=== PATIENT | male | born 1965 | race Caucasian/White ===

== ENCOUNTER 2017-08-03 10:55 | Day surgery (SDC) | payer MEDICARE, OTHER ==
[2017-07-14 15:15] VITALS: BMI 35.6
[~2017-08-03 10:55] MED LIST: LACTATED RINGERS 1,000 ML IV SCH
[2017-08-03 11:55] VITALS: RESP 18; TEMP 98
[2017-08-03] MEDS ORDERED: LIDOCAINE 1% 20 ML VIAL (10MG/ML) FOR IV START INTRADERMA ONE (12:03)
[2017-08-03] MEDS ORDERED: LIDOCAINE 1% INJ 10MG/ML (20 ML MDV) ONE (12:36)
[2017-08-03] MEDS ORDERED: PROPOFOL 10 MG/ML 20 ML VIAL IV ONE (12:36)
--- NOTE | 2017-08-03 13:27 | P.PCN ---
Date of Procedure: 08/03/17 Procedure(s) Performed: Procedures: Esophagogastroduodenoscopy and biopsy. Colonoscopy through ostomy. Preoperative diagnosis: Chronic reflux symptoms and blood in the stool. Postoperative diagnosis: 1. Very small sliding hiatal hernia with no obvious esophagitis or complicated reflux disease. 2. Mild antral gastritis with no ulcers or gastric outlet obstruction. 3. S/P Batista's sigmoid resection with placement of colostomy. 4. Sigmoid diverticulosis with no evidence of acute diverticulitis or strictures. 5. No polyps or tumors. Preparation: HalfLytely prep. Sedation: Was provided by anesthesia Brief clinical history: The patient is a 52-year-old male who is scheduled for this evaluation because of chronic reflux symptoms and because of history of tubular adenoma and prior sigmoid resection for complicated diverticular disease with placement of colostomy. The patient wants to have the colostomy reversed reversed if possible. Procedure: With the patient on his left lateral decubitus position and after informed consent and adequate sedation, I passed the Olympus-GIF 160 video upper endoscope through the cricopharyngeus down the esophagus. GE junction was around 42-43 cm from the incisors and there was a very small sliding hiatal hernia. The esophagus did not show any erosions, ulcers, strictures or Rascon' s esophagus. The endoscope was then passed into the stomach which was insufflated with air and inspected in detail including the retroflex view in the cardia. There was some mottling and erythema in the antrum but no ulcers or erosions. Pyloric channel, duodenal bulb, post bulbar area and descending duodenum appeared within normal limits. Because of his symptoms, I obtained biopsies from the duodenum in addition to biopsies from the antrum and esophagus then the endoscope was withdrawn and I proceeded with colonoscopy through the ostomy site. The ostomy area appeared healthy and there was evidence of herniation in its immediate proximity. The Olympus CFQ 160L video colonoscope was then inserted through the ostomy site and advanced to the cecum. There was diverticulosis in the sigmoid as previously described with no evidence of acute diverticulitis or strictures. No polyps or tumors were seen. The patient tolerated the procedure well. Plan: The patient was reassured. Will await biopsy results. The patient will schedule follow-up visit with surgery for evaluation for candidacy for revision of his colostomy. With her history of polyps, I am recommending repeat exam in 5 years.
[2017-08-03 13:31] VITALS: BP 103/62; PULSE 87
== END 2017-08-03 14:11 | disposition home or self-care (01) ==
LOC: ORWHC2ENDO 10:55
DX: K29.50 Unspecified chronic gastritis without bleeding (principal); K44.9 Diaphragmatic hernia without obstruction or gangrene; K57.30 Diverticulosis of large intestine without perforation or abscess without bleeding; Z90.49 Acquired absence of other specified parts of digestive tract; Z93.3 Colostomy status; K21.9 Gastro-esophageal reflux disease without esophagitis; K92.1 Melena; Z86.010 Personal history of colon polyps; J44.9 Chronic obstructive pulmonary disease, unspecified; I10 Essential (primary) hypertension; G47.33 Obstructive sleep apnea (adult) (pediatric); E07.9 Disorder of thyroid, unspecified; F41.9 Anxiety disorder, unspecified; Z91.030 Bee allergy status; Z91.09 Other allergy status, other than to drugs and biological substances; Z79.891 Long term (current) use of opiate analgesic; Z79.51 Long term (current) use of inhaled steroids; Z79.899 Other long term (current) drug therapy
CPT/HCPCS: 88305; 88342; 44388; 43239; J2001; J2704

== ENCOUNTER → 2017-11-13 | Outpatient (CLI) | payer MEDICARE, OTHER ==
[2017-11-13 10:57] LABS: HCT 44.6 % (39.0-53.0); HGB 14.8 gm/dL (13.0-17.5); MCH 31.4 pg (25.0-35.0); MCHC 33.2 g/dL (31.0-37.0); MCV 94.5 fL (80.0-100.0); Mean Platelet Volume 7.8; Platelet Count 214 k/uL (150-450); RBC 4.72 m/uL (4.30-5.90); WBC 8.3 k/uL (3.8-10.6)
[2017-11-13 11:24] LABS: Potassium 4.7 mmol/L (3.5-5.1)
== END | disposition home or self-care (01) ==
LOC: LABPAT 10:16
PROVIDERS: ATTEND Surgery
DX: Z01.812 Encounter for preprocedural laboratory examination (principal); K57.32 Diverticulitis of large intestine without perforation or abscess without bleeding; Z01.818 Encounter for other preprocedural examination
CPT/HCPCS: 36415; 80051; 85027; 86850; 86900; 86901

== ENCOUNTER 2017-11-17 09:12 | Day surgery (SDC) | payer MEDICARE, OTHER ==
[2017-11-16 10:28] VITALS: BMI 35.9
[2017-11-17 09:54] VITALS: TEMP 98
[2017-11-17] MEDS ORDERED: LIDOCAINE 1% INJ 10MG/ML (20 ML MDV) ONE (10:31)
[2017-11-17] MEDS ORDERED: PROPOFOL 10 MG/ML 20 ML VIAL IV ONE (10:31)
--- NOTE | 2017-11-17 10:35 | P.GSHP ---
History of Present Illness H&P Date: 11/17/17 Chief Complaint: GERD, history of perforated diverticulitis This is a 52-year-old male who is with of GERD. Patient also has a history of previous perforated diverticulitis with colostomy. Patient presents today for EGD colonoscopy. He will be undergoing reversal of colostomy in the near future. Past Medical History Past Medical History: Asthma, COPD, GERD/Reflux, Hypertension, Pneumonia, Skin Disorder, Sleep Apnea/CPAP/BIPAP, Thyroid Disorder Additional Past Medical History / Comment(s): HX OF DIVERTICULITIS, PERFORATED COLON DURING COLONOSCOPY (2010) - HAS COLOSTOMY., SKIN BREAKDOWN AROUND STOMA., INCISIONAL AND STOMA HERNIA., HX OF HEART MURMUR & ASTHMA A CHILD. , SOB WITH STAIRS., BACK PAIN , UNABLE TO STAND FOR LONG PERIODS., USES SLEEP APNEA MACHINE. History of Any Multi-Drug Resistant Organisms: MRSA Date of last positivie culture/infection: 2010 MDRO Source:: abdominal incision Past Surgical History: Bowel Resection Additional Past Surgical History / Comment(s): colostomy for ruptured diverticulitis in 2010, colonsocopy, WRIST SURGERY. Past Anesthesia/Blood Transfusion Reactions: No Reported Reaction Additional Past Anesthesia/Blood Transfusion Reaction / Comment(s): . Past Psychological History: Anxiety, Depression Smoking Status: Current every day smoker Past Alcohol Use History: None Reported Additional Past Alcohol Use History / Comment(s): SMOKES 1 PPD OR LESS. STARTED SMOKING AGE 8. Past Drug Use History: Marijuana Additional Drug Use History / Comment(s): CURRENT MARIJUANA USE. , INSTRUCTED NO MARIJUANA FOR 24 HOURS PRIOR TO SURGERY. - Past Family History Mother Family Medical History: Cancer Sister(s) Family Medical History: Cancer Mother Sister(s) Family Medical History: Cancer Medications and Allergies Home Medications Medication Instructions Recorded Confirmed Type Albuterol Inhaler [Ventolin 1 - 2 puff INHALATION QID PRN 10/04/14 11/17/17 History Inhaler] Albuterol Nebulized [Ventolin 2.5 mg INHALATION QID PRN 10/04/14 11/17/17 History Nebulized] Budesonide-Formot 160-4.5 Mcg 2 puff INHALATION BID 10/04/14 11/17/17 History [Symbicort 160-4.5 Mcg Inhaler] Lisinopril [Lisinopril] 40 mg PO QAM 10/04/14 11/17/17 History Ranitidine HCl 150 mg PO BID 10/04/14 11/17/17 History buPROPion XL [Wellbutrin XL] 150 mg PO QAM 10/04/14 11/17/17 History ALPRAZolam [Xanax] 1 mg PO BID PRN 07/14/17 11/17/17 History HYDROcodone/APAP 7.5-325MG [[place] 1 tab PO BID PRN 07/14/17 11/17/17 History 7.5-325] Levothyroxine Sodium [Synthroid] 50 mcg PO QAM 07/14/17 11/17/17 History Loratadine [Claritin] 10 mg PO DAILY PRN 07/14/17 11/17/17 History Omeprazole [PriLOSEC] 20 mg PO DAILY 07/14/17 11/17/17 History Fluticasone Nasal [place] [Flonase 1 spray EA NOSTRIL DAILY 11/16/17 11/17/17 History Nasal [place]] Ibuprofen 400 mg PO ONCE PRN 11/16/17 11/17/17 History Allergies Allergy/AdvReac Type Severity Reaction Status Date / Time bee pollen Allergy Severe Swelling Verified 11/17/17 09:43 tiotropium Allergy Unknown States Verified 11/17/17 09:43 [From Spiriva with Breathing HandiHaler] worse. COLOPLAST BRAND COLOSCOPY BAG AdvReac Rash/Hives Uncoded 11/17/17 09:43 Surgical - Exam Vital Signs Temp Pulse BP Pulse Ox 98 F 90 108/68 96 11/17/17 09:51 11/17/17 09:51 11/17/17 09:51 11/17/17 09:51 - General well developed, no distress - Eyes PERRL - ENT normal pinna - Neck no masses - Respiratory normal expansion - Cardiovascular Rhythm: regular - Abdomen Large parastomal hernia and incisional hernia Abdomen: soft, non tender Assessment and Plan Assessment: GERD with history of colostomy due to perforated diverticula is. We'll perform EGD and colonoscopy.
--- NOTE | 2017-11-17 10:52 | P.OP ---
Date of Procedure: 11/17/17 Preoperative Diagnosis: GERD History of diverticulitis Postoperative Diagnosis: Antral gastritis Mild diverticulosis Procedure(s) Performed: EGD Colonoscopy Anesthesia: MAC Surgeon: Parish Perez Pathology: other (Antrum) Condition: stable Disposition: PACU Description of Procedure: The patient's placed on the endoscopy table in the lateral position. He received IV sedation. The gastroscope placed oropharynx passed in the esophagus and stomach. Scope was then placed through the pylorus. The first and second portion of the duodenum appeared normal. The scope was then brought back and the antrum this appeared mildly inflamed. A biopsies performed. The scope was then retroflexed and remainder stomach appeared normal. There is no significant hiatal hernia. The GE junction was at40 cm the distal esophagus appeared normal. The proximal esophagus. Normal. Scope was withdrawn for patient. Next digital rectal exam was performed which revealed no abnormalities. The flexible colonoscope was then placed patient anus and passed throughout the rectal stump. The rectal stump measured approximately 20 cm length. There were no polyps or tumors seen rectal stump. The scope was withdrawn for patient. Next the colonic scope was placed the patient's colostomy and passed throughout the entire colon. The ileocecal valve was visualized. The cecum, ascending colon appeared normal. In the transverse colon was a few scattered diverticuli. The scope was then brought back the descending colon and this appeared normal. Scope was withdrawn for patient.
[2017-11-17 11:53] VITALS: BP 110/60; PULSE 92; RESP 16
== END 2017-11-17 11:54 | disposition home or self-care (01) ==
LOC: ORWHC2ENDO 09:12
PROVIDERS: ATTEND Surgery
DX: K29.50 Unspecified chronic gastritis without bleeding (principal); K57.90 Diverticulosis of intestine, part unspecified, without perforation or abscess without bleeding; Z93.3 Colostomy status; K21.9 Gastro-esophageal reflux disease without esophagitis; J44.9 Chronic obstructive pulmonary disease, unspecified; I10 Essential (primary) hypertension; F17.210 Nicotine dependence, cigarettes, uncomplicated; Z87.01 Personal history of pneumonia (recurrent); E07.9 Disorder of thyroid, unspecified; F41.9 Anxiety disorder, unspecified; F32.9 Major depressive disorder, single episode, unspecified; G47.33 Obstructive sleep apnea (adult) (pediatric); Z99.89 Dependence on other enabling machines and devices; Z79.51 Long term (current) use of inhaled steroids; Z79.899 Other long term (current) drug therapy; Z91.030 Bee allergy status; Z88.8 Allergy status to other drugs, medicaments and biological substances; Z91.09 Other allergy status, other than to drugs and biological substances
CPT/HCPCS: 88305; 44388; 43239; J2001; J2704

== ENCOUNTER 2017-11-18 08:57 | Inpatient (IN) | payer MEDICARE, OTHER ==
[2017-11-16 10:44] VITALS: BMI 35.9
[~2017-11-18 08:57] MED LIST changes: +DEXAMETHASONE SOD PHOSPHATE 10 MG/ML 1 ML VIAL IV ONE; +HEPARIN SODIUM,PORCINE 5,000 UNIT/ML 1 ML VIAL SQ ONE; +HYDROmorphone 0.5 MG/0.5 ML SYRINGE IVP PRN; +MIDAZOLAM 2 MG/2 ML VIAL IV PRN; +ONDANSETRON 4 MG/2 ML VIAL IVP ONE; +ceFAZolin IN SWFI 2 GM/20 ML SYRINGE IVP ONE; +metroNIDAZOLE-NS PMX 500 MG in SALINE 1 100ML.BAG IVPB ONE
[2017-11-18] MEDS ORDERED: fentaNYL (PF) 50 MCG/ML 2 ML AMP IV ONE (10:05)
[2017-11-18] MEDS ORDERED: NALOXONE 0.4 MG/ML 1 ML VIAL IV PRN (10:50)
--- NOTE | 2017-11-18 11:24 | P.GSHP ---
History of Present Illness H&P Date: 11/18/17 Chief Complaint: History of perforated diverticulitis This a 52-year-old male who presents today for reversal of colostomy and repair of parastomal hernia. Patient underwent Adam procedure approximately 7 years ago. Patient presents today for reversal of colostomy area patient was reversed surgery including wound infection, recurrent colostomy bleeding. Past Medical History Past Medical History: Asthma, COPD, GERD/Reflux, Hypertension, Pneumonia, Skin Disorder, Sleep Apnea/CPAP/BIPAP, Thyroid Disorder Additional Past Medical History / Comment(s): HX OF DIVERTICULITIS, PERFORATED COLON DURING COLONOSCOPY (2010) - HAS COLOSTOMY., SKIN BREAKDOWN AROUND STOMA., INCISIONAL AND STOMA HERNIA., HX OF HEART MURMUR & ASTHMA A CHILD. , SOB WITH STAIRS., BACK PAIN , UNABLE TO STAND FOR LONG PERIODS., USES SLEEP APNEA MACHINE. History of Any Multi-Drug Resistant Organisms: MRSA Date of last positivie culture/infection: 2010 MDRO Source:: abdominal incision Past Surgical History: Bowel Resection Additional Past Surgical History / Comment(s): colostomy for ruptured diverticulitis in 2010, colonsocopy, WRIST SURGERY. Past Anesthesia/Blood Transfusion Reactions: No Reported Reaction Additional Past Anesthesia/Blood Transfusion Reaction / Comment(s): . Past Psychological History: Anxiety, Depression Smoking Status: Current every day smoker Past Alcohol Use History: None Reported Additional Past Alcohol Use History / Comment(s): SMOKES 1 PPD OR LESS. STARTED SMOKING AGE 8. Past Drug Use History: Marijuana Additional Drug Use History / Comment(s): CURRENT MARIJUANA USE. , INSTRUCTED NO MARIJUANA FOR 24 HOURS PRIOR TO SURGERY. - Past Family History Mother Family Medical History: Cancer Sister(s) Family Medical History: Cancer Mother Sister(s) Family Medical History: Cancer Medications and Allergies Home Medications Medication Instructions Recorded Confirmed Type Albuterol Inhaler [Ventolin 1 - 2 puff INHALATION QID PRN 10/04/14 11/17/17 History Inhaler] Albuterol Nebulized [Ventolin 2.5 mg INHALATION QID PRN 10/04/14 11/17/17 History Nebulized] Budesonide-Formot 160-4.5 Mcg 2 puff INHALATION BID 10/04/14 11/17/17 History [Symbicort 160-4.5 Mcg Inhaler] Lisinopril [Lisinopril] 40 mg PO QAM 10/04/14 11/17/17 History Ranitidine HCl 150 mg PO BID 10/04/14 11/17/17 History buPROPion XL [Wellbutrin XL] 150 mg PO QAM 10/04/14 11/17/17 History ALPRAZolam [Xanax] 1 mg PO BID PRN 07/14/17 11/17/17 History HYDROcodone/APAP 7.5-325MG [[place] 1 tab PO BID PRN 07/14/17 11/17/17 History 7.5-325] Levothyroxine Sodium [Synthroid] 50 mcg PO QAM 07/14/17 11/17/17 History Loratadine [Claritin] 10 mg PO DAILY PRN 07/14/17 11/17/17 History Omeprazole [PriLOSEC] 20 mg PO DAILY 07/14/17 11/17/17 History Fluticasone Nasal [place] [Flonase 1 spray EA NOSTRIL DAILY 11/16/17 11/17/17 History Nasal [place]] Ibuprofen 400 mg PO ONCE PRN 11/16/17 11/17/17 History Allergies Allergy/AdvReac Type Severity Reaction Status Date / Time bee pollen Allergy Severe Swelling Verified 11/18/17 09:49 tiotropium Allergy Unknown States Verified 11/18/17 09:49 [From Spiriva with Breathing HandiHaler] worse. COLOPLAST BRAND COLOSCOPY BAG AdvReac Rash/Hives Uncoded 11/18/17 09:49 Surgical - Exam Vital Signs Temp Pulse Resp BP Pulse Ox 97.8 F 88 16 150/61 95 11/18/17 09:25 11/18/17 09:25 11/18/17 09:25 11/18/17 09:25 11/18/17 09:25 - General well developed, no distress - Eyes PERRL - ENT normal pinna - Neck no masses - Respiratory normal expansion - Cardiovascular Rhythm: regular - Abdomen Left lower quadrant colostomy. There is evidence of ventral hernia and parastomal hernia Abdomen: soft, non tender Assessment and Plan Assessment: History of perforated diverticulitis. Patient will undergo reversal of colostomy and repair of parastomal/ventral hernia
[2017-11-18] MEDS ORDERED: PHENYLEPHRINE-0.9% NACL SYG 1 MG/10 ML SYRINGE ONE (12:06)
[2017-11-18] MEDS ORDERED: VECURONIUM 10 MG VIAL IV ONE (12:06)
[2017-11-18] MEDS ORDERED: PROPOFOL 10 MG/ML 20 ML VIAL IV ONE (12:06)
[2017-11-18] MEDS ORDERED: KETAMINE 10 MG/ML 20 ML VIAL ONE (12:06)
[2017-11-18] MEDS ORDERED: LIDOCAINE 1% INJ 10MG/ML (20 ML MDV) ONE (12:06)
[2017-11-18] MEDS ORDERED: MIDAZOLAM 2 MG/2 ML VIAL ONE (12:06)
[2017-11-18] MEDS ORDERED: SUCCINYLCHOLINE CHLORIDE VIAL 200 MG/10 ML VIAL IV ONE (12:06)
[2017-11-18] MEDS ORDERED: fentaNYL (PF) 50 MCG/ML 2 ML AMP ONE (12:06)
[2017-11-18] MEDS ORDERED: ALBUTEROL INHALER 60 PUFF/8 GM INHALER INHALATION ONE (12:06)
[2017-11-18] MEDS ORDERED: LACTATED RINGERS 1,000 ML IV ONE ×2 (13:08→15:13)
[2017-11-18] MEDS ORDERED: MORPHINE SULFATE 4 MG/ML SYRINGE IVP PRN (15:27)
[2017-11-18] MEDS ORDERED: BENZOCAINE/MENTHOL LOZENG 1 EACH LOZENGE MUCOUS MEM PRN (15:27)
[2017-11-18] MEDS: BUPIVACAINE (PF) 0.5% 31.3 ML, HYDROMORPHONE (PF) 5 MG in SODIUM CHLORIDE 0.9% 218 ML EPIDURAL PRN (15:44)
[2017-11-18] MEDS ORDERED: BUPIVACAINE (PF) 0.25% 30 ML VIAL EPIDURAL ONE (16:00)
--- NOTE | 2017-11-18 16:29 | P.OP ---
Date of Procedure: 11/18/17 Preoperative Diagnosis: History of perforated diverticulitis Incarcerated incisional and parastomal hernia Postoperative Diagnosis: Adhesions Incarcerated incisional hernia Incarcerated parastomal hernia Severe scarring of rectal stump Procedure(s) Performed: Lysis of adhesions Repair of incarcerated incisional hernia Repair of incarcerated parastomal hernia Partial colectomy Omentectomy Takedown of splenic flexure Anesthesia: HARMAN Surgeon: Parish Perez Estimated Blood Loss (ml): 20 Pathology: other (Omentum, colon) Condition: stable Disposition: PACU Description of Procedure: The patient's placed the operative table in the supine position. He received general anesthesia. He was then placed in dorsal lithotomy position. His abdomen was prepped and draped in usual sterile fashion. The skin was entered through the midline. There was a large incisional hernia located underneath the skin. The incarcerated hernia containing omentum. Was entered. And then the omentum was dissected off of the abdominal wall. Several pieces of omentum was sent to pathology. These were transected with the LigaSure device. The stoma was then transected at the fascial level using a GI stapler. And then approximately 20 minutes of operative time used to lyse adhesions and small bowel. The white line of T[place] was divided in the left colon was mobilized. The splenic flexure was taken down. An adequate length of colon was found and then the pursestring device is placed on the proximal colon and the colon was opened and the 25 mm EEA stapler anvil was placed in the colon and the pursestring was secured. At this point the rectal stump was visualized. There is a Prolene tags on the rectal stump. There was dense inflammatory changes in the patient's pelvis. At this point the 25 mm dilator was placed patient anus and into the rectum. The rectal stump was below the peritoneal reflection. The peritoneal reflection was opened using left cautery and then the rectal stump was visualized. The rectal stump was quite scarred. During mobilization of the dilator there was a tear of the rectal stump. The dilator was visualized. At this point it was decided not to reverse the colostomy. A suitable spot for the colostomy was chosen left upper quadrant. The fascia in the midline was repaired using looped PDS suture. Skin was closed rajendra. The colostomy was then excised by dividing mucus containing is junction and then using electrocautery the colostomy was dissected free. There was a large piece of incarcerated omentum within the colostomy site. This was transected using the LigaSure device. The fascia of the colostomy site was then closed using 0 Ethibond suture. A LUPE drains placed through separate stab incision and secured to skin. The skin was then closed rajendra. Next the colostomy then matured with 3-0 Vicryl suture. Patient was sent to recovery room stable condition.
[2017-11-18] MEDS: ONDANSETRON 4 MG/2 ML VIAL IVP PRN (18:46)
[2017-11-18 19:10] LABS: HCT 47.7 % (39.0-53.0); HGB 16.5 gm/dL (13.0-17.5); MCH 32.5 pg (25.0-35.0); MCHC 34.6 g/dL (31.0-37.0); Mean Platelet Volume 7.6; Platelet Count 260 k/uL (150-450); RBC 5.08 m/uL (4.30-5.90); RDW 12.9 % (11.5-15.5); WBC 19.7 k/uL (3.8-10.6)
[2017-11-18 19:20] LABS: Anion Gap 12 mmol/L; Blood Urea Nitrogen 22 mg/dL (9-20); Calcium 8.9 mg/dL (8.4-10.2); Carbon Dioxide 22 mmol/L (22-30); Chloride 104 mmol/L (98-107); Glucose 173 mg/dL (74-99); Potassium 4.8 mmol/L (3.5-5.1); Sodium 138 mmol/L (137-145)
[2017-11-18 19:44] LABS: Band Neutrophils % 4 %; Neutrophils % (M) 87 %; Nucleated Red Blood Cells 0 /100 WBC (0-0); Polychromasia Present; Total Cells Counted 100
[2017-11-18 19:49] LABS: Lymphocytes # (M) 0.59 k/uL (1.0-4.8); Monocytes # (M) 1.18 k/uL (0-1.0)
[2017-11-18] MEDS: D5-0.45% NACL WITH KCL 20MEQ/L 1,000 ML IV SCH (20:25)
[2017-11-18] MEDS: ALVIMOPAN 12 MG CAPSULE PO SCH (20:27)
[2017-11-18] MEDS: FAMOTIDINE 20 MG/2 ML VIAL IV SCH (20:27)
[2017-11-18] MEDS ORDERED: FAMOTIDINE 20 MG TAB PO SCH (21:00)
[2017-11-18] MEDS: SYMBICORT 160-4.5 MCG INHALER INHALATION SCH (21:39)
[2017-11-19] MEDS: D5-0.45% NACL WITH KCL 20MEQ/L 1,000 ML IV SCH ×5 (04:29→22:09)
[2017-11-19] MEDS: LEVOTHYROXINE 50 MCG TAB PO SCH (04:30)
[2017-11-19] MEDS: FAMOTIDINE 20 MG/2 ML VIAL IV SCH ×2 (08:35→21:08)
[2017-11-19] MEDS: ALVIMOPAN 12 MG CAPSULE PO SCH ×2 (08:36→21:08)
[2017-11-19] MEDS: PANTOPRAZOLE 40 MG TABLET PO SCH (08:36)
[2017-11-19] MEDS: LISINOPRIL 20 MG TAB PO SCH (08:36)
[2017-11-19] MEDS: buPROPion XL 150 MG TAB.ER.24H PO SCH (08:36)
[2017-11-19] MEDS: PIPERACILLIN-TAZOBACTAM 3.375 GM in DEXTROSE/WATER 1 50ML.BAG IVPB SCH ×3 (08:57→22:11)
[2017-11-19] MEDS: ONDANSETRON 4 MG/2 ML VIAL IVP PRN (09:05)
[2017-11-19] MEDS: SYMBICORT 160-4.5 MCG INHALER INHALATION SCH ×2 (09:40→22:50)
--- NOTE | 2017-11-19 12:07 | P.PN ---
Subjective Progress Note Date: 11/19/17 52-year-old seen and examined at bedside this morning. Patient states feeling sleepy this morning did not sleep well last night. Patient is postop November 18 repair of incarcerated incisional and parastomal hernia partial colectomy. Patient has an epidural per anesthesia for pain control. An ostomy left lower quadrant stoma pink no stool in the ostomy bag. Reports no nausea vomiting. States his belching no stool Objective - Vital Signs Vital signs: Vital Signs Temp 98.0 F 11/19/17 07:00 Pulse 111 H 11/19/17 07:00 Resp 18 11/19/17 07:00 BP 167/93 11/19/17 07:00 Pulse Ox 92 L 11/19/17 07:00 Intake & Output 11/18/17 11/19/17 11/19/17 18:59 06:59 18:59 Intake Total 2607.4 600 Output Total 500 550 50 Balance 2107.4 -550 550 Weight 101.151 kg Intake: IV 2607.4 Oral 600 Output: Drainage 50 Abdomen 50 Urine 450 550 Estimated Blood Loss 50 Other: Voiding Method Indwelling Catheter Indwelling Catheter Indwelling Catheter - Exam Physical exam 52-year-old male sitting up in bed awake and alert oriented 3 states is tired no sleep Lungs adequate air movement bilaterally on 3 L nasal cannula will use IS with coaching can achieve 1000 Heart S1-S2 audible and regular Abdomen soft surgical tenderness appropriate not distended bowel tones present belching no stool LUPE drain right lower quadrant serous drainage in the bulb few hypoactive bowel tones urinating no difficulty tolerating a diet with no nausea no vomiting Extremities no edema noted to the bilateral lower - Labs CBC & Chem 7: 11/18/17 18:27 11/18/17 18:27 Labs: Abnormal Lab Results - Last 24 Hours (Table) 11/18/17 11/18/17 Range/Units 18:27 18:27 WBC 19.7 H (3.8-10.6) k/uL Neutrophils # (Manual) 17.90 H (1.3-7.7) k/uL Lymphocytes # (Manual) 0.59 L (1.0-4.8) k/uL Monocytes # (Manual) 1.18 H (0-1.0) k/uL BUN 22 H (9-20) mg/dL Glucose 173 H (74-99) mg/dL Assessment and Plan Assessment: Impression Depressive disorder nonspecified Present on admission right upper quadrant pain with an ultrasound of the gallbladder showing gallstones with thickening of the gallbladder suspect due to acute cholecystitis Elevated WBC with normal liver function test History multiple sclerosis Debility use of a walker's motorized scooter due to MS Computed tomography scan abdomen pelvis findings are compatible with cholecystitis cholelithiasis Postop November 17 laparoscopic cholecystectomy with conversion to an open procedure due to acute cholecystitis with patchy necrosis of the gallbladder Postop expected acute blood loss anemia Expected postop elevated AST and ALT Plan Await further recommendations by GI service for the elevated liver enzymes Advance diet to full liquid Continue postop surgical course Hep-Lock IV PT OT eval May benefit from subacute rehab Pain control IV fluid for hydration DVT and GI prophylaxis incentive spirometer every 1 hour while awake Further surgical recommendations pending will follow The above impression and plan of care have been discussed and directed by signing physician. Debbie Naik nurse practitioner acting as scribe for signing physician.
--- NOTE | 2017-11-19 12:30 | P.CNPUL ---
<Frances Melissa - Last Filed: 11/19/17 12:03> History of Present Illness Consult date: 11/19/17 Requesting physician: Parish Perez Reason for consult: dyspnea Chief complaint: Abdominal discomfort History of present illness: This is a very pleasant 52-year-old gentleman who follows with Dr. Vyas as his primary care physician. He has history of hypertension, gastroesophageal reflux disease, hypothyroidism. He has chronic obstructive pulmonary disease and chronic and ongoing tobacco dependence. He utilizes Symbicort and albuterol. He has a baseline FEV1 of 55% of predicted. He also has obstructive sleep apnea and follows with Dr. Fritz in our office for the same. His last sleep titration was in October 2014. He has severe symptomatic obstructive sleep apnea with an AHI of 130. His BiPAP pressures are 18/14 cm of water. He utilizes Al FX small size mask with a chinstrap. He also has severe nocturnal oxygen desaturation and chronic hypersomnia with Burton score of 22. He also has a history of perforated colon with subsequent colectomy and colostomy in 2010. He has multiple abdominal incisional hernias as well as parastomal hernia. He did obtain preoperative clearance from Dr. Fritz. He presented here yesterday for an elective surgical repair with Dr. Perez. He performed lysis of adhesions, repair of incarcerated incisional hernia, repair of incarcerated parastomal hernia, partial colectomy, omentectomy and takedown of splenic flexure. The patient is seen today in consultation on the surgical floor. He is currently awake and alert in no acute distress. He does have an epidural for pain control with Bupivacaine/ Dilaudid. He did bring his BiPAP machine from home and was wearing it last night and into this morning. He denies any shortness of breath, cough or congestion. He does feel there is some thick phlegm in his throat. We will add Mucinex. He is maintaining good O2 saturations in the 90s on 3 L/m per nasal cannula. He's been afebrile. His stoma is pink and viable. There is minimal output. Surgical dressing is dry and intact. Review of Systems Eyes: denies blurred vision, denies decreased vision Ears: deny: decreased hearing Ears, nose, mouth and throat: Denies headache, Denies sore throat Cardiovascular: Denies chest pain, Denies shortness of breath Respiratory: Denies cough Gastrointestinal: Reports abdominal pain Genitourinary: Reports as per HPI Musculoskeletal: Denies myalgias Integumentary: Denies pruritus, Denies rash Neurological: Denies numbness, Denies weakness Psychiatric: Denies anxiety, Denies depression Endocrine: Denies fatigue, Denies weight change Past Medical History Past Medical History: Asthma, COPD, GERD/Reflux, Hypertension, Pneumonia, Skin Disorder, Sleep Apnea/CPAP/BIPAP, Thyroid Disorder Additional Past Medical History / Comment(s): HX OF DIVERTICULITIS, PERFORATED COLON DURING COLONOSCOPY (2010) - HAS COLOSTOMY., SKIN BREAKDOWN AROUND STOMA., INCISIONAL AND STOMA HERNIA., HX OF HEART MURMUR & ASTHMA A CHILD. , SOB WITH STAIRS., BACK PAIN , UNABLE TO STAND FOR LONG PERIODS., USES SLEEP APNEA MACHINE. History of Any Multi-Drug Resistant Organisms: MRSA Date of last positivie culture/infection: 2010 MDRO Source:: abdominal incision Past Surgical History: Bowel Resection Additional Past Surgical History / Comment(s): colostomy for ruptured diverticulitis in 2010, colonsocopy, WRIST SURGERY. Past Anesthesia/Blood Transfusion Reactions: No Reported Reaction Additional Past Anesthesia/Blood Transfusion Reaction / Comment(s): . Past Psychological History: Anxiety, Depression Smoking Status: Current every day smoker Past Alcohol Use History: None Reported Additional Past Alcohol Use History / Comment(s): SMOKES 1 PPD OR LESS. STARTED SMOKING AGE 8. Past Drug Use History: Marijuana Additional Drug Use History / Comment(s): occassional marijuana use - Past Family History Mother Family Medical History: Cancer Sister(s) Family Medical History: Cancer Mother Sister(s) Family Medical History: Cancer Medications and Allergies Home Medications Medication Instructions Recorded Confirmed Type Albuterol Inhaler [Ventolin 1 - 2 puff INHALATION RT-QID PRN 10/04/14 11/18/17 History Inhaler] Albuterol Nebulized [Ventolin 2.5 mg INHALATION RT-QID PRN 10/04/14 11/18/17 History Nebulized] Budesonide-Formot 160-4.5 Mcg 2 puff INHALATION RT-BID 10/04/14 11/18/17 History [Symbicort 160-4.5 Mcg Inhaler] Lisinopril [Lisinopril] 40 mg PO QAM 10/04/14 11/18/17 History Ranitidine HCl 150 mg PO BID 10/04/14 11/18/17 History buPROPion XL [Wellbutrin XL] 150 mg PO QAM 10/04/14 11/18/17 History ALPRAZolam [Xanax] 1 mg PO BID PRN 07/14/17 11/18/17 History HYDROcodone/APAP 7.5-325MG [Dixon 1 tab PO BID PRN 07/14/17 11/18/17 History 7.5-325] Levothyroxine Sodium [Synthroid] 50 mcg PO QAM 07/14/17 11/18/17 History Loratadine [Claritin] 10 mg PO DAILY PRN 07/14/17 11/18/17 History Omeprazole [PriLOSEC] 20 mg PO DAILY 07/14/17 11/18/17 History Fluticasone Nasal [place] [Flonase 1 spray EA NOSTRIL DAILY 11/16/17 11/18/17 History Nasal [place]] Ibuprofen 400 mg PO ONCE PRN 11/16/17 11/18/17 History Allergies Allergy/AdvReac Type Severity Reaction Status Date / Time bee pollen Allergy Severe Swelling Verified 11/18/17 09:49 tiotropium Allergy Unknown States Verified 11/18/17 09:49 [From Spiriva with Breathing HandiHaler] worse. COLOPLAST BRAND COLOSCOPY BAG AdvReac Rash/Hives Uncoded 11/18/17 09:49 Physical Exam Vitals: Vital Signs Temp Pulse Resp BP Pulse Ox 11/19/17 07:00 98.0 F 111 H 18 167/93 92 L 11/19/17 00:45 98.3 F 113 H 19 149/93 92 L 11/19/17 00:00 113 H 19 11/18/17 19:15 109 H 144/73 11/18/17 19:00 107 H 152/88 11/18/17 18:45 105 H 137/81 11/18/17 18:30 108 H 138/82 11/18/17 18:15 108 H 149/91 11/18/17 18:00 20 11/18/17 17:53 110 H 138/88 93 L 11/18/17 17:39 107 H 20 130/75 91 L 11/18/17 17:28 109 H 20 120/71 89 L 11/18/17 17:15 103 H 138/84 11/18/17 16:30 102 H 18 118/66 95 11/18/17 16:15 109 H 20 135/76 96 11/18/17 16:00 109 H 20 163/92 95 11/18/17 15:45 98 20 166/93 93 L 11/18/17 15:30 98 20 166/93 93 L 11/18/17 15:21 100 F H 98 20 182/98 93 L Intake and Output 11/18/17 11/19/17 11/19/17 22:59 06:59 14:59 Intake Total 507.4 600 Output Total 200 550 50 Balance 307.4 -550 550 Intake: IV 507.4 Oral 600 Output: Drainage 50 Abdomen 50 Urine 200 550 Other: Voiding Method Indwelling Catheter Indwelling Catheter Indwelling Catheter Weight 101.151 kg GENERAL EXAM: Alert, fairly comfortable in no apparent distress. HEAD: Normocephalic. EYES: Normal reaction of pupils, equal size. NOSE: Clear with pink turbinates. THROAT: There is crowding of the posterior pharynx. No erythema or exudates. NECK: Short. No masses, no JVD. CHEST: No chest wall deformity. LUNGS: Equal air entry with no crackles, wheeze, rhonchi or dullness. CVS: S1 and S2 normal with no audible murmur, regular rhythm. ABDOMEN: Stoma is pink and viable, dressings dry and intact. SPINE: No scoliosis or deformity SKIN: No rashes CENTRAL NERVOUS SYSTEM: No focal deficits, tone is normal in all 4 extremities. EXTREMITIES: There is no peripheral edema. No clubbing, no cyanosis. Peripheral pulses are intact. Results - Laboratory Findings CBC and BMP: 11/18/17 18:27 11/18/17 18:27 Abnormal lab findings: Abnormal Labs 11/18/17 11/18/17 18:27 18:27 WBC 19.7 H Neutrophils # (Manual) 17.90 H Lymphocytes # (Manual) 0.59 L Monocytes # (Manual) 1.18 H BUN 22 H Glucose 173 H Assessment and Plan Assessment: Impression: #1 Incarcerated incisional and parastomal hernias with previous history of perforated diverticulitis and colostomy placement in 2010. Status post lysis of adhesions, repair of incarcerated incisional hernia, repair of incarcerated parastomal hernia, partial colectomy, omentectomy, takedown of splenic flexure. Postoperative day #1. #2 Severe traumatic obstructive sleep apnea with an AHI of 130 along with nocturnal oxygen desaturations utilizing BiPAP in the outpatient setting 18/14 cm of water. #3 Morbid obesity. #4 Chronic hypersomnia with Burton score of 22. #5 Chronic and ongoing tobacco dependence. #6 Chronic obstructive pulmonary disease with an FEV1 value 55% of predicted. #7 Seasonal ALLERGIC rhinitis. Plan: The patient was seen and evaluated by Dr. Fritz. He is currently stable from the pulmonary standpoint. He'll continue to utilize his BiPAP during the evenings and throughout the day while napping. Cautious use of narcotics. He is encouraged regarding increased use the incentive spirometer and cough and deep breathing exercises. Continue Symbicort and albuterol. Mucinex. He is on antibiotics in the form of Zosyn. Continue Protonix for GI prophylaxis. He is also again encouraged regarding the importance of complete smoking cessation. NicoDerm patch has been ordered. We will increase his activity as tolerated. We'll continue to follow and make further recommendations based on his clinical status. I, the cosigning physician, performed a history & physical examination of the patient. Lungs sounds are clear. Maintaining good O2 saturations in the 90s on 3 L/m per nasal cannula. I discussed the assessment and plan of care with my nurse practitioner, Frances Melissa. I attest to the above note as dictated by her. Time with Patient: Greater than 30 <Luis A Fritz - Last Filed: 11/19/17 15:51> Physical Exam Vitals: Vital Signs Temp Pulse Resp BP Pulse Ox 11/19/17 14:14 97.5 F L 96 17 142/86 94 L 11/19/17 07:00 98.0 F 111 H 18 167/93 92 L 11/19/17 00:45 98.3 F 113 H 19 149/93 92 L 11/19/17 00:00 113 H 19 11/18/17 19:15 109 H 144/73 11/18/17 19:00 107 H 152/88 11/18/17 18:45 105 H 137/81 11/18/17 18:30 108 H 138/82 11/18/17 18:15 108 H 149/91 11/18/17 18:00 20 11/18/17 17:53 110 H 138/88 93 L 11/18/17 17:39 107 H 20 130/75 91 L 11/18/17 17:28 109 H 20 120/71 89 L 11/18/17 17:15 103 H 138/84 11/18/17 16:30 102 H 18 118/66 95 11/18/17 16:15 109 H 20 135/76 96 11/18/17 16:00 109 H 20 163/92 95 Intake and Output 11/19/17 11/19/17 11/19/17 06:59 14:59 22:59 Intake Total 1830 Output Total 550 65 Balance -550 1765 Intake: Intake, IV Titration 1050 Amount D5-0.45% NaCl with KCl 1000 20Meq/l 1,000 ml @ 125 mls/hr IV .Q8H JAKE Rx#: [id number] Piperacillin-Tazobactam 3 50 .375 gm In Dextrose/Water 1 50ml.bag @ 12.5 mls/hr IVPB Q8HR JAKE Rx#: [id number] Oral 780 Output: Drainage 65 Abdomen 65 Urine 550 Other: Voiding Method Indwelling Catheter Indwelling Catheter Results - Laboratory Findings CBC and BMP: 11/18/17 18:27 11/18/17 18:27 Abnormal lab findings: Abnormal Labs 11/18/17 11/18/17 18:27 18:27 WBC 19.7 H Neutrophils # (Manual) 17.90 H Lymphocytes # (Manual) 0.59 L Monocytes # (Manual) 1.18 H BUN 22 H Glucose 173 H Assessment and Plan Assessment: This is a joint evaluate was done along with a nurse practitioner. The patient is postop day #1. The patient has no major respiratory difficulties. Pain is well controlled with an epidural Dilaudid with bupivacaine. The patient utilizing his BiPAP. He has not had any bowel activity yet. Abdomen is nondistended. Incision is clean. We'll continue to follow. His COPD in general is stable for now.
--- NOTE | 2017-11-19 13:02 | PN ---
PROGRESS NOTE CHIEF COMPLAINT: Colostomy and ventral HERNIA. HISTORY OF PRESENT ILLNESS: This gentleman is doing well and has had no problems. He has had no shortness of breath, chest pain, fever and chills, etc. PHYSICAL EXAM: Chest is clear. Cardiac exam is normal and the abdomen is soft and dressing is dry. IMPRESSION: Status post ventral hernia repair and colostomy. PLAN: Probably home today. MMODL / IJN: [id number] /
[2017-11-19] MEDS: guaiFENesin 600 MG TABLET.ER PO SCH ×2 (13:08→21:08)
[2017-11-19] MEDS: NICOTINE 14MG/24HR PATCH TRANSDERM SCH (13:08)
--- NOTE | 2017-11-19 13:08 | CONS ---
CONSULTATION CHIEF COMPLAINT: Ventral hernia and colostomy. HISTORY OF PRESENT ILLNESS: This is another admission for this 52-year-old white male who has come in for elective colostomy reversal and repair of large ventral hernia. He has a history of COPD, hypothyroidism, hypertension. He has been stable and having no problems. REVIEW OF SYSTEMS: He denies any headaches, neurologic problems, change in the vision or the hearing, syncope, cough, hemoptysis, angina, infarctions, orthopnea, PND, abdominal pain, nausea, vomiting, hematemesis, melena, jaundice, renal disease, dysuria, diabetes, etc. Past medical history, family history, and personal and social histories are found in his initial workup. ALLERGIES: He is allergic to stings. MEDICATION: Medications include nicotine patch, Symbicort 160/4.5, vitamin D, fluticasone nasal spray, levothyroxine 0.05 mg, Epi Pens, Claritin, Xanax 1 mg p.r.n., Prilosec 20 mg once a day, Vicodin 7.5 twice a day p.r.n., Wellbutrin XR 150 once a day, Spiriva, Ventolin HFA, lisinopril 40 once a day, and Zantac 150 mg b.i.d. Remainder of his history is unremarkable except that he continues to smoke. He is nondrinker. PHYSICAL EXAM: Blood pressure is 146/88 with a pulse of 88, respirations 24, and temperature 98.7. GENERAL: He appeared to be well developed, well nourished, in no acute distress. He was overweight. Skin color is normal. Skin is warm, dry. Lymph nodes are not enlarged. Head, ears, eyes, nose, mouth, and throat are normal. Neck veins are not distended. Thyroid is not enlarged. Chest is clear. Cardiac exam is normal. The abdomen is protuberant and soft. EXTREMITIES: Normal. NEUROLOGIC: He is intact. IMPRESSION: 1. Large ventral hernia. 2. Colostomy. PLAN: Patient is doing well and was cleared for surgery. MMODL / IJN: [id number] /
--- NOTE | 2017-11-19 13:24 | P.PN ---
Progress Note - Text Progress Note Date: 11/19/17 Postoperative day #1 status post partial colectomy with incisional hernia repair , epidural catheter placed for postoperative analgesia, patient doing well epidural site okay, patient currently on combination of epidural infusion solution of bupivacaine 0.0625% and Dilaudid 20 g per mL the infusion rate at 10 ml per hour , patient had no motor deficit epidural site okay , vital signs stable ,VAS 2/10 at rest , he is getting morphine 2 mg every 2 hours for breakthrough pain Assessment and plan=. post operative day # 1 patient doing well ,pain controlled , there is no anesthesia related complications
[2017-11-19] MEDS: MORPHINE SULFATE 4 MG/ML SYRINGE IVP PRN (14:18)
[2017-11-19] MEDS: BUPIVACAINE (PF) 0.5% 31.3 ML, HYDROMORPHONE (PF) 5 MG in SODIUM CHLORIDE 0.9% 218 ML EPIDURAL PRN (15:29)
[2017-11-19] MEDS: ALBUTEROL NEBULIZED 2.5 MG/3 ML INHALATION PRN (18:58)
[2017-11-19 19:21] LABS: Amorphous Sediment,Urine Rare /hpf; Appearance,Urine Turbid (Clear); Bilirubin,Urine Negative (Negative); Blood,Urine Small (Negative); Color,Urine Yellow; Glucose,Urine (UA) Negative (Negative); Ketones,Urine Negative (Negative); Leukocyte Esterase,Urine Small (Negative); Nitrite,Urine Negative (Negative); Protein,Urine Negative (Negative); RBC,Urine 15 /hpf (0-5); Specific Gravity,Urine 1.022 (1.001-1.035); Uric Acid Crystals,Urine Few /hpf; Urobilinogen,Urine <2.0 mg/dL (<2.0); WBC,Urine 17 /hpf (0-5)
[2017-11-19 22:47] LABS: Glucose,Whole Blood 165 mg/dL (75-99)
[2017-11-19] MEDS ORDERED: ACETAMINOPHEN TAB 325 MG TAB PO PRN (23:05)
--- NOTE | 2017-11-19 23:44 | XR ---
EXAMINATION TYPE: XR chest 1V portable DATE OF EXAM: 11/19/2017 COMPARISON: 10/19/2017 HISTORY: Short of breath TECHNIQUE: Single frontal view of the chest is obtained. FINDINGS: There is coarsening of interstitial markings. There is no pulmonary consolidation. There i s no gross heart failure. I see no pleural effusion. IMPRESSION: Inspiration is decreased compared to old exam. There is probably some pulmonary intersti tial fibrosis. No gross heart failure.
--- NOTE | 2017-11-20 04:14 | CONS ---
CONSULTATION DATE OF SERVICE: 11/19/2017. REASON FOR CONSULTATION: Leukocytosis. HISTORY OF PRESENT ILLNESS: The patient is a 52-year-old male who was electively admitted to the hospital yesterday on the 18 November 2017 for a reversal of colostomy which the patient has for a ruptured diverticulitis. The patient was taken to the OR. He was noticed to have an incarcerated incisional hernia, incarcerated parastomal hernia. The patient is status post repair of both of these hernias, partial colectomy, omentectomy, takedown splenic flexure. The patient noticed to have a low-grade fever of 100 with a white count elevated of 19.7. The patient was started on Zosyn, admitted to the hospital and Infectious Disease was consulted this morning for further recommendations regarding antibiotic therapy. The patient has been complaining of some incisional pain after his surgery, which is more of a sharp in nature 5 to 6/10, and no radiation, though the pain is improving with the pain medication he has been receiving. Denies having any nausea, no vomiting and did not have any output in his colostomy bag. The patient denies having any chest pain or shortness of breath or any cough. REVIEW OF SYSTEMS: Constitutional: Positive for weakness with low-grade fever as mentioned above. No fever prior to presentation to hospital. Eyes no complaint. ENT no complaint. Respiratory: Mild shortness of breath as mentioned above. Cardiovascular: No complaint. Genitourinary: No complaint. Gastrointestinal: as per HPI. Musculoskeletal no complaint. Integumentary: No complaint. Psychological no complaint. Endocrine no complaint. Neurologic no complaint. PAST MEDICAL HISTORY: Significant for hypertension, GERD, COPD, pneumonia, sleep apnea, hypothyroidism, diverticulitis, perforated colon, colonoscopy. PAST SURGICAL HISTORY: Colostomy for ruptured diverticulitis in 2010 and wrist surgery. SOCIAL HISTORY: The patient is currently an every day smoker, smoking since age of 8. Did admit to marijuana use. FAMILY HISTORY: Mother and sibling with history of cancer, though type not documented. ALLERGIES TO: DITROPAN AND BEE POLLEN. MEDICATIONS: Include the patient currently on: 1. Ventolin. 2. Xanax. 3. Cepacol lozenges. 4. Symbicort. 5. Wellbutrin XR. 6. Pepcid. 7. Mucinex. 8. Synthroid. 9. Restoril. 10.Morphine sulfate. 11.Narcan. 12.Nicotine patch. 13.Protonix. 14.Zosyn at 3.375 g q.8 hours. EXAMINATION: Blood pressure is 142/86 with a pulse of 96, temperature 97.5. He is 94% on 4 L nasal cannula. General description is a middle aged male, up in the chair in no distress. HEENT: Shows no pallor or scleral icterus. Oral mucous membranes dry. Neck: Trachea central. No thyromegaly. Lungs unlabored breathing, clear to auscultation with crackles. Heart: S1-S2 regular rate and rhythm. ABDOMEN: Soft, mildly tender. The incision is intact. Colostomy with no stones. Genitourinary: Banda catheter with slightly pink colored urine. EXTREMITIES: No edema of feet. Skin examination: No rashes or mass palpable. Neurological: Patient is awake, alert, oriented x3. Mood and affect normal. LABS: Hemoglobin 15.5 with white count 19.7, BUN of 22, creatinine 0.96. Electrolytes have been normal. Urine did show some small blood. No culture has been done. DIAGNOSTIC IMPRESSION AND PLAN: Patient with leukocytosis source is likely incarcerated incisional as well as the parastomal hernia status post repair. However, both of them with likely organism did cover with enteric gram-negative both aerobes and anaerobes in a patient with no other clinical focus of infection. His lungs were clear to auscultation. No evidence of any cellulitis or joint swelling. Did have a Banda catheter in surgery with mostly mild hematuria whether than any infected looking urine. PLAN: 1. Zosyn 3.375 g IV piggyback q8 hours should provide adequate coverage for enteric gram-negative pathogen both aerobes and anaerobes. 2. We will monitor his clinical condition and white count closely. If a jump in his white count or any fever to re-culture him before adjusting antibiotics further. 3. The Banda catheter should be discontinued to decrease risk of a catheter induced urinary tract infection. 4. We will follow up on the clinical condition and culture to further adjust medication if needed. Thank you for this consultation, will follow this patient along with you. MMODL / IJN: [id number] /
[2017-11-20] MEDS: LEVOTHYROXINE 50 MCG TAB PO SCH (05:22)
[2017-11-20 07:09] LABS: Basophils % (A) 0 %; Eosinophils # (A) 0.1 k/uL (0-0.7); Eosinophils % (A) 0 %; HCT 38.5 % (39.0-53.0); Lymphocytes # (A) 1.2 k/uL (1.0-4.8); Lymphocytes % (A) 7 %; MCH 32.5 pg (25.0-35.0); MCHC 34.5 g/dL (31.0-37.0); Mean Platelet Volume 7.4; Monocytes # (A) 0.9 k/uL (0-1.0); Monocytes % (A) 5 %; Neutrophils # (A) 14.2 k/uL (1.3-7.7); Neutrophils % (A) 86 %; Platelet Count 211 k/uL (150-450); RDW 13.4 % (11.5-15.5); WBC 16.5 k/uL (3.8-10.6)
[2017-11-20 07:33] LABS: HGB 13.3 gm/dL (13.0-17.5)
[2017-11-20] MEDS: ALVIMOPAN 12 MG CAPSULE PO SCH ×2 (08:44→22:10)
[2017-11-20] MEDS: buPROPion XL 150 MG TAB.ER.24H PO SCH (08:44)
[2017-11-20] MEDS: PANTOPRAZOLE 40 MG TABLET PO SCH (08:44)
[2017-11-20] MEDS: FAMOTIDINE 20 MG/2 ML VIAL IV SCH ×2 (08:44→22:10)
[2017-11-20] MEDS: guaiFENesin 600 MG TABLET.ER PO SCH ×2 (08:44→22:10)
[2017-11-20] MEDS: LISINOPRIL 20 MG TAB PO SCH (08:44)
[2017-11-20] MEDS: NICOTINE 14MG/24HR PATCH TRANSDERM SCH (08:44)
[2017-11-20] MEDS: PIPERACILLIN-TAZOBACTAM 3.375 GM in DEXTROSE/WATER 1 50ML.BAG IVPB SCH ×2 (08:44→17:33)
[2017-11-20] MEDS: SYMBICORT 160-4.5 MCG INHALER INHALATION SCH ×2 (09:07→20:01)
--- NOTE | 2017-11-20 09:14 | P.PN ---
Progress Note - Text 11/20 725am 52-year-old male status post an exploratory lap by Dr fairchild. Postop day #2, epidural solution running at 9 mL an hour with a VAS of 2 at rest. No motor or sensory deficits noted. Continue epidural infusion
[2017-11-20] MEDS: D5-0.45% NACL WITH KCL 20MEQ/L 1,000 ML IV SCH ×4 (09:47→14:26)
--- NOTE | 2017-11-20 12:01 | P.PN ---
Subjective Progress Note Date: 11/20/17 52-year-old being seen and examined sitting up on the edge of the bed this morning nursing reports patient had an episode last evening elevated blood pressure with hypoxia. Currently has epidural in place for pain control. Patient states analgesics effective for pain control Banda catheter orange colored urine noted currently on 2 L sats are 91% afebrile white count 16.5. Patients being followed by pulmonary and infectious disease. Patient states is belching but not passing any stool through the ostomy. postop November 18 repair of incarcerated incisional and parastomal hernia partial colectomy with colostomy Objective - Vital Signs Vital signs: Vital Signs Temp 97.5 F L 11/20/17 08:38 Pulse 93 11/20/17 08:38 Resp 16 11/20/17 08:38 BP 128/77 11/20/17 08:38 Pulse Ox 86 L 11/20/17 08:38 Intake & Output 11/19/17 11/20/17 11/20/17 18:59 06:59 18:59 Intake Total 2009 480 240 Output Total 215 930 Balance 1795 -450 240 Weight 101.151 kg Intake: Intake, IV Titration 1050 Amount D5-0.45% NaCl with KCl 1000 20Meq/l 1,000 ml @ 125 mls/hr IV .Q8H JAKE Rx#: [id number] Piperacillin-Tazobactam 3 50 .375 gm In Dextrose/Water 1 50ml.bag @ 12.5 mls/hr IVPB Q8HR JAKE Rx#: [id number] Oral 960 480 240 Output: Drainage 65 30 Abdomen 65 30 Urine 150 900 Other: Voiding Method Indwelling Catheter Indwelling Catheter Indwelling Catheter - Exam Physical exam 52-year-old male sitting up edge bed talkative cooperative Lungs adequate air movement bilaterally on 3 L nasal cannula will use IS with coaching can achieve 1500 Heart S1-S2 audible and regular no murmur denying chest Abdomen soft surgical tenderness appropriate mildly distended bowel tones present belching no stool LUPE drain right lower quadrant serous drainage in the bulb few hypoactive bowel tones indwelling Banda catheter in place with an orange color urine tolerating a diet with no nausea no vomiting Extremities no edema noted to the bilateral lower - Labs CBC & Chem 7: 11/20/17 06:27 11/18/17 18:27 Labs: Abnormal Lab Results - Last 24 Hours (Table) 11/19/17 11/19/17 11/20/17 Range/Units 18:54 22:45 06:27 WBC 16.5 H (3.8-10.6) k/uL RBC 4.10 L (4.30-5.90) m/uL Hct 38.5 L (39.0-53.0) % Neutrophils # 14.2 H (1.3-7.7) k/uL POC Glucose (mg/dL) 165 H (75-99) mg/dL Urine Blood Small H (Negative) Ur Leukocyte Esterase Small H (Negative) Urine RBC 15 H (0-5) /hpf Urine WBC 17 H (0-5) /hpf Uric Acid Crystals Few H (None) /hpf Amorphous Sediment Rare H (None) /hpf Microbiology - Last 24 Hours (Table) 11/19/17 18:54 Urine Culture - Preliminary Urine,Catheterized Assessment and Plan Assessment: Impression 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 presented to electively undergo reversal of colostomy History of parastomal hernia History of sleep apnea with the use of CPAP therapy History of diverticulitis perforated colon 2010 Postop November 18 lysis of adhesion, repair of incarcerated incisional and parastomal hernia, partial colectomy, omentectomy not able to reverse ostomy Leukocytosis infectious disease following Plan Increase activity Advance diet to full liquid Continue postop surgical course Hep-Lock IV PT OT eval May benefit from subacute rehab Pain control IV fluid for hydration DVT and GI prophylaxis incentive spirometer every 1 hour while awake Further surgical recommendations pending will follow Progress note dictated for Dr. Ankur weiss on behalf followed Dr. fairchild The above impression and plan of care have been discussed and directed by signing physician. Debbie Naik nurse practitioner acting as scribe for signing physician.
--- NOTE | 2017-11-20 12:53 | P.PN ---
<Debbie Naik M - Last Filed: 11/20/17 12:50> Subjective Progress Note Date: 11/19/17 52-year-old seen and examined at bedside this morning. Patient states feeling sleepy this morning did not sleep well last night. Patient is postop November 18 repair of incarcerated incisional and parastomal hernia partial colectomy. Patient has an epidural per anesthesia for pain control. An ostomy left lower quadrant stoma pink no stool in the ostomy bag. Reports no nausea vomiting. States his belching no stool Objective - Vital Signs Vital signs: Vital Signs Temp 97.5 F L 11/20/17 08:38 Pulse 93 11/20/17 08:38 Resp 16 11/20/17 08:38 BP 128/77 11/20/17 08:38 Pulse Ox 86 L 11/20/17 08:38 Intake & Output 11/19/17 11/20/17 11/20/17 18:59 06:59 18:59 Intake Total 2009 480 240 Output Total 215 930 Balance 1795 -450 240 Weight 101.151 kg Intake: Intake, IV Titration 1050 Amount D5-0.45% NaCl with KCl 1000 20Meq/l 1,000 ml @ 125 mls/hr IV .Q8H [facility] Rx#: [id number] Piperacillin-Tazobactam 3 50 .375 gm In Dextrose/Water 1 50ml.bag @ 12.5 mls/hr IVPB Q8HR [facility] Rx#: [id number] Oral 960 480 240 Output: Drainage 65 30 Abdomen 65 30 Urine 150 900 Other: Voiding Method Indwelling Catheter Indwelling Catheter Indwelling Catheter - Exam Physical exam 52-year-old male sitting up edge bed talkative cooperative Lungs adequate air movement bilaterally on 3 L nasal cannula will use IS with coaching can achieve 1500 Heart S1-S2 audible and regular no murmur denying chest Abdomen soft surgical tenderness appropriate mildly distended bowel tones present belching no stool LUPE drain right lower quadrant serous drainage in the bulb few hypoactive bowel tones indwelling Banda catheter in place with an orange color urine tolerating a diet with no nausea no vomiting Extremities no edema noted to the bilateral lower - Labs CBC & Chem 7: 11/20/17 06:27 11/18/17 18:27 Labs: Abnormal Lab Results - Last 24 Hours (Table) 11/19/17 11/19/17 11/20/17 Range/Units 18:54 22:45 06:27 WBC 16.5 H (3.8-10.6) k/uL RBC 4.10 L (4.30-5.90) m/uL Hct 38.5 L (39.0-53.0) % Neutrophils # 14.2 H (1.3-7.7) k/uL POC Glucose (mg/dL) 165 H (75-99) mg/dL Urine Blood Small H (Negative) Ur Leukocyte Esterase Small H (Negative) Urine RBC 15 H (0-5) /hpf Urine WBC 17 H (0-5) /hpf Uric Acid Crystals Few H (None) /hpf Amorphous Sediment Rare H (None) /hpf Microbiology - Last 24 Hours (Table) 11/19/17 18:54 Urine Culture - Preliminary Urine,Catheterized Assessment and Plan Assessment: Impression 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 presented to electively undergo reversal of colostomy History of parastomal hernia History of sleep apnea with the use of CPAP therapy History of diverticulitis perforated colon 2010 Postop November 18 lysis of adhesion, repair of incarcerated incisional and parastomal hernia, partial colectomy, omentectomy not able to reverse ostomy Leukocytosis infectious disease following Plan Increase activity Advance diet to full liquid Continue postop surgical course Hep-Lock IV PT OT eval May benefit from subacute rehab Pain control IV fluid for hydration DVT and GI prophylaxis incentive spirometer every 1 hour while awake Further surgical recommendations pending will follow Progress note dictated for Dr. Ankur weiss on behalf followed Dr. fairchild The above impression and plan of care have been discussed and directed by signing physician. Debbie Naik nurse practitioner acting as scribe for signing physician. <Bridger Hunt - Last Filed: 11/20/17 17:25> Objective - Vital Signs Vital signs: Vital Signs Temp 97.7 F 11/20/17 15:00 Pulse 100 11/20/17 15:00 Resp 18 11/20/17 15:00 BP 139/76 11/20/17 15:00 Pulse Ox 92 L 11/20/17 15:00 Intake & Output 11/19/17 11/20/17 11/20/17 18:59 06:59 18:59 Intake Total 2009 480 798.333 Output Total 215 930 20 Balance 1795 -450 778.333 Weight 101.151 kg Intake: Intake, IV Titration 1050 440.333 Amount Bupivacaine (Pf) 0.5% 31. 240.333 3 ml Hydromorphone (Pf) 5 mg In Sodium Chloride 0. 9% 218 ml @ Per Protocol EPIDURAL .Q0M [facility] Rx#: [id number] D5-0.45% NaCl with KCl 1000 150 20Meq/l 1,000 ml @ 75 mls /hr IV .[id number] [facility] Rx#: [id number] Piperacillin-Tazobactam 3 50 50 .375 gm In Dextrose/Water 1 50ml.bag @ 12.5 mls/hr IVPB Q8HR [facility] Rx#: [id number] Oral 960 480 358 Output: Drainage 65 30 20 Abdomen 65 30 20 Urine 150 900 Other: Voiding Method Indwelling Catheter Indwelling Catheter Indwelling Catheter - Labs CBC & Chem 7: 11/20/17 06:27 11/18/17 18:27 Labs: Abnormal Lab Results - Last 24 Hours (Table) 11/19/17 11/19/17 11/20/17 Range/Units 18:54 22:45 06:27 WBC 16.5 H (3.8-10.6) k/uL RBC 4.10 L (4.30-5.90) m/uL Hct 38.5 L (39.0-53.0) % Neutrophils # 14.2 H (1.3-7.7) k/uL POC Glucose (mg/dL) 165 H (75-99) mg/dL Urine Blood Small H (Negative) Ur Leukocyte Esterase Small H (Negative) Urine RBC 15 H (0-5) /hpf Urine WBC 17 H (0-5) /hpf Uric Acid Crystals Few H (None) /hpf Amorphous Sediment Rare H (None) /hpf Microbiology - Last 24 Hours (Table) 11/20/17 00:00 Gram Stain - Preliminary Sputum 11/19/17 18:54 Urine Culture - Preliminary Urine,Catheterized Assessment and Plan Assessment: As above. Patient states he is doing better. He was ambulating in the hallways today. No ostomy function. Mild abdominal bloating and distention. Abdominal examination reveals mild distention and mild tenderness, some ecchymosis between the old ostomy incision and the midline incision.
[2017-11-20] MEDS: ALBUTEROL NEBULIZED 2.5 MG/3 ML INHALATION PRN (13:55)
[2017-11-20] MEDS: BUPIVACAINE (PF) 0.5% 31.3 ML, HYDROMORPHONE (PF) 5 MG in SODIUM CHLORIDE 0.9% 218 ML EPIDURAL PRN (15:31)
[2017-11-20] MEDS: HEPARIN SODIUM,PORCINE 5,000 UNIT/ML 1 ML VIAL SQ SCH (15:34)
--- NOTE | 2017-11-20 16:30 | PN ---
PROGRESS NOTE DATE OF SERVICE: 11/20/2017 REASON FOR FOLLOWUP: Incarcerated parastomal incisional hernia with possibility of secondary peritonitis and leukocytosis. INTERVAL HISTORY: The patient is afebrile. He seems to be breathing comfortably. His abdominal pain is currently controlled with pain medication. No nausea, no vomiting. Did not have any reported output in his colostomy bag. PHYSICAL EXAMINATION: Blood pressure is 139/76 with a pulse of 100, temperature 97.7. He is 92% on 2 L nasal cannula. General description is a middle-aged male lying in bed in no distress. RESPIRATORY SYSTEM: Unlabored breathing. Clear to auscultation anteriorly. HEART: S1, S2. Regular rate and rhythm. ABDOMEN: Soft, minimally distended. No guarding or rigidity. EXTREMITIES: No edema of the feet. LABS: Hemoglobin 13.3, white count 16.5. DIAGNOSTIC IMPRESSION AND PLAN: Patient with leukocytosis in a patient who did have an incarcerated parastomal incisional hernia, status post open repair of the same and colostomy. Keep the patient on Zosyn, to which his white count responded, adjusting it further based on his clinical response. Continue supportive care. Family present at bedside. Their questions were answered. MMODL / IJN: [id number] /
--- NOTE | 2017-11-20 16:54 | P.PN ---
Subjective Progress Note Date: 11/20/17 Principal diagnosis: This is a very pleasant 52-year-old gentleman who follows with Dr. Vyas as his primary care physician. He has history of hypertension, gastroesophageal reflux disease, hypothyroidism. He has chronic obstructive pulmonary disease and chronic and ongoing tobacco dependence. He utilizes Symbicort and albuterol. He has a baseline FEV1 of 55% of predicted. He also has obstructive sleep apnea and follows with Dr. Fritz in our office for the same. His last sleep titration was in October 2014. He has severe symptomatic obstructive sleep apnea with an AHI of 130. His BiPAP pressures are 18/14 cm of water. He utilizes Al FX small size mask with a chinstrap. He also has severe nocturnal oxygen desaturation and chronic hypersomnia with Paris score of 22. He also has a history of perforated colon with subsequent colectomy and colostomy in 2010. He has multiple abdominal incisional hernias as well as parastomal hernia. He did obtain preoperative clearance from Dr. Fritz. He presented here yesterday for an elective surgical repair with Dr. Perez. He performed lysis of adhesions, repair of incarcerated incisional hernia, repair of incarcerated parastomal hernia, partial colectomy, omentectomy and takedown of splenic flexure. The patient is seen today in consultation on the surgical floor. He is currently awake and alert in no acute distress. He does have an epidural for pain control with Bupivacaine/ Dilaudid. He did bring his BiPAP machine from home and was wearing it last night and into this morning. He denies any shortness of breath, cough or congestion. He does feel there is some thick phlegm in his throat. We will add Mucinex. He is maintaining good O2 saturations in the 90s on 3 L/m per nasal cannula. He's been afebrile. His stoma is pink and viable. There is minimal output. Surgical dressing is dry and intact. The patient is seen today 11/20/2017 in follow-up in the surgical floor. He is awake and alert in no acute distress. He did have episode of anxiety last evening. He is doing better today. He is utilizing his BiPAP pressures of 18/ 14 cm of water throughout the evening and while napping. His pain is well controlled. Epidural remains in place. He is working well at the incentive spirometry pulling 1500 mls. He is maintaining O2 saturations in the 90s on 2 L /m per nasal cannula. He is afebrile. Hemodynamically stable. Sputum and urine cultures are pending. Currently on Zosyn. White count improved currently 16.5. Hemoglobin 13.3. His abdominal dressing is dry and intact. His stoma is viable although no output. No significant bowel sounds detected. Objective - Vital Signs Vital signs: Vital Signs Temp 97.7 F 11/20/17 15:00 Pulse 100 11/20/17 15:00 Resp 18 11/20/17 15:00 BP 139/76 11/20/17 15:00 Pulse Ox 92 L 11/20/17 15:00 Intake & Output 11/19/17 11/20/17 11/20/17 18:59 06:59 18:59 Intake Total 2009 480 798.333 Output Total 215 930 20 Balance 1795 -450 778.333 Weight 101.151 kg Intake: Intake, IV Titration 1050 440.333 Amount Bupivacaine (Pf) 0.5% 31. 240.333 3 ml Hydromorphone (Pf) 5 mg In Sodium Chloride 0. 9% 218 ml @ Per Protocol EPIDURAL .Q0M PRN Rx#: [id number] D5-0.45% NaCl with KCl 1000 150 20Meq/l 1,000 ml @ 75 mls /hr IV .[id number] [facility] Rx#: [id number] Piperacillin-Tazobactam 3 50 50 .375 gm In Dextrose/Water 1 50ml.bag @ 12.5 mls/hr IVPB Q8HR [facility] Rx#: [id number] Oral 960 480 358 Output: Drainage 65 30 20 Abdomen 65 30 20 Urine 150 900 Other: Voiding Method Indwelling Catheter Indwelling Catheter Indwelling Catheter - Exam GENERAL EXAM: Alert, fairly comfortable in no apparent distress. HEAD: Normocephalic. EYES: Normal reaction of pupils, equal size. NOSE: Clear with pink turbinates. THROAT: There is crowding of the posterior pharynx. No erythema or exudates. NECK: Short. No masses, no JVD. CHEST: No chest wall deformity. LUNGS: Equal air entry with no crackles, wheeze, rhonchi or dullness. CVS: S1 and S2 normal with no audible murmur, regular rhythm. ABDOMEN: Stoma is pink and viable, dressings dry and intact. SPINE: No scoliosis or deformity SKIN: No rashes CENTRAL NERVOUS SYSTEM: No focal deficits, tone is normal in all 4 extremities. EXTREMITIES: There is no peripheral edema. No clubbing, no cyanosis. Peripheral pulses are intact. - Labs CBC & Chem 7: 11/20/17 06:27 11/18/17 18:27 Labs: Abnormal Lab Results - Last 24 Hours (Table) 11/19/17 11/19/17 11/20/17 Range/Units 18:54 22:45 06:27 WBC 16.5 H (3.8-10.6) k/uL RBC 4.10 L (4.30-5.90) m/uL Hct 38.5 L (39.0-53.0) % Neutrophils # 14.2 H (1.3-7.7) k/uL POC Glucose (mg/dL) 165 H (75-99) mg/dL Urine Blood Small H (Negative) Ur Leukocyte Esterase Small H (Negative) Urine RBC 15 H (0-5) /hpf Urine WBC 17 H (0-5) /hpf Uric Acid Crystals Few H (None) /hpf Amorphous Sediment Rare H (None) /hpf Microbiology - Last 24 Hours (Table) 11/20/17 00:00 Gram Stain - Preliminary Sputum 11/19/17 18:54 Urine Culture - Preliminary Urine,Catheterized Assessment and Plan Assessment: Impression: #1 Incarcerated incisional and parastomal hernias with previous history of perforated diverticulitis and colostomy placement in 2010. Status post lysis of adhesions, repair of incarcerated incisional hernia, repair of incarcerated parastomal hernia, partial colectomy, omentectomy, takedown of splenic flexure. Postoperative day #2. #2 Severe obstructive sleep apnea with an AHI of 130 along with nocturnal oxygen desaturations utilizing BiPAP in the outpatient setting 18/14 cm of water. #3 Morbid obesity. #4 Chronic hypersomnia with Paris score of 22. #5 Chronic and ongoing tobacco dependence. #6 Chronic obstructive pulmonary disease with an FEV1 value 55% of predicted. #7 Seasonal ALLERGIC rhinitis. #8 Anxiety. Plan: The patient was seen and evaluated by Dr. Fritz. He is receiving Xanax for his anxiety. He'll continue to utilize his BiPAP during the evenings and throughout the day while napping. He is again encouraged regarding increased use the incentive spirometer and cough and deep breathing exercises. Continue Symbicort and albuterol. Mucinex. He is on antibiotics in the form of Zosyn. Continue Protonix for GI prophylaxis. He is again encouraged regarding the importance of complete smoking cessation. NicoDerm patch applied. We will increase his activity as tolerated. We'll continue to follow and make further recommendations based on his clinical status. I, the cosigning physician, performed a history & physical examination of the patient. Lungs sounds are clear. Maintaining good O2 saturations in the 90s on 2 L/m per nasal cannula. I discussed the assessment and plan of care with my nurse practitioner, Frances Melissa. I attest to the above note as dictated by her.
[2017-11-21] MEDS: HEPARIN SODIUM,PORCINE 5,000 UNIT/ML 1 ML VIAL SQ SCH ×3 (00:47→15:53)
[2017-11-21] MEDS: PIPERACILLIN-TAZOBACTAM 3.375 GM in DEXTROSE/WATER 1 50ML.BAG IVPB SCH ×3 (00:47→15:48)
[2017-11-21] MEDS: LEVOTHYROXINE 50 MCG TAB PO SCH (06:13)
[2017-11-21 06:54] LABS: Basophils % (A) 0 %; Eosinophils # (A) 0.3 k/uL (0-0.7); Eosinophils % (A) 2 %; HCT 37.6 % (39.0-53.0); Lymphocytes # (A) 1.4 k/uL (1.0-4.8); Lymphocytes % (A) 11 %; MCH 32.5 pg (25.0-35.0); MCHC 34.6 g/dL (31.0-37.0); MCV 93.9 fL (80.0-100.0); Monocytes # (A) 0.9 k/uL (0-1.0); Monocytes % (A) 7 %; Neutrophils # (A) 10.5 k/uL (1.3-7.7); Neutrophils % (A) 79 %; Platelet Count 204 k/uL (150-450); RDW 13.2 % (11.5-15.5); WBC 13.3 k/uL (3.8-10.6)
[2017-11-21] MEDS: ALBUTEROL NEBULIZED 2.5 MG/3 ML INHALATION PRN (07:06)
[2017-11-21 07:09] LABS: ALT 51 U/L (21-72); AST 88 U/L (17-59); Albumin 3.3 g/dL (3.5-5.0); Alkaline Phosphatase 106 U/L (38-126); Anion Gap 11 mmol/L; Blood Urea Nitrogen 12 mg/dL (9-20); Calcium 8.7 mg/dL (8.4-10.2); Carbon Dioxide 24 mmol/L (22-30); Chloride 101 mmol/L (98-107); Glucose 116 mg/dL (74-99); Potassium 4.5 mmol/L (3.5-5.1); Sodium 136 mmol/L (137-145); Total Bilirubin 2.1 mg/dL (0.2-1.3); Total Protein 5.8 g/dL (6.3-8.2)
[2017-11-21] MEDS: buPROPion XL 150 MG TAB.ER.24H PO SCH (08:05)
[2017-11-21] MEDS: LISINOPRIL 20 MG TAB PO SCH (08:05)
[2017-11-21] MEDS: guaiFENesin 600 MG TABLET.ER PO SCH ×2 (08:05→21:50)
[2017-11-21] MEDS: ALVIMOPAN 12 MG CAPSULE PO SCH ×2 (08:06→21:50)
[2017-11-21] MEDS: FAMOTIDINE 20 MG/2 ML VIAL IV SCH ×2 (08:06→21:50)
[2017-11-21] MEDS: NICOTINE 14MG/24HR PATCH TRANSDERM SCH (08:07)
[2017-11-21] MEDS: PANTOPRAZOLE 40 MG TABLET PO SCH (08:08)
[2017-11-21] MEDS: D5-0.45% NACL WITH KCL 20MEQ/L 1,000 ML IV SCH ×3 (09:34→21:42)
[2017-11-21] MEDS: SYMBICORT 160-4.5 MCG INHALER INHALATION SCH ×2 (11:02→20:45)
--- NOTE | 2017-11-21 12:39 | P.PN ---
Subjective Progress Note Date: 11/21/17 Patient is postop November 18 repair of an incarcerated incisional hernia parastomal hernia with a partial colectomy. The patient has an epidural catheter for pain control. He has an ostomy in the left lower quadrant, stoma is pink and no ostomy output at this time. The patient is doing well without complaints. Objective - Vital Signs Vital signs: Vital Signs Temp 98.1 F 11/21/17 07:00 Pulse 89 11/21/17 07:00 Resp 22 11/21/17 08:00 BP 119/72 11/21/17 07:00 Pulse Ox 93 L 11/21/17 07:00 Intake & Output 11/20/17 11/21/17 11/21/17 18:59 06:59 18:59 Intake Total 798.333 180 200 Output Total 1020 850 Balance -221.667 -670 200 Intake: Intake, IV Titration 440.333 Amount Bupivacaine (Pf) 0.5% 31. 240.333 3 ml Hydromorphone (Pf) 5 mg In Sodium Chloride 0. 9% 218 ml @ Per Protocol EPIDURAL .Q0M [facility] Rx#: [id number] D5-0.45% NaCl with KCl 150 20Meq/l 1,000 ml @ 75 mls /hr IV .[id number] [facility] Rx#: [id number] Piperacillin-Tazobactam 3 50 .375 gm In Dextrose/Water 1 50ml.bag @ 12.5 mls/hr IVPB Q8HR [facility] Rx#: [id number] Oral 358 180 200 Output: Drainage 20 Abdomen 20 Urine 1000 850 Other: Voiding Method Indwelling Catheter Indwelling Catheter - Constitutional General appearance: Present: obese - Respiratory Details: Decreased breath sounds at bases - Cardiovascular Rhythm: regular Heart sounds: normal: S1, S2 - Gastrointestinal Gastrointestinal Comment(s): Ostomy left lower quadrant pain, no stool in bag General gastrointestinal: Present: decreased bowel sounds, soft - Psychiatric Psychiatric: Present: A&O x's 3, appropriate affect, intact judgment & insight - Labs CBC & Chem 7: 11/21/17 06:30 11/21/17 06:30 Labs: Abnormal Lab Results - Last 24 Hours (Table) 11/21/17 11/21/17 Range/Units 06:30 06:30 WBC 13.3 H (3.8-10.6) k/uL RBC 4.00 L (4.30-5.90) m/uL Hct 37.6 L (39.0-53.0) % Neutrophils # 10.5 H (1.3-7.7) k/uL Sodium 136 L (137-145) mmol/L Glucose 116 H (74-99) mg/dL Total Bilirubin 2.1 H (0.2-1.3) mg/dL AST 88 H (17-59) U/L Total Protein 5.8 L (6.3-8.2) g/dL Albumin 3.3 L (3.5-5.0) g/dL Microbiology - Last 24 Hours (Table) 11/19/17 23:37 Blood Culture - Preliminary Blood No Growth after 24 hours 11/19/17 23:24 Blood Culture - Preliminary Blood No Growth after 24 hours 11/19/17 18:54 Urine Culture - Final Urine,Catheterized 11/20/17 00:00 Gram Stain - Preliminary Sputum Assessment and Plan Assessment: Impression/plan: 1. Repair of ventral/parastomal hernia with new placement of ostomy 2. History of sleep apnea with use of CPAP 3. Leukocytosis improving Plan: 1. Out of bed with assistance 2. Diet full liquids 3. PT OT evaluation 4. DVT and GI prophylaxis 5. Incentive spirometry every hour while awake
--- NOTE | 2017-11-21 13:01 | PN ---
PROGRESS NOTE DATE OF SERVICE: 05/23/2018 CHIEF COMPLAINT: Status post ventral herniorrhaphy. HISTORY OF PRESENT ILLNESS: This gentleman is having some discomfort, but he is tolerating it fairly well. He has had no vomiting, fever, chills, etc. PHYSICAL EXAMINATION: Color is good. Chest is clear. Vital signs are normal and he is afebrile. Colostomy is still present and was not able to be removed. IMPRESSION: Status post left large ventral herniorrhaphy and prolapse. PLAN: Continue to follow with Surgery. MMODL / IJN: [id number] /
--- NOTE | 2017-11-21 13:01 | PN ---
PROGRESS NOTE CHIEF COMPLAINT: Status post ventral herniorrhaphy. HISTORY OF PRESENT ILLNESS: This gentleman is stable. He is doing fairly well. He has had no vomiting and vital signs normal. PHYSICAL EXAM: Chest is clear. Cardiac exam demonstrates sinus rhythm and dressings are dry and bowel sounds are present. IMPRESSION: Status post ventral herniorrhaphy. PLAN: Follow with surgery. MMODL / IJN: [id number] /
[2017-11-21] MEDS: MORPHINE SULFATE 4 MG/ML SYRINGE IVP PRN (13:31)
--- NOTE | 2017-11-21 15:34 | P.PN ---
Subjective Progress Note Date: 11/21/17 Principal diagnosis: Incarcerated incisional and parastomal hernia This is a very pleasant 52-year-old gentleman who follows with Dr. Vyas as his primary care physician. He has history of hypertension, gastroesophageal reflux disease, hypothyroidism. He has chronic obstructive pulmonary disease and chronic and ongoing tobacco dependence. He utilizes Symbicort and albuterol. He has a baseline FEV1 of 55% of predicted. He also has obstructive sleep apnea and follows with Dr. Fritz in our office for the same. His last sleep titration was in October 2014. He has severe symptomatic obstructive sleep apnea with an AHI of 130. His BiPAP pressures are 18/14 cm of water. He utilizes Al FX small size mask with a chinstrap. He also has severe nocturnal oxygen desaturation and chronic hypersomnia with [place] score of 22. He also has a history of perforated colon with subsequent colectomy and colostomy in 2010. He has multiple abdominal incisional hernias as well as parastomal hernia. He did obtain preoperative clearance from Dr. Fritz. He presented here yesterday for an elective surgical repair with Dr. Perez. He performed lysis of adhesions, repair of incarcerated incisional hernia, repair of incarcerated parastomal hernia, partial colectomy, omentectomy and takedown of splenic flexure. The patient is seen today in consultation on the surgical floor. He is currently awake and alert in no acute distress. He does have an epidural for pain control with Bupivacaine/ Dilaudid. He did bring his BiPAP machine from home and was wearing it last night and into this morning. He denies any shortness of breath, cough or congestion. He does feel there is some thick phlegm in his throat. We will add Mucinex. He is maintaining good O2 saturations in the 90s on 3 L/m per nasal cannula. He's been afebrile. His stoma is pink and viable. There is minimal output. Surgical dressing is dry and intact. The patient is seen today 11/20/2017 in follow-up in the surgical floor. He is awake and alert in no acute distress. He did have episode of anxiety last evening. He is doing better today. He is utilizing his BiPAP pressures of 18/ 14 cm of water throughout the evening and while napping. His pain is well controlled. Epidural remains in place. He is working well at the incentive spirometry pulling 1500 mls. He is maintaining O2 saturations in the 90s on 2 L /m per nasal cannula. He is afebrile. Hemodynamically stable. Sputum and urine cultures are pending. Currently on Zosyn. White count improved currently 16.5. Hemoglobin 13.3. His abdominal dressing is dry and intact. His stoma is viable although no output. No significant bowel sounds detected. The patient is seen again today 11/21/2017 in follow-up in the surgical floor. He is currently sitting up in a chair at the bedside. He is awake and alert in no acute distress. He denies any worsening shortness of breath, cough or congestion. His pain is well controlled. He is working well of the incentive spirometer. He is maintaining good O2 saturations in the high 90s on room air. He is afebrile. Hemodynamically stable. Blood culture reveals no growth to date. White count 13.3. Hemoglobin 13.0. Creatinine 0.81. Stoma is pink. There is a small amount of stool and gas noted. Objective - Vital Signs Vital signs: Vital Signs Temp 98.2 F 11/21/17 15:00 Pulse 97 11/21/17 15:00 Resp 16 11/21/17 15:00 BP 151/90 11/21/17 15:00 Pulse Ox 97 11/21/17 15:00 Intake & Output 11/20/17 11/21/17 11/21/17 18:59 06:59 18:59 Intake Total 798.333 180 200 Output Total 1020 850 Balance -221.667 -670 200 Intake: Intake, IV Titration 440.333 Amount Bupivacaine (Pf) 0.5% 31. 240.333 3 ml Hydromorphone (Pf) 5 mg In Sodium Chloride 0. 9% 218 ml @ Per Protocol EPIDURAL .Q0M PRN Rx#: [id number] D5-0.45% NaCl with KCl 150 20Meq/l 1,000 ml @ 75 mls /hr IV .[id number] [facility] Rx#: [id number] Piperacillin-Tazobactam 3 50 .375 gm In Dextrose/Water 1 50ml.bag @ 12.5 mls/hr IVPB Q8HR [facility] Rx#: [id number] Oral 358 180 200 Output: Drainage 20 Abdomen 20 Urine 1000 850 Other: Voiding Method Indwelling Catheter Indwelling Catheter - Exam GENERAL EXAM: Alert, comfortable in no apparent distress. HEAD: Normocephalic. EYES: Normal reaction of pupils, equal size. NOSE: Clear with pink turbinates. THROAT: There is crowding of the posterior pharynx. No erythema or exudates. NECK: Short. No masses, no JVD. CHEST: No chest wall deformity. LUNGS: Equal air entry with no crackles, wheeze, rhonchi or dullness. CVS: S1 and S2 normal with no audible murmur, regular rhythm. ABDOMEN: Stoma is pink and viable, dressings dry and intact. LUPE drain in place. SPINE: No scoliosis or deformity SKIN: No rashes CENTRAL NERVOUS SYSTEM: No focal deficits, tone is normal in all 4 extremities. EXTREMITIES: There is no peripheral edema. No clubbing, no cyanosis. Peripheral pulses are intact. - Labs CBC & Chem 7: 11/21/17 06:30 11/21/17 06:30 Labs: Abnormal Lab Results - Last 24 Hours (Table) 11/21/17 11/21/17 Range/Units 06:30 06:30 WBC 13.3 H (3.8-10.6) k/uL RBC 4.00 L (4.30-5.90) m/uL Hct 37.6 L (39.0-53.0) % Neutrophils # 10.5 H (1.3-7.7) k/uL Sodium 136 L (137-145) mmol/L Glucose 116 H (74-99) mg/dL Total Bilirubin 2.1 H (0.2-1.3) mg/dL AST 88 H (17-59) U/L Total Protein 5.8 L (6.3-8.2) g/dL Albumin 3.3 L (3.5-5.0) g/dL Microbiology - Last 24 Hours (Table) 11/19/17 23:37 Blood Culture - Preliminary Blood No Growth after 24 hours 11/19/17 23:24 Blood Culture - Preliminary Blood No Growth after 24 hours 11/19/17 18:54 Urine Culture - Final Urine,Catheterized 11/20/17 00:00 Gram Stain - Preliminary Sputum Assessment and Plan Assessment: Impression: #1 Incarcerated incisional and parastomal hernias with previous history of perforated diverticulitis and colostomy placement in 2011. Status post lysis of adhesions, repair of incarcerated incisional hernia, repair of incarcerated parastomal hernia, partial colectomy, omentectomy, takedown of splenic flexure. Postoperative day #3. #2 Severe obstructive sleep apnea with an AHI of 130 along with nocturnal oxygen desaturations utilizing BiPAP in the outpatient setting 18/14 cm of water. #3 Morbid obesity. #4 Chronic hypersomnia with [place] score of 22. #5 Chronic and ongoing tobacco dependence. #6 Chronic obstructive pulmonary disease with an FEV1 value 55% of predicted. #7 Seasonal ALLERGIC rhinitis. #8 Anxiety. Plan: The patient was seen and evaluated by Dr. Fritz. The patient is improving. He denies any pulmonary complaints. Utilizing the CPAP at night. We will increase his activity as tolerated. He is working well with the incentive spirometer. Continue his current medications. Stoma pink, functioning. We'll continue to follow and make further recommendations based on his clinical status. I, the cosigning physician, performed a history & physical examination of the patient. Lungs sounds are clear. Maintaining good O2 saturations in the 90s on room air. I discussed the assessment and plan of care with my nurse practitioner, Frances Melissa. I attest to the above note as dictated by her.
[2017-11-21] MEDS: BUPIVACAINE (PF) 0.5% 31.3 ML, HYDROMORPHONE (PF) 5 MG in SODIUM CHLORIDE 0.9% 218 ML EPIDURAL PRN (17:06)
[2017-11-22] MEDS: PIPERACILLIN-TAZOBACTAM 3.375 GM in DEXTROSE/WATER 1 50ML.BAG IVPB SCH ×3 (00:41→15:13)
[2017-11-22] MEDS: HEPARIN SODIUM,PORCINE 5,000 UNIT/ML 1 ML VIAL SQ SCH ×3 (00:41→15:14)
[2017-11-22] MEDS: MORPHINE SULFATE 4 MG/ML SYRINGE IVP PRN ×4 (00:57→20:17)
[2017-11-22] MEDS: ONDANSETRON 4 MG/2 ML VIAL IVP PRN (00:57)
[2017-11-22] MEDS: SYMBICORT 160-4.5 MCG INHALER INHALATION SCH ×2 (07:07→20:24)
[2017-11-22] MEDS: guaiFENesin 600 MG TABLET.ER PO SCH ×2 (07:55→19:53)
[2017-11-22] MEDS: NICOTINE 14MG/24HR PATCH TRANSDERM SCH (07:55)
[2017-11-22] MEDS: LISINOPRIL 20 MG TAB PO SCH (07:55)
[2017-11-22] MEDS: buPROPion XL 150 MG TAB.ER.24H PO SCH (07:55)
[2017-11-22] MEDS: ALVIMOPAN 12 MG CAPSULE PO SCH ×2 (07:56→19:54)
[2017-11-22] MEDS: LEVOTHYROXINE 50 MCG TAB PO SCH (07:56)
[2017-11-22] MEDS: PANTOPRAZOLE 40 MG TABLET PO SCH (07:56)
[2017-11-22 08:04] LABS: Basophils # (A) 0.1 k/uL (0-0.2); Basophils % (A) 0 %; Eosinophils # (A) 0.3 k/uL (0-0.7); Eosinophils % (A) 2 %; HCT 41.4 % (39.0-53.0); HGB 14.2 gm/dL (13.0-17.5); Lymphocytes # (A) 1.3 k/uL (1.0-4.8); Lymphocytes % (A) 10 %; MCH 32.3 pg (25.0-35.0); MCHC 34.2 g/dL (31.0-37.0); MCV 94.3 fL (80.0-100.0); Mean Platelet Volume 8.1; Monocytes # (A) 0.8 k/uL (0-1.0); Monocytes % (A) 6 %; Neutrophils # (A) 10.6 k/uL (1.3-7.7); Neutrophils % (A) 80 %; Platelet Count 281 k/uL (150-450); RBC 4.39 m/uL (4.30-5.90); RDW 13.1 % (11.5-15.5); WBC 13.3 k/uL (3.8-10.6)
[2017-11-22 08:16] LABS: ALT 63 U/L (21-72); AST 76 U/L (17-59); Albumin 3.5 g/dL (3.5-5.0); Alkaline Phosphatase 139 U/L (38-126); Anion Gap 11 mmol/L; Blood Urea Nitrogen 11 mg/dL (9-20); Calcium 9.1 mg/dL (8.4-10.2); Carbon Dioxide 28 mmol/L (22-30); Chloride 98 mmol/L (98-107); Glucose 118 mg/dL (74-99); Potassium 4.8 mmol/L (3.5-5.1); Sodium 137 mmol/L (137-145); Total Bilirubin 2.4 mg/dL (0.2-1.3); Total Protein 6.1 g/dL (6.3-8.2)
[2017-11-22] MEDS: ALPRAZolam 1 MG TAB PO PRN ×2 (09:49→19:54)
[2017-11-22] MEDS: FAMOTIDINE 20 MG/2 ML VIAL IV SCH ×2 (09:50→19:53)
--- NOTE | 2017-11-22 12:59 | P.PN ---
Subjective Progress Note Date: 11/22/17 Patient is postop November 18 repair of an incarcerated incisional hernia parastomal hernia with a partial colectomy. The patient has an epidural catheter for pain control which was removed yesterday. He has an ostomy in the left lower quadrant, stoma is pink and minimal ostomy output at this time. The patient is doing well without complaints. Banda catheter to be removed later today. Objective - Vital Signs Vital signs: Vital Signs Temp 97.8 F 11/22/17 07:00 Pulse 94 11/22/17 07:00 Resp 20 11/22/17 08:00 BP 147/82 11/22/17 07:00 Pulse Ox 94 L 11/22/17 07:00 Intake & Output 11/21/17 11/22/17 11/22/17 17:59 06:59 18:59 Intake Total 350 Output Total 30 Balance 320 Intake: Intake, IV Titration Amount Bupivacaine (Pf) 0.5% 31. 3 ml Hydromorphone (Pf) 5 mg In Sodium Chloride 0. 9% 218 ml @ Per Protocol EPIDURAL .Q0M PRN Rx#: [id number] D5-0.45% NaCl with KCl 20Meq/l 1,000 ml @ 75 mls /hr IV .[id number] [facility] Rx#: [id number] Piperacillin-Tazobactam 3 .375 gm In Dextrose/Water 1 50ml.bag @ 12.5 mls/hr IVPB Q8HR [facility] Rx#: [id number] Oral 350 Output: Drainage 30 Abdomen 30 Urine Other: Voiding Method Indwelling Catheter # Voids # Bowel Movements - Constitutional General appearance: Present: obese - Respiratory Details: Decreased breath sounds at the bases - Cardiovascular Rhythm: regular Heart sounds: normal: S1, S2 - Gastrointestinal Gastrointestinal Comment(s): Ostomy pink Drain 30 mL serosanguineous General gastrointestinal: Present: decreased bowel sounds - Psychiatric Psychiatric: Present: A&O x's 3, appropriate affect, intact judgment & insight - Labs CBC & Chem 7: 11/22/17 06:35 11/22/17 06:35 Labs: Abnormal Lab Results - Last 24 Hours (Table) 11/22/17 11/22/17 Range/Units 06:35 06:35 WBC 13.3 H (3.8-10.6) k/uL Neutrophils # 10.6 H (1.3-7.7) k/uL Glucose 118 H (74-99) mg/dL Total Bilirubin 2.4 H (0.2-1.3) mg/dL AST 76 H (17-59) U/L Alkaline Phosphatase 139 H (38-126) U/L Total Protein 6.1 L (6.3-8.2) g/dL Microbiology - Last 24 Hours (Table) 11/20/17 00:00 Gram Stain - Final Sputum Sputum Culture - Final 11/19/17 23:37 Blood Culture - Preliminary Blood No Growth after 48 hours 11/19/17 23:24 Blood Culture - Preliminary Blood No Growth after 48 hours Assessment and Plan Assessment: Impression/plan: 1. Repair of ventral/parastomal hernia with new placement of ostomy 2. History of sleep apnea with use of CPAP Plan: 1. Out of bed with assistance 2. Diet full liquids, await return of bowel function before advancing diet further 3. PT OT evaluation 4. DVT and GI prophylaxis 5. Incentive spirometry every hour while awake
[2017-11-22] MEDS: D5-0.45% NACL WITH KCL 20MEQ/L 1,000 ML IV SCH ×2 (13:33→17:43)
--- NOTE | 2017-11-22 17:16 | P.PN ---
Subjective Progress Note Date: 11/22/17 This is a very pleasant 52-year-old gentleman who follows with Dr. Vyas as his primary care physician. He has history of hypertension, gastroesophageal reflux disease, hypothyroidism. He has chronic obstructive pulmonary disease and chronic and ongoing tobacco dependence. He utilizes Symbicort and albuterol. He has a baseline FEV1 of 55% of predicted. He also has obstructive sleep apnea and follows with Dr. Fritz in our office for the same. His last sleep titration was in October 2014. He has severe symptomatic obstructive sleep apnea with an AHI of 130. His BiPAP pressures are 18/14 cm of water. He utilizes Al FX small size mask with a chinstrap. He also has severe nocturnal oxygen desaturation and chronic hypersomnia with [place] score of 22. He also has a history of perforated colon with subsequent colectomy and colostomy in 2010. He has multiple abdominal incisional hernias as well as parastomal hernia. He did obtain preoperative clearance from Dr. Fritz. He presented here yesterday for an elective surgical repair with Dr. Perez. He performed lysis of adhesions, repair of incarcerated incisional hernia, repair of incarcerated parastomal hernia, partial colectomy, omentectomy and takedown of splenic flexure. The patient is seen today in consultation on the surgical floor. He is currently awake and alert in no acute distress. He does have an epidural for pain control with Bupivacaine/ Dilaudid. He did bring his BiPAP machine from home and was wearing it last night and into this morning. He denies any shortness of breath, cough or congestion. He does feel there is some thick phlegm in his throat. We will add Mucinex. He is maintaining good O2 saturations in the 90s on 3 L/m per nasal cannula. He's been afebrile. His stoma is pink and viable. There is minimal output. Surgical dressing is dry and intact. The patient is seen today 11/20/2017 in follow-up in the surgical floor. He is awake and alert in no acute distress. He did have episode of anxiety last evening. He is doing better today. He is utilizing his BiPAP pressures of 18/ 14 cm of water throughout the evening and while napping. His pain is well controlled. Epidural remains in place. He is working well at the incentive spirometry pulling 1500 mls. He is maintaining O2 saturations in the 90s on 2 L /m per nasal cannula. He is afebrile. Hemodynamically stable. Sputum and urine cultures are pending. Currently on Zosyn. White count improved currently 16.5. Hemoglobin 13.3. His abdominal dressing is dry and intact. His stoma is viable although no output. No significant bowel sounds detected. The patient is seen again today 11/21/2017 in follow-up in the surgical floor. He is currently sitting up in a chair at the bedside. He is awake and alert in no acute distress. He denies any worsening shortness of breath, cough or congestion. His pain is well controlled. He is working well of the incentive spirometer. He is maintaining good O2 saturations in the high 90s on room air. He is afebrile. Hemodynamically stable. Blood culture reveals no growth to date. White count 13.3. Hemoglobin 13.0. Creatinine 0.81. Stoma is pink. There is a small amount of stool and gas noted. On 11/22/2017 the patient is still stable and the patient is not having any major stroke difficulties. Abdomen is nondistended yet the patient has sluggish bowel sounds and there is no activity in the colostomy bag. The colostomy itself is viable yet that is no significant liquids or bowel activity within the bag. Surgical wound site is clean. The patient is using incentive spirometer. His emanating. The Banda catheter will be removed. The epidural catheter will be also removed. Objective - Vital Signs Vital signs: Vital Signs Temp 98.2 F 11/22/17 14:16 Pulse 60 11/22/17 14:16 Resp 16 11/22/17 14:16 BP 151/95 11/22/17 14:16 Pulse Ox 96 11/22/17 14:16 Intake & Output 11/21/17 11/22/17 11/22/17 17:59 06:59 18:59 Intake Total 1575 Output Total 1930 Balance -355 Intake: Intake, IV Titration 625 Amount Bupivacaine (Pf) 0.5% 31. 3 ml Hydromorphone (Pf) 5 mg In Sodium Chloride 0. 9% 218 ml @ Per Protocol EPIDURAL .Q0M [facility] Rx#: [id number] D5-0.45% NaCl with KCl 525 20Meq/l 1,000 ml @ 75 mls /hr IV .[id number] [facility] Rx#: [id number] Piperacillin-Tazobactam 3 100 .375 gm In Dextrose/Water 1 50ml.bag @ 12.5 mls/hr IVPB Q8HR [facility] Rx#: [id number] Oral 950 Output: Drainage 30 Abdomen 30 Urine 1800 Uretheral (Banda) 800 Stool 100 Other: Voiding Method Toilet Urinal # Voids # Bowel Movements - Exam GENERAL EXAM: Alert, comfortable in no apparent distress. HEAD: Normocephalic. EYES: Normal reaction of pupils, equal size. NOSE: Clear with pink turbinates. THROAT: There is crowding of the posterior pharynx. No erythema or exudates. NECK: Short. No masses, no JVD. CHEST: No chest wall deformity. LUNGS: Equal air entry with no crackles, wheeze, rhonchi or dullness. CVS: S1 and S2 normal with no audible murmur, regular rhythm. ABDOMEN: Stoma is pink and viable, dressings dry and intact. LUPE drain in place. Bowel sounds are extremely hypoactive SPINE: No scoliosis or deformity SKIN: No rashes CENTRAL NERVOUS SYSTEM: No focal deficits, tone is normal in all 4 extremities. EXTREMITIES: There is no peripheral edema. No clubbing, no cyanosis. Peripheral pulses are intact. - Labs CBC & Chem 7: 11/22/17 06:35 11/22/17 06:35 Labs: Abnormal Lab Results - Last 24 Hours (Table) 11/22/17 11/22/17 Range/Units 06:35 06:35 WBC 13.3 H (3.8-10.6) k/uL Neutrophils # 10.6 H (1.3-7.7) k/uL Glucose 118 H (74-99) mg/dL Total Bilirubin 2.4 H (0.2-1.3) mg/dL AST 76 H (17-59) U/L Alkaline Phosphatase 139 H (38-126) U/L Total Protein 6.1 L (6.3-8.2) g/dL Microbiology - Last 24 Hours (Table) 11/20/17 00:00 Gram Stain - Final Sputum Sputum Culture - Final 11/19/17 23:37 Blood Culture - Preliminary Blood No Growth after 48 hours 11/19/17 23:24 Blood Culture - Preliminary Blood No Growth after 48 hours Assessment and Plan Plan: #1 Incarcerated incisional and parastomal hernias with previous history of perforated diverticulitis and colostomy placement in 2010. Status post lysis of adhesions, repair of incarcerated incisional hernia, repair of incarcerated parastomal hernia, partial colectomy, omentectomy, takedown of splenic flexure. Postoperative day 4 #2 Severe obstructive sleep apnea with an AHI of 130 along with nocturnal oxygen desaturations utilizing BiPAP in the outpatient setting 18/14 cm of water. #3 Morbid obesity. #4 Chronic hypersomnia with [place] score of 22. #5 Chronic and ongoing tobacco dependence. #6 Chronic obstructive pulmonary disease with an FEV1 value 55% of predicted. #7 Seasonal ALLERGIC rhinitis. #8 Anxiety. Plan: Remove the epidural catheter. Remove the Banda catheter. Asked the patient to ambulate. Monitor bowel activity. Abdominal wound is clean. The patient utilizing BiPAP overnight. COPD is inactive and stable. We'll continue to follow.
[2017-11-22] MEDS: HYDROcodone/APAP 5-325MG 1 EACH TAB PO PRN (18:47)
[2017-11-23] MEDS: PIPERACILLIN-TAZOBACTAM 3.375 GM in DEXTROSE/WATER 1 50ML.BAG IVPB SCH ×3 (02:18→18:54)
[2017-11-23] MEDS: HEPARIN SODIUM,PORCINE 5,000 UNIT/ML 1 ML VIAL SQ SCH ×4 (02:18→23:57)
[2017-11-23] MEDS: MORPHINE SULFATE 4 MG/ML SYRINGE IVP PRN ×2 (02:21→09:37)
[2017-11-23] MEDS: HYDROcodone/APAP 5-325MG 1 EACH TAB PO PRN ×4 (05:39→23:57)
--- NOTE | 2017-11-23 05:44 | PN ---
PROGRESS NOTE DATE OF SERVICE: 11/22/2017. REASON FOR FOLLOWUP: Leukocytosis with incarcerated parastomal incisional hernia. INTERVAL HISTORY: The patient is afebrile. He is breathing comfortably. He did have some cough but not bringing up any sputum. No nausea, vomiting. Some abdominal distention and did not have any output in his colostomy bag. EXAMINATION: Blood pressure 155/81 with a pulse of 92, temperature 97.6. He is 92% on 3 L nasal cannula. General description is a middle aged male up in the bed in no distress. Respiratory system: Unlabored breathing, clear to auscultation. No wheeze or crackles. Heart S1, S2 regular rate and rhythm. Abdomen soft, mildly distended. No guarding or rigidity. LABS: Hemoglobin is 14.8, white count 13.3 with a BUN of 11, creatinine 0.62. Blood culture has been negative. Sputum so far negative. DIAGNOSTIC IMPRESSION AND PLAN: Patient with leukocytosis in a patient admitted to the hospital for elective surgery noticed to have parastomal and incisional hernia status post open repair of the same. Plan at this time is to keep the patient on Zosyn watching his kidney function closely. Continue supportive care. MMODL / IJN: [id number] /
[2017-11-23 07:48] LABS: Basophils % (A) 0 %; Eosinophils # (A) 0.4 k/uL (0-0.7); Eosinophils % (A) 4 %; HCT 39.9 % (39.0-53.0); HGB 13.2 gm/dL (13.0-17.5); Lymphocytes # (A) 1.1 k/uL (1.0-4.8); Lymphocytes % (A) 10 %; MCH 31.3 pg (25.0-35.0); MCV 95.1 fL (80.0-100.0); Mean Platelet Volume 8.1; Monocytes # (A) 0.9 k/uL (0-1.0); Monocytes % (A) 9 %; Neutrophils % (A) 76 %; Platelet Count 246 k/uL (150-450); RDW 13.3 % (11.5-15.5); WBC 10.6 k/uL (3.8-10.6)
[2017-11-23 08:11] LABS: ALT 75 U/L (21-72); AST 71 U/L (17-59); Albumin 3.4 g/dL (3.5-5.0); Alkaline Phosphatase 146 U/L (38-126); Anion Gap 9 mmol/L; Blood Urea Nitrogen 9 mg/dL (9-20); Calcium 9.1 mg/dL (8.4-10.2); Carbon Dioxide 28 mmol/L (22-30); Chloride 100 mmol/L (98-107); Glucose 106 mg/dL (74-99); Potassium 4.7 mmol/L (3.5-5.1); Sodium 137 mmol/L (137-145); Total Bilirubin 1.8 mg/dL (0.2-1.3); Total Protein 6.1 g/dL (6.3-8.2)
[2017-11-23] MEDS: NICOTINE 14MG/24HR PATCH TRANSDERM SCH (08:55)
[2017-11-23] MEDS: ALPRAZolam 1 MG TAB PO PRN ×2 (08:55→20:47)
[2017-11-23] MEDS: guaiFENesin 600 MG TABLET.ER PO SCH ×2 (08:55→20:47)
[2017-11-23] MEDS: buPROPion XL 150 MG TAB.ER.24H PO SCH (08:56)
[2017-11-23] MEDS: LISINOPRIL 20 MG TAB PO SCH (08:56)
[2017-11-23] MEDS: ALVIMOPAN 12 MG CAPSULE PO SCH ×2 (08:56→20:47)
[2017-11-23] MEDS: LEVOTHYROXINE 50 MCG TAB PO SCH (08:56)
[2017-11-23] MEDS: PANTOPRAZOLE 40 MG TABLET PO SCH (08:56)
[2017-11-23] MEDS: SYMBICORT 160-4.5 MCG INHALER INHALATION SCH ×2 (09:34→20:34)
--- NOTE | 2017-11-23 09:38 | P.PN ---
Subjective Progress Note Date: 11/23/17 Principal diagnosis: Incarcerated incisional and parastomal hernia with previous history of perforated diverticulitis and colostomy placement in 2010. Status post lysis of adhesions and repair, partial colectomy, omentectomy This is a very pleasant 52-year-old gentleman who follows with Dr. Vyas as his primary care physician. He has history of hypertension, gastroesophageal reflux disease, hypothyroidism. He has chronic obstructive pulmonary disease and chronic and ongoing tobacco dependence. He utilizes Symbicort and albuterol. He has a baseline FEV1 of 55% of predicted. He also has obstructive sleep apnea and follows with Dr. Fritz in our office for the same. His last sleep titration was in October 2014. He has severe symptomatic obstructive sleep apnea with an AHI of 130. His BiPAP pressures are 18/14 cm of water. He utilizes Al FX small size mask with a chinstrap. He also has severe nocturnal oxygen desaturation and chronic hypersomnia with [place] score of 22. He also has a history of perforated colon with subsequent colectomy and colostomy in 2010. He has multiple abdominal incisional hernias as well as parastomal hernia. He did obtain preoperative clearance from Dr. Fritz. He presented here yesterday for an elective surgical repair with Dr. Perez. He performed lysis of adhesions, repair of incarcerated incisional hernia, repair of incarcerated parastomal hernia, partial colectomy, omentectomy and takedown of splenic flexure. The patient is seen today in consultation on the surgical floor. He is currently awake and alert in no acute distress. He does have an epidural for pain control with Bupivacaine/ Dilaudid. He did bring his BiPAP machine from home and was wearing it last night and into this morning. He denies any shortness of breath, cough or congestion. He does feel there is some thick phlegm in his throat. We will add Mucinex. He is maintaining good O2 saturations in the 90s on 3 L/m per nasal cannula. He's been afebrile. His stoma is pink and viable. There is minimal output. Surgical dressing is dry and intact. The patient is seen today 11/20/2017 in follow-up in the surgical floor. He is awake and alert in no acute distress. He did have episode of anxiety last evening. He is doing better today. He is utilizing his BiPAP pressures of 18/ 14 cm of water throughout the evening and while napping. His pain is well controlled. Epidural remains in place. He is working well at the incentive spirometry pulling 1500 mls. He is maintaining O2 saturations in the 90s on 2 L /m per nasal cannula. He is afebrile. Hemodynamically stable. Sputum and urine cultures are pending. Currently on Zosyn. White count improved currently 16.5. Hemoglobin 13.3. His abdominal dressing is dry and intact. His stoma is viable although no output. No significant bowel sounds detected. The patient is seen again today 11/21/2017 in follow-up in the surgical floor. He is currently sitting up in a chair at the bedside. He is awake and alert in no acute distress. He denies any worsening shortness of breath, cough or congestion. His pain is well controlled. He is working well of the incentive spirometer. He is maintaining good O2 saturations in the high 90s on room air. He is afebrile. Hemodynamically stable. Blood culture reveals no growth to date. White count 13.3. Hemoglobin 13.0. Creatinine 0.81. Stoma is pink. There is a small amount of stool and gas noted. On 11/22/2017 the patient is still stable and the patient is not having any major stroke difficulties. Abdomen is nondistended yet the patient has sluggish bowel sounds and there is no activity in the colostomy bag. The colostomy itself is viable yet that is no significant liquids or bowel activity within the bag. Surgical wound site is clean. The patient is using incentive spirometer. His emanating. The Banda catheter will be removed. The epidural catheter will be also removed. On 11/23/2017 patient seen in follow-up. Denies any respiratory distress, able to achieve 1500 on his incentive spirometry today. As been ambulating in the hallway, tolerating activity well. Recurrent on room air, with O2 sat at 97%. He remains afebrile, hemodynamically stable. Sounds are hypoactive, abdomen is somewhat firm, and distended. LUPE drain on the right side of the abdomen is draining small amount of serous drainage. No gas or stool from the colostomy. She is tolerating clear liquid diet. His epidural and Banda catheter were discontinued yesterday. His pain is reasonably well controlled. Today's lab work shows WBC of 10.6, hemoglobin is 13.2, electrolytes and renal profile are within normal limits. Objective - Vital Signs Vital signs: Vital Signs Temp 97.8 F 11/23/17 07:00 Pulse 85 11/23/17 07:00 Resp 16 11/23/17 07:00 BP 164/85 11/23/17 07:00 Pulse Ox 97 11/23/17 07:00 Intake & Output 11/22/17 11/23/17 11/23/17 18:59 06:59 18:59 Intake Total 1695 1590 Output Total 1930 3330 300 Balance -235 -1740 -300 Weight 101.151 kg Intake: Intake, IV Titration 625 1050 Amount D5-0.45% NaCl with KCl 525 1000 20Meq/l 1,000 ml @ 75 mls /hr IV .[id number] JAKE Rx#: [id number] Piperacillin-Tazobactam 3 100 50 .375 gm In Dextrose/Water 1 50ml.bag @ 12.5 mls/hr IVPB Q8HR JAKE Rx#: [id number] Oral 1070 540 Output: Drainage 30 30 Abdomen 30 30 Urine 1800 3300 300 Uretheral (Banda) 800 Stool 100 Other: Voiding Method Toilet Urinal Urinal # Voids 1 - Exam GENERAL EXAM: Alert, comfortable in no apparent distress. HEAD: Normocephalic. EYES: Normal reaction of pupils, equal size. NOSE: Clear with pink turbinates. THROAT: There is crowding of the posterior pharynx. No erythema or exudates. NECK: Short. No masses, no JVD. CHEST: No chest wall deformity. LUNGS: Equal air entry with no crackles, wheeze, rhonchi or dullness. CVS: S1 and S2 normal with no audible murmur, regular rhythm. ABDOMEN: Stoma is pink and viable, dressings dry and intact. LUPE drain in place. Bowel sounds are extremely hypoactive SPINE: No scoliosis or deformity SKIN: No rashes CENTRAL NERVOUS SYSTEM: No focal deficits, tone is normal in all 4 extremities. EXTREMITIES: There is no peripheral edema. No clubbing, no cyanosis. Peripheral pulses are intact. - Labs CBC & Chem 7: 11/23/17 06:49 11/23/17 06:49 Labs: Abnormal Lab Results - Last 24 Hours (Table) 11/23/17 11/23/17 Range/Units 06:49 06:49 RBC 4.20 L (4.30-5.90) m/uL Neutrophils # 8.0 H (1.3-7.7) k/uL Glucose 106 H (74-99) mg/dL Total Bilirubin 1.8 H (0.2-1.3) mg/dL AST 71 H (17-59) U/L ALT 75 H (21-72) U/L Alkaline Phosphatase 146 H (38-126) U/L Total Protein 6.1 L (6.3-8.2) g/dL Albumin 3.4 L (3.5-5.0) g/dL Microbiology - Last 24 Hours (Table) 11/19/17 23:37 Blood Culture - Preliminary Blood No Growth after 72 hours 11/19/17 23:24 Blood Culture - Preliminary Blood No Growth after 72 hours 11/20/17 00:00 Gram Stain - Final Sputum Sputum Culture - Final Assessment and Plan Plan: Assessment: #1 Incarcerated incisional and parastomal hernias with previous history of perforated diverticulitis and colostomy placement in 2010. Status post lysis of adhesions, repair of incarcerated incisional hernia, repair of incarcerated parastomal hernia, partial colectomy, omentectomy, takedown of splenic flexure. Postoperative day 5 #2 Severe obstructive sleep apnea with an AHI of 130 along with nocturnal oxygen desaturations utilizing BiPAP in the outpatient setting 18/14 cm of water. #3 Morbid obesity. #4 Chronic hypersomnia with [place] score of 22. #5 Chronic and ongoing tobacco dependence. #6 Chronic obstructive pulmonary disease with an FEV1 value 55% of predicted. #7 Seasonal ALLERGIC rhinitis. #8 Anxiety. Plan: Continue encouraging incentive spirometry, continue encouraging ambulation. bowel sounds remain extremely hypoactive, there is no gas or stool out of the colostomy yet. Continue BiPap use at night and home settings. Continue nebulized treatments. I performed a history & physical examination of the patient and discussed their management with my nurse practitioner, Jud Moore. I reviewed the nurse practitioner's note and agree with the documented findings and plan of care. Lung sounds are clear. The findings and the impression was discussed with the patient. I attest to the documentation by the nurse practitioner. Time with Patient: Less than 30
--- NOTE | 2017-11-23 10:53 | P.PN ---
<Debbie Naik - Last Filed: 11/23/17 10:29> Subjective Progress Note Date: 11/23/17 52-year-old male seen and examined resting in bed with CPAP on Patient states he's tired but did walk in the [place] 3 times yesterday. No movement from the ostomy. Ostomy stoma pink left lower quadrant. LUPE drain in place serous drainage. Pain medication effective for pain control. Epidural catheter removed the day before analgesics effective for pain control urinating no difficulty postop November 18 repair of incarcerated incisional and parastomal hernia partial colectomy Objective - Vital Signs Vital signs: Vital Signs Temp 97.8 F 11/23/17 07:00 Pulse 85 11/23/17 07:00 Resp 16 11/23/17 07:00 BP 164/85 11/23/17 07:00 Pulse Ox 97 11/23/17 07:00 Intake & Output 11/22/17 11/23/17 11/23/17 18:59 06:59 18:59 Intake Total 1695 1590 Output Total 1930 3330 550 Balance -235 -1740 -550 Weight 101.151 kg Intake: Intake, IV Titration 625 1050 Amount D5-0.45% NaCl with KCl 525 1000 20Meq/l 1,000 ml @ 75 mls /hr IV .[id number] JAKE Rx#: [id number] Piperacillin-Tazobactam 3 100 50 .375 gm In Dextrose/Water 1 50ml.bag @ 12.5 mls/hr IVPB Q8HR JAKE Rx#: [id number] Oral 1070 540 Output: Drainage 30 30 Abdomen 30 30 Urine 1800 3300 550 Uretheral (Banda) 800 Stool 100 Other: Voiding Method Toilet Urinal Urinal # Voids 1 - Exam Exam Abdomen mild surgical tenderness. Abdominal binder in place. Ostomy left lower quadrant stoma pink no drainage in the ostomy bag. LUPE drain in place serous drainage. Reports no nausea vomiting. Reports urinating no difficulty. Decreased bowel sounds - Labs CBC & Chem 7: 11/23/17 06:49 11/23/17 06:49 Labs: Abnormal Lab Results - Last 24 Hours (Table) 11/23/17 11/23/17 Range/Units 06:49 06:49 RBC 4.20 L (4.30-5.90) m/uL Neutrophils # 8.0 H (1.3-7.7) k/uL Glucose 106 H (74-99) mg/dL Total Bilirubin 1.8 H (0.2-1.3) mg/dL AST 71 H (17-59) U/L ALT 75 H (21-72) U/L Alkaline Phosphatase 146 H (38-126) U/L Total Protein 6.1 L (6.3-8.2) g/dL Albumin 3.4 L (3.5-5.0) g/dL Microbiology - Last 24 Hours (Table) 11/19/17 23:37 Blood Culture - Preliminary Blood No Growth after 72 hours 11/19/17 23:24 Blood Culture - Preliminary Blood No Growth after 72 hours 11/20/17 00:00 Gram Stain - Final Sputum Sputum Culture - Final Assessment and Plan Assessment: Impression 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 presented to electively undergo reversal of colostomy History of parastomal hernia History of sleep apnea with the use of CPAP therapy History of diverticulitis perforated colon 2010 Postop November 18 lysis of adhesion, repair of incarcerated incisional and parastomal hernia, partial colectomy, omentectomy not able to reverse ostomy Leukocytosis likely due to incarcerated incisional as well as parastomal hernia status post repair Mild hematuria likely due to indwelling Banda catheter placed in surgery unexpected resolved Plan Increase activity Advance diet to full liquid Continue postop surgical course Hep-Lock IV PT OT eval May benefit from subacute rehab Pain control IV fluid for hydration DVT and GI prophylaxis incentive spirometer every 1 hour while awake Further surgical recommendations pending will follow Progress note dictated for Dr. Pascual rounding on behalf followed Dr. fairchild The above impression and plan of care have been discussed and directed by signing physician. Debbie Naik nurse practitioner acting as scribe for signing physician. <Bridger Hunt - Last Filed: 11/23/17 15:40> Objective - Vital Signs Vital signs: Vital Signs Temp 98.9 F 11/23/17 14:58 Pulse 89 11/23/17 14:58 Resp 18 11/23/17 14:58 BP 166/85 11/23/17 14:58 Pulse Ox 96 11/23/17 14:58 Intake & Output 11/22/17 11/23/17 11/23/17 18:59 06:59 18:59 Intake Total 1695 1590 Output Total 1930 3330 550 Balance -235 -1740 -550 Weight 101.151 kg 101.151 kg Intake: Intake, IV Titration 625 1050 Amount D5-0.45% NaCl with KCl 525 1000 20Meq/l 1,000 ml @ 75 mls /hr IV .[id number] JAKE Rx#: [id number] Piperacillin-Tazobactam 3 100 50 .375 gm In Dextrose/Water 1 50ml.bag @ 12.5 mls/hr IVPB Q8HR JAKE Rx#: [id number] Oral 1070 540 Output: Drainage 30 30 Abdomen 30 30 Urine 1800 3300 550 Uretheral (Banda) 800 Stool 100 Other: Voiding Method Toilet Urinal Urinal # Voids 1 - Labs CBC & Chem 7: 11/23/17 06:49 11/23/17 06:49 Labs: Abnormal Lab Results - Last 24 Hours (Table) 11/23/17 11/23/17 Range/Units 06:49 06:49 RBC 4.20 L (4.30-5.90) m/uL Neutrophils # 8.0 H (1.3-7.7) k/uL Glucose 106 H (74-99) mg/dL Total Bilirubin 1.8 H (0.2-1.3) mg/dL AST 71 H (17-59) U/L ALT 75 H (21-72) U/L Alkaline Phosphatase 146 H (38-126) U/L Total Protein 6.1 L (6.3-8.2) g/dL Albumin 3.4 L (3.5-5.0) g/dL Microbiology - Last 24 Hours (Table) 11/19/17 23:37 Blood Culture - Preliminary Blood No Growth after 72 hours 11/19/17 23:24 Blood Culture - Preliminary Blood No Growth after 72 hours Assessment and Plan Assessment: As above. Patient's abdominal bloating has improved. No nausea currently. Tolerating clear liquids. Some flatus from the ostomy. Activity level remains poor. Will increase diet to full liquids. Encourage increased activity.
--- NOTE | 2017-11-23 11:09 | CDI ---
Last Revision, August 2017 Documentation Clarification Form Date: From: Pilar Bustos Admit Date: 11/18/2017 8:57:00 AM Patient Name: Jack Shelton Visit Number: [id number] Discharge Date: ATTENTION: The Clinical Documentation Specialists (CDI) and [facility] Coding Staff appreciate your assistance in clarifying documentation. Please respond to the clarification below the line at the bottom and electronically sign. The CDI & [facility] Coding staff will review the response and follow-up if needed. Please note: Queries are made part of the Legal Health Record. If you have any questions, please contact the author of this message via ITS. Dr. Parish Perez During mobilization of the dilator there was a tear of the rectal stump is documented in the operative note. Patients Admitting Diagnosis: History of perforated diverticulitis, Incarcerated incision and parastomal hernia Post-Operative Diagnosis: Adhesions, Incarcerated incisional hernia, Incarcerated parastomal hernia, Severe scarring of rectal stump Procedure performed: Repair of incarcerated incisional hernia, parastomal hernia , partial colectomy, omentectomy, takedown of splenic flexure History/Risk Factors: Perforated diverticulitis with colostomy insertion Clinical Indicators: Present for colostomy reversal There was a large incisional hernia located underneath the skin. the incarcerated hernia containing omentum. The rectal stump was quite scarred. Treatment: Colostomy left upper quadrant (reversal of the colostomy was not preformed) Zosyn IV Epidural ( pain control) Monitor Labs In order to accurately reflect this patients severity of illness, please clarify if the tear of the rectal stump is: An expected post-procedural or post-surgical condition; Integral to the procedure; Inherent to the procedure; An unexpected post-procedural or post-surgical condition related to surgical care, patient medical conditions; Other, please specify Unable to determine Please continue to document in your progress notes and discharge summary in order to capture severity of illness and risk of mortality. Include clinical findings that support your diagnosis. MTDD
--- NOTE | 2017-11-23 14:42 | PN ---
PROGRESS NOTE DATE OF SERVICE: 11/22/2017 CHIEF COMPLAINT: Status post ventral herniorrhaphy. HISTORY OF PRESENT ILLNESS: This gentleman is doing fairly well but he has had very little bowel activity per colostomy. He has not had a lot of shortness of breath or chest pain. PHYSICAL EXAM: Dressings are dry. Chest is clear. Cardiac exam is normal. IMPRESSION: Status post repair of abdominal wall prolapse or hernia. PLAN: Continue to follow with surgery. He seems to be fairly stable at this time. MMODL / IJN: [id number] /
--- NOTE | 2017-11-23 14:48 | PN ---
PROGRESS NOTE CHIEF COMPLAINT: Status post repair of ventral hernia. HISTORY OF PRESENT ILLNESS: This gentleman is starting to become very agitated. He denies shortness of breath, chest pain, confusion, etc. PHYSICAL EXAM: Chest is clear. Cardiac exam is normal and his abdomen is soft and bowel sounds are heard. IMPRESSION: 1. Status post ventral herniorrhaphy. 2. Increasing anxiety. PLAN: Wait to see if he is going to be discharged. Otherwise, his anxiety may have to be further investigated. MMODL / IJN: [id number] /
--- NOTE | 2017-11-23 22:54 | PN ---
PROGRESS NOTE DATE OF SERVICE: 11/23/2017. REASON FOR FOLLOWUP: Leukocytosis. INTERVAL HISTORY: The patient is afebrile has been breathing comfortably. Denies significant chest pain or shortness of breath. No cough. Abdominal pain is currently controlled. There is some output in the colostomy bag. EXAMINATION: Blood pressure 166/85, pulse of 89, temperature 98.9. He is 96% on 2 L nasal cannula. General description is a middle aged male up in the bed in no distress. Respiratory system: Unlabored breathing. Clear to auscultation. No wheeze or crackles. Heart S1, S2. Regular rate and rhythm. Abdomen soft, slightly distended. No guarding or rigidity. LABS: White count normalized to 10.6 with a BUN of 9, creatinine 0.71. Culture has been negative so far. DIAGNOSTIC IMPRESSION AND PLAN: Patient with leukocytosis likely secondary to incarcerated parastomal and incisional hernia status post open repair of the same. Currently on Zosyn with culture negative. Hopefully finish therapy with oral Augmentin for another week to 10 days on discharge. Continue supportive care. MMODL / IJN: [id number] /
[2017-11-23] MEDS: FAMOTIDINE 20 MG TAB PO SCH (22:56)
[2017-11-23] MEDS: FAMOTIDINE 20 MG/2 ML VIAL IV SCH (22:57)
[2017-11-24] MEDS: PIPERACILLIN-TAZOBACTAM 3.375 GM in DEXTROSE/WATER 1 50ML.BAG IVPB SCH ×2 (02:06→09:28)
[2017-11-24] MEDS: HYDROcodone/APAP 5-325MG 1 EACH TAB PO PRN ×4 (05:52→23:39)
[2017-11-24 07:59] LABS: Basophils % (A) 1 %; Eosinophils # (A) 0.3 k/uL (0-0.7); Eosinophils % (A) 3 %; HCT 38.2 % (39.0-53.0); HGB 12.9 gm/dL (13.0-17.5); Lymphocytes # (A) 1.1 k/uL (1.0-4.8); Lymphocytes % (A) 13 %; MCH 31.8 pg (25.0-35.0); MCHC 33.7 g/dL (31.0-37.0); MCV 94.6 fL (80.0-100.0); Mean Platelet Volume 7.5; Monocytes # (A) 0.6 k/uL (0-1.0); Monocytes % (A) 7 %; Neutrophils # (A) 6.4 k/uL (1.3-7.7); Neutrophils % (A) 75 %; Platelet Count 259 k/uL (150-450); RBC 4.04 m/uL (4.30-5.90); RDW 13.1 % (11.5-15.5); WBC 8.6 k/uL (3.8-10.6)
[2017-11-24 08:17] LABS: ALT 113 U/L (21-72); AST 96 U/L (17-59); Albumin 3.4 g/dL (3.5-5.0); Alkaline Phosphatase 164 U/L (38-126); Anion Gap 10 mmol/L; Blood Urea Nitrogen 10 mg/dL (9-20); Calcium 9.2 mg/dL (8.4-10.2); Carbon Dioxide 28 mmol/L (22-30); Chloride 99 mmol/L (98-107); Glucose 104 mg/dL (74-99); Potassium 4.2 mmol/L (3.5-5.1); Sodium 137 mmol/L (137-145); Total Bilirubin 1.3 mg/dL (0.2-1.3); Total Protein 5.8 g/dL (6.3-8.2)
[2017-11-24] MEDS: SYMBICORT 160-4.5 MCG INHALER INHALATION SCH ×2 (08:30→20:18)
[2017-11-24] MEDS: NICOTINE 14MG/24HR PATCH TRANSDERM SCH (09:25)
[2017-11-24] MEDS: LEVOTHYROXINE 50 MCG TAB PO SCH (09:26)
[2017-11-24] MEDS: HEPARIN SODIUM,PORCINE 5,000 UNIT/ML 1 ML VIAL SQ SCH ×3 (09:26→23:37)
[2017-11-24] MEDS: FAMOTIDINE 20 MG TAB PO SCH ×2 (09:26→20:51)
[2017-11-24] MEDS: ALVIMOPAN 12 MG CAPSULE PO SCH ×2 (09:26→20:50)
[2017-11-24] MEDS: LISINOPRIL 20 MG TAB PO SCH (09:27)
[2017-11-24] MEDS: buPROPion XL 150 MG TAB.ER.24H PO SCH (09:27)
[2017-11-24] MEDS: guaiFENesin 600 MG TABLET.ER PO SCH ×2 (09:27→20:51)
--- NOTE | 2017-11-24 10:18 | P.PN ---
Subjective Progress Note Date: 11/24/17 52-year-old female seen and examined. Patient was up ambulating in the hallway. Patient states passing gas. Urinating no difficulty. Did note the AST is elevated 113 ALT 164. The blood pressure is elevated 190/95 medicine will address antihypertensive meds are aware. Patient states tolerating diet full liquid medication effective for pain control ostomy stoma pink no stool postop November 18 repair of incarcerated incisional and parastomal hernia partial colectomy Objective - Vital Signs Vital signs: Vital Signs Temp 98.2 F 11/24/17 07:47 Pulse 81 11/24/17 07:47 Resp 18 11/24/17 07:47 BP 162/87 11/24/17 07:47 Pulse Ox 97 11/24/17 07:47 Intake & Output 11/23/17 11/24/17 11/24/17 18:59 06:59 18:59 Intake Total 650 600 Output Total 550 795 Balance 100 -195 Weight 101.151 kg Intake: IV 600 D5-0.45% NaCl with KCl 600 20Meq/l 1,000 ml @ 75 mls /hr IV .[id number] JAKE Rx#: [id number] Intake, IV Titration 650 Amount D5-0.45% NaCl with KCl 600 20Meq/l 1,000 ml @ 75 mls /hr IV .[id number] JAKE Rx#: [id number] Piperacillin-Tazobactam 3 50 .375 gm In Dextrose/Water 1 50ml.bag @ 12.5 mls/hr IVPB Q8HR JAKE Rx#: [id number] Output: Drainage 20 Abdomen 20 Urine 550 775 - Exam Physical exam Abdomen ostomy left lower quadrant stoma pink no movement no stool passing gas surgical incision dressings dry LUPE drain serosanguineous drainage noted in the bulb mild surgical tenderness. Abdominal binder in place. Tolerating diet reports no nausea vomiting. No difficulty in urinating. Bowel tones present - Labs CBC & Chem 7: 11/24/17 07:32 11/24/17 07:32 Labs: Abnormal Lab Results - Last 24 Hours (Table) 11/24/17 11/24/17 Range/Units 07:32 07:32 RBC 4.04 L (4.30-5.90) m/uL Hgb 12.9 L (13.0-17.5) gm/dL Hct 38.2 L (39.0-53.0) % Glucose 104 H (74-99) mg/dL AST 96 H (17-59) U/L ALT 113 H (21-72) U/L Alkaline Phosphatase 164 H (38-126) U/L Total Protein 5.8 L (6.3-8.2) g/dL Albumin 3.4 L (3.5-5.0) g/dL Microbiology - Last 24 Hours (Table) 11/19/17 23:37 Blood Culture - Preliminary Blood No Growth after 96 hours 11/19/17 23:24 Blood Culture - Preliminary Blood No Growth after 96 hours Assessment and Plan Assessment: Impression 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 presented to electively undergo reversal of colostomy History of parastomal hernia History of sleep apnea with the use of CPAP therapy History of diverticulitis perforated colon 2010 Postop November 18 lysis of adhesion, repair of incarcerated incisional and parastomal hernia, partial colectomy, omentectomy not able to reverse ostomy Leukocytosis likely due to incarcerated incisional as well as parastomal hernia status post repair Mild hematuria likely due to indwelling Banda catheter placed in surgery unexpected resolved Mildly elevated AST and ALT Hypertension labile Plan Increase activity Advance diet to full liquid Continue postop surgical course Hep-Lock IV Pain control DVT and GI prophylaxis incentive spirometer every 1 hour while awake Further surgical recommendations pending will follow IV Zosyn as ordered PCP to address antihypertensive meds Progress note dictated for Dr. fairchild The above impression and plan of care have been discussed and directed by signing physician. Debbie Naik nurse practitioner acting as scribe for signing physician.
[2017-11-24] MEDS: ALPRAZolam 1 MG TAB PO PRN ×2 (12:20→20:49)
[2017-11-24] MEDS: hydrALAZINE HCL 50 MG TAB PO SCH ×2 (15:36→20:51)
--- NOTE | 2017-11-24 16:13 | PN ---
PROGRESS NOTE DATE OF SERVICE: 11/24/2017. REASON FOR FOLLOWUP: Leukocytosis with incarcerated incisional parastomal hernia. INTERVAL HISTORY: The patient is afebrile. He is breathing comfortably. has a lot of but does not have any output in the colostomy bag. Denies any chest pain or shortness of breath or occasional cough. No urinary symptoms. EXAMINATION: Blood pressure 152/87 with a pulse of 81, temperature 98.2. He is 97% on 2 L nasal cannula. General description is a middle-aged male lying in bed in no distress. RESPIRATORY SYSTEM: Unlabored breathing. Clear to auscultation. HEART: S1, S2. Regular rate and rhythm. ABDOMEN: Soft, no tenderness. LABS: Hemoglobin is 12.8, white count 8.6 with a BUN of 10, creatinine 0.80, slightly elevation liver enzymes. DIAGNOSTIC IMPRESSION AND PLAN: Patient with leukocytosis which is multifactorial with likely component of a incarcerated parastomal and incisional hernia status was repaired of the same. The patient antibiotic will be adjusted to the Augmentin 875 b.i.d. for another week and liver enzymes will be monitored closely. Continue supportive care. MMODL / IJN: [id number] /
[2017-11-24 16:27] LABS: Glucose,Whole Blood 115 mg/dL (75-99)
--- NOTE | 2017-11-24 19:19 | PN ---
PROGRESS NOTE CHIEF COMPLAINT: Status post ventral abdominal herniorrhaphy. HISTORY OF PRESENT ILLNESS: This gentleman seems to be doing fairly well. His blood pressure is elevated, however. He also is not passing anything significant into his colostomy bag. He is not vomiting and he is not running a fever. PHYSICAL EXAMINATION: Blood pressure is 154/105. Chest is clear. Cardiac exam is normal. The abdomen is distended. Colostomy bag is empty. IMPRESSION: 1. Status post repair of ventral hernia. 2. Hypertension. 3. Chronic obstructive pulmonary disease. PLAN: Increase antihypertensives. MMODL / IJN: [id number] /
[2017-11-24] MEDS: AMOXIC-POT CLAV 875-125MG 1 EACH TAB PO SCH (20:50)
[2017-11-25] MEDS: HYDROcodone/APAP 5-325MG 1 EACH TAB PO PRN ×2 (05:23→10:19)
[2017-11-25] MEDS: LEVOTHYROXINE 50 MCG TAB PO SCH (05:24)
[2017-11-25] MEDS: ALPRAZolam 1 MG TAB PO PRN (07:42)
[2017-11-25] MEDS: HEPARIN SODIUM,PORCINE 5,000 UNIT/ML 1 ML VIAL SQ SCH (07:42)
[2017-11-25] MEDS: NICOTINE 14MG/24HR PATCH TRANSDERM SCH (07:42)
[2017-11-25] MEDS: AMOXIC-POT CLAV 875-125MG 1 EACH TAB PO SCH (07:43)
[2017-11-25] MEDS: guaiFENesin 600 MG TABLET.ER PO SCH (07:43)
[2017-11-25] MEDS: FAMOTIDINE 20 MG TAB PO SCH (07:43)
[2017-11-25] MEDS: buPROPion XL 150 MG TAB.ER.24H PO SCH (07:43)
[2017-11-25] MEDS: ALVIMOPAN 12 MG CAPSULE PO SCH (07:43)
[2017-11-25] MEDS: hydrALAZINE HCL 50 MG TAB PO SCH (07:44)
[2017-11-25] MEDS: LISINOPRIL 20 MG TAB PO SCH (07:44)
[2017-11-25 08:00] LABS: ALT 145 U/L (21-72); AST 95 U/L (17-59); Albumin 3.5 g/dL (3.5-5.0); Alkaline Phosphatase 162 U/L (38-126); Anion Gap 10 mmol/L; Blood Urea Nitrogen 9 mg/dL (9-20); Calcium 9.5 mg/dL (8.4-10.2); Carbon Dioxide 26 mmol/L (22-30); Chloride 101 mmol/L (98-107); Glucose 102 mg/dL (74-99); Potassium 4.8 mmol/L (3.5-5.1); Sodium 137 mmol/L (137-145); Total Bilirubin 0.8 mg/dL (0.2-1.3)
[2017-11-25 08:25] VITALS: BP 164/90; PULSE 93; RESP 16; TEMP 97
[2017-11-25] MEDS: SYMBICORT 160-4.5 MCG INHALER INHALATION SCH (09:17)
--- NOTE | 2017-11-25 12:21 | P.DS ---
Providers Date of admission: 11/18/17 08:57 Expected date of discharge: 11/25/17 Attending physician: Parish Perez Consults: 11/18/17 15:27 Consult Physician Routine Consulting Provider: Shivam Vyas Consult Reason/Comments: Medical management Do you want consulting provider notified?: Yes 11/18/17 15:29 Consult Physician Routine Consulting Provider: Luis A Fritz Consult Reason/Comments: Pulmonary management Do you want consulting provider notified?: Yes 11/19/17 08:15 Consult Physician Routine Consulting Provider: Arvin Ashby Consult Reason/Comments: elevated wbc Do you want consulting provider notified?: Yes Primary care physician: Shivam Vyas [facility] Course: A 52-year-old male presented on November 18 for reversal of colostomy and a repair of parastomal hernia. Patient had under gone a Adam's procedure approximate 7 years ago. Patient underwent on November 18 lysis of adhesions, repair of incarcerated incisional and peristomal hernia, partial colectomy, omentectomy. Due to severe scarring of the rectal stump patient's ostomy was not able to be reversed. There were no postop events. 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 presented to electively undergo reversal of colostomy History of parastomal hernia History of sleep apnea with the use of CPAP therapy History of diverticulitis perforated colon 2010 Postop November 18 lysis of adhesion, repair of incarcerated incisional and parastomal hernia, partial colectomy, omentectomy not able to reverse ostomy Leukocytosis likely due to incarcerated incisional as well as parastomal hernia status post repair Mild hematuria likely due to indwelling Banda catheter placed in surgery unexpected resolved Mildly elevated AST and ALT Hypertension labile Current every day smoker The above impression and plan of care have been discussed and directed by signing physician. Debbie Naik nurse practitioner acting as scribe for signing physician. Plan - Discharge Summary Discharge Rx Participant: Yes New Discharge Prescriptions: New Amoxic-Pot Clav 875-125Mg [Augmentin 875-125] 1 each PO Q12HR #14 tab Nicotine 14Mg/24Hr Patch [Habitrol] 1 patch TRANSDERM DAILY #30 patch HYDROcodone/APAP 5-325MG [[place] 5-325] 2 each PO Q6HR PRN #20 tab PRN Reason: Moderate To Severe Pain hydrALAZINE HCL [Apresoline] 50 mg PO TID #90 tab Continue buPROPion XL [Wellbutrin XL] 150 mg PO QAM Ranitidine HCl 150 mg PO BID Lisinopril 40 mg PO QAM Budesonide-Formot 160-4.5 Mcg [Symbicort 160-4.5 Mcg Inhaler] 2 puff INHALATION RT-BID Albuterol Inhaler [Ventolin Hfa Inhaler] 1 - 2 puff INHALATION RT-QID PRN PRN Reason: Shortness Of Breath Albuterol Nebulized [Ventolin Nebulized] 2.5 mg INHALATION RT-QID PRN PRN Reason: sob ALPRAZolam [Xanax] 1 mg PO BID PRN PRN Reason: Anxiety HYDROcodone/APAP 7.5-325MG [[place] 7.5-325] 1 tab PO BID PRN PRN Reason: Pain Levothyroxine Sodium [Synthroid] 50 mcg PO QAM Loratadine [Claritin] 10 mg PO DAILY PRN PRN Reason: Allergy Symptoms Omeprazole [PriLOSEC] 20 mg PO DAILY Fluticasone Nasal [place] [Flonase Nasal [place]] 1 spray EA NOSTRIL DAILY Ibuprofen 400 mg PO ONCE PRN PRN Reason: Headache Discharge Medication List Albuterol Inhaler [Ventolin Hfa Inhaler] 1 - 2 puff INHALATION RT-QID PRN [History] Albuterol Nebulized [Ventolin Nebulized] 2.5 mg INHALATION RT-QID PRN 10/04/14 [ History] Budesonide-Formot 160-4.5 Mcg [Symbicort 160-4.5 Mcg Inhaler] 2 puff INHALATION RT-BID 10/04/14 [History] Lisinopril 40 mg PO QAM 10/04/14 [History] Ranitidine HCl 150 mg PO BID 10/04/14 [History] buPROPion XL [Wellbutrin XL] 150 mg PO QAM 10/04/14 [History] ALPRAZolam [Xanax] 1 mg PO BID PRN 07/14/17 [History] HYDROcodone/APAP 7.5-325MG [[place] 7.5-325] 1 tab PO BID PRN 07/14/17 [History] Levothyroxine Sodium [Synthroid] 50 mcg PO QAM 07/14/17 [History] Loratadine [Claritin] 10 mg PO DAILY PRN 07/14/17 [History] Omeprazole [PriLOSEC] 20 mg PO DAILY 07/14/17 [History] Fluticasone Nasal [place] [Flonase Nasal [place]] 1 spray EA NOSTRIL DAILY 11/16/17 [History] Ibuprofen 400 mg PO ONCE PRN 11/16/17 [History] Amoxic-Pot Clav 875-125Mg [Augmentin 875-125] 1 each PO Q12HR #14 tab 11/25/17 [ Rx] HYDROcodone/APAP 5-325MG [[place] 5-325] 2 each PO Q6HR PRN #20 tab 11/25/17 [Rx] Nicotine 14Mg/24Hr Patch [Habitrol] 1 patch TRANSDERM DAILY #30 patch 11/25/17 [ Rx] hydrALAZINE HCL [Apresoline] 50 mg PO TID #90 tab 11/25/17 [Rx] Follow up Appointment(s)/Referral(s): Parish Perez MD [STAFF PHYSICIAN] - 1 Week Patient Instructions/Handouts: Diverticulitis (GEN), Colostomy Care (DC), Colostomy Care (GEN) Activity/Diet/Wound Care/Special Instructions: Colostomy Care Instructions: Last appliance change 11.24.2017 Current colostomy care supplies: [employer] moldable flange #[id number] (three from the hospital) [facility][id number] (three from the hospital) Skin prep pads (12) Ostomy powder (1) Mr Shelton will have three pouching system changes for home use supplied by the hospital Mr Shelton also will be receiving sample supplies for ostomy care from [employer] and [employer] as requested. Mr Shelton to empty the pouch when 1/3 to 1/2 full Change the pouching system every 3-5 days Home care please arrange with Mr Shelton his colostomy care supplies from [employer] prior to discharging from services. (requesting disposable pouches and moldable flange system) Thank you [facility] - [phone] - delivered to bedside. Reinforce smoking sensation advice to stop smoking cigarettes No tub bath for six weeks. Shower daily. No lifting over 4pounds for the next 6 weeks. Monitor LUPE drain and record. May use ice packs to surgical site. No driving while taking narcotic for pain. Discharge Disposition: HOME WITH HOME HEALTH SERVICES
--- NOTE | 2017-11-25 13:43 | CDI ---
Last Revision, August 2017 Documentation Clarification Form Date: 11/24/2017 From: Pilar Bustos RN, CCDS Admit Date: 11/18/2017 8:57:00 AM Patient Name: Jack Shelton Visit Number: [id number] Discharge Date: ATTENTION: The Clinical Documentation Specialists (CDI) and [facility] Coding Staff appreciate your assistance in clarifying documentation. Please respond to the clarification below the line at the bottom and electronically sign. The CDI & [facility] Coding staff will review the response and follow-up if needed. Please note: Queries are made part of the Legal Health Record. If you have any questions, please contact the author of this message via ITS. Dr. Parish Perez During mobilization of the dilator there was a tear of the rectal stump is documented in the operative note . Patients Admitting Diagnosis: History of perforated diverticulitis, Incarcerated incisional and parastomal hernia Post-Operative Diagnosis: Adhesions, Incarcerated incisional hernia, Incarcerated parastomal hernia, Severe scarring of rectal stump Procedure performed: Repair of incarcerated incisional hernia, parastomal hernia , partial colectomy, omentectomy, takedown of splenic flexure History/Risk Factors: Perforated diverticulitis with colostomy insertion Clinical Indicators: Present for colostomy reversal There was a large incisional hernia located underneath the skin. the incarcerated hernia containing omentum. The rectal stump was quite scarred. Treatment: Colostomy left upper quadrant (reversal of the colostomy was not preformed) Zosyn IV Epidural ( pain control) Monitor Labs In order to accurately reflect this patients severity of illness, please clarify if the tear of the rectal stump is: An expected post-procedural or post-surgical condition; Integral to the procedure; Inherent to the procedure; An unexpected post-procedural or post-surgical condition related to surgical care, patient medical conditions; Other, please specify Unable to determine Please continue to document in your progress notes and discharge summary in order to capture severity of illness and risk of mortality. Include clinical findings that support your diagnosis. the rectal stump was fibrotic and scarred. This was a expected condition due to the patient's previous medical problems. MADDISOND
--- NOTE | 2017-11-25 14:50 | PN ---
PROGRESS NOTE DATE OF SERVICE: 11/25/2017. REASON FOR FOLLOWUP: Leukocytosis. INTERVAL HISTORY: The patient is afebrile. He is breathing comfortably. He did have in his colostomy bag. Denies having any chest pain. Breathing much improved. Occasional cough. EXAMINATION: Blood pressure 154/90 with a pulse of 93, temperature 97. He is 93% on room air. General description is a middle aged male up in the bed in no distress. Respiratory system unlabored breathing, clear to auscultation. No wheeze. Heart S1, S2. Regular rate and rhythm. Abdomen soft no tenderness. LABS: White count 8.6 with a BUN of 9, creatinine 0.74. DIAGNOSTIC IMPRESSION AND PLAN: Patient with leukocytosis which is multifactorial in this patient with parastomal and incisional incarcerated hernia status post repair of the same likely abdominal source. Overall improvement on Zosyn. Currently on oral Augmentin. Continue for about a week with close outpatient followup. MMODL / IJN: [id number] /
[2017-11-25] MEDS ORDERED: hydrALAZINE HCL 50 MG TAB PO SCH (16:00)
--- NOTE | 2017-11-25 18:20 | PN ---
PROGRESS NOTE CHIEF COMPLAINT: Status post ventral herniorrhaphy. HISTORY OF PRESENT ILLNESS: This gentleman is starting to pass fecal material into his colostomy. His liver enzymes are up, however, and there is no obvious source for this. PHYSICAL EXAMINATION: Skin color is normal. Head, ears, eyes, nose, mouth and throat are normal. The chest is clear. Cardiac exam is normal. There is some fecal material in his colostomy. IMPRESSION: 1. Status post ventral herniorrhaphy. 2. Chronic obstructive pulmonary disease. 3. Hypertension. 4. Elevated liver function studies. PLAN: Watch liver function as his diet and activity are increased; he may necessitate further evaluation. MMODL / IJN: [id number] /
== END 2017-11-25 15:41 | disposition home health service (06) | DRG 330 ==
LOC: 2ORWHC 08:57 → 3SUR 15:52
PROVIDERS: ADMIT Surgery; ATTEND Surgery
PROC: 0DN80ZZ Release Small Intestine, Open Approach (ICD-10-PCS; 2017-11-18)
PROC: 0D1L0Z4 Bypass Transverse Colon to Cutaneous, Open Approach (ICD-10-PCS; principal; 2017-11-18 10:55)
PROC: 0DBU0ZZ Excision of Omentum, Open Approach (ICD-10-PCS; principal; 2017-11-18 10:55)
PROC: 0WQF0ZZ Repair Abdominal Wall, Open Approach (ICD-10-PCS; principal; 2017-11-18 10:55)
PROC: 0DBE0ZZ Excision of Large Intestine, Open Approach (ICD-10-PCS; principal; 2017-11-18 10:55)
DX: Z43.3 Encounter for attention to colostomy (principal); K43.0 Incisional hernia with obstruction, without gangrene; E66.01 Morbid (severe) obesity due to excess calories; K43.3 Parastomal hernia with obstruction, without gangrene; K66.0 Peritoneal adhesions (postprocedural) (postinfection); K62.89 Other specified diseases of anus and rectum; J44.9 Chronic obstructive pulmonary disease, unspecified; K21.9 Gastro-esophageal reflux disease without esophagitis; I10 Essential (primary) hypertension; G47.33 Obstructive sleep apnea (adult) (pediatric); E03.9 Hypothyroidism, unspecified; F32.9 Major depressive disorder, single episode, unspecified; F41.9 Anxiety disorder, unspecified; G47.10 Hypersomnia, unspecified; R09.02 Hypoxemia; M54.9 Dorsalgia, unspecified; J30.2 Other seasonal allergic rhinitis; D72.829 Elevated white blood cell count, unspecified; R31.9 Hematuria, unspecified; F17.210 Nicotine dependence, cigarettes, uncomplicated; Z53.8 Procedure and treatment not carried out for other reasons; Z68.36 Body mass index [BMI] 36.0-36.9, adult; Z79.51 Long term (current) use of inhaled steroids; Z79.899 Other long term (current) drug therapy; Z86.14 Personal history of Methicillin resistant Staphylococcus aureus infection; Z87.01 Personal history of pneumonia (recurrent); Z91.030 Bee allergy status; Z88.8 Allergy status to other drugs, medicaments and biological substances; Z91.048 Other nonmedicinal substance allergy status
CPT/HCPCS: 71045; 80048; 80053; 81001; 85025; 86850; 86900; 86901; 87040; 87070; 87086; 87205; 88302; 88304; 88305; 94640

== ENCOUNTER → 2018-06-04 | Outpatient (CLI) | payer MEDICARE, OTHER ==
--- NOTE | 2018-06-04 15:08 | CT ---
EXAMINATION TYPE: CT abdomen pelvis w con DATE OF EXAM: 06/04/2018 COMPARISON: CT abdomen pelvis October 04, 2014 HISTORY: Left lower quadrant pain and swelling CT DLP: 1387 mGycm, Automated Exposure Control for Dose Reduction was Utilized. CONTRAST: CT scan of the abdomen and pelvis is performed with oral and with IV Contrast, patient injected with 100 mL of Isovue 300. FINDINGS: LUNG BASES: There is 2 to 3 mm nodule right middle lobe axial image 2. There is posterior linear atel ectasis and/or scarring near diaphragm LIVER/GB: Gallbladder is somewhat contracted on current study. There is however distended stomach not ed. PANCREAS: No significant abnormality is seen. SPLEEN: No significant abnormality is seen. ADRENALS: No significant abnormality is seen. KIDNEYS: No significant abnormality is seen. BOWEL: There is surgical change from partial colectomy with rectal pouch remnant redemonstrated. Oral contrast reaches level of the left lower quadrant hernia defect. There is redundant nondilated contr ast-filled bowel at hernia defect. Superior to this there is left upper to mid abdominal colostomy. O ral contrast does not reach terminal ileum level making evaluation suboptimal. Surgical sutures from appendectomy are seen at base of cecum. PROSTATE/SEMINAL VESICLES: No gross abnormality seen. LYMPH NODES: No greater than 1cm abdominal or pelvic lymph nodes are appreciated. OSSEOUS STRUCTURES: Moderate to severe disc space narrowing with endplate sclerosis at L5-S1 level wi th mild to moderate spurring is present. Posterior spur disc complex effacing anterior thecal sac at this level. OTHER: There is more prominent vertical scar in the midline of the mid to lower abdomen. Portion of f illed bowel extends into scar coronal image 8. No suspicious dilatation is seen to suggest obstructio n at this level IMPRESSION: Below the left mid abdominal colostomy there is redemonstration of ventral wall hernia no w containing fairly moderate length segment of nondilated small bowel loops. No suspicious obstructio n is evident.
== END | disposition home or self-care (01) ==
LOC: RADCTMAIN 12:41
PROVIDERS: ATTEND Family Medicine
DX: K43.9 Ventral hernia without obstruction or gangrene (principal); Z93.3 Colostomy status
CPT/HCPCS: 74177; Q9967

== ENCOUNTER 2018-09-12 09:28 | Inpatient (IN) | payer MEDICARE, OTHER ==
[2018-09-12] MEDS ORDERED: DEXAMETHASONE SOD PHOSPHATE 10 MG/ML 1 ML VIAL IV STA ×2 (09:46→10:50)
[2018-09-12] MEDS ORDERED: AMPICILLIN-SULBACTAM 3 GM in SODIUM CHLORIDE 0.9% 100 ML IVPB STA (09:58)
--- NOTE | 2018-09-12 10:16 | ED ---
General Adult HPI - General Chief complaint: ENT Stated complaint: Throat Swelling Source: patient Mode of arrival: ambulatory Limitations: no limitations - Related Data Home Medications Medication Instructions Recorded Confirmed Albuterol Inhaler [Ventolin Hfa 1 - 2 puff INHALATION RT-QID PRN 10/04/14 Inhaler] Albuterol Nebulized [Ventolin 2.5 mg INHALATION RT-QID PRN 10/04/14 09/12/18 Nebulized] Budesonide-Formot 160-4.5 Mcg 2 puff INHALATION RT-BID 10/04/14 09/12/18 [Symbicort 160-4.5 Mcg Inhaler] Lisinopril 40 mg PO QAM 10/04/14 09/12/18 buPROPion XL [Wellbutrin XL] 150 mg PO QAM 10/04/14 09/12/18 HYDROcodone/APAP 7.5-325MG [[place] 1 tab PO TID 07/14/17 09/12/18 7.5-325] Levothyroxine Sodium [Synthroid] 50 mcg PO QAM 07/14/17 09/12/18 ALPRAZolam [Xanax] 0.5 - 1 mg PO DAILY PRN 09/12/18 09/12/18 Tiotropium Mccr[place] [Spiriva 1 spray INHALATION RT-DAILY 09/12/18 09/12/18 Respimat] Previous Rx's Medication Instructions Recorded hydrALAZINE HCL [Apresoline] 50 mg PO TID #90 tab 11/25/17 Allergies Allergy/AdvReac Type Severity Reaction Status Date / Time bee pollen Allergy Severe Swelling Verified 09/12/18 10:17 tiotropium Allergy Unknown States Verified 09/12/18 10:17 [From Spiriva with Breathing HandiHaler] worse. hydromorphone [From Dilaudid] AdvReac VERY MEAN Verified 09/12/18 10:17 COLOPLAST BRAND COLOSCOPY BAG AdvReac Rash/Hives Uncoded 09/12/18 09:37 Review of Systems ROS Statement: Those systems with pertinent positive or pertinent negative responses have been documented in the HPI. ROS Other: All systems not noted in ROS Statement are negative. Past Medical History Past Medical History: Asthma, COPD, GERD/Reflux, Hypertension, Pneumonia, Skin Disorder, Sleep Apnea/CPAP/BIPAP, Thyroid Disorder Additional Past Medical History / Comment(s): HX OF DIVERTICULITIS, PERFORATED COLON DURING COLONOSCOPY (2010) - HAS COLOSTOMY., SKIN BREAKDOWN AROUND STOMA., INCISIONAL AND STOMA HERNIA., HX OF HEART MURMUR & ASTHMA A CHILD. , SOB WITH STAIRS., BACK PAIN , UNABLE TO STAND FOR LONG PERIODS., USES SLEEP APNEA MACHINE. History of Any Multi-Drug Resistant Organisms: MRSA Date of last positivie culture/infection: 2010 MDRO Source:: abdominal incision Past Surgical History: Bowel Resection Additional Past Surgical History / Comment(s): colostomy for ruptured diverticulitis in 2011, colonsocopy, WRIST SURGERY. Past Anesthesia/Blood Transfusion Reactions: No Reported Reaction Additional Past Anesthesia/Blood Transfusion Reaction / Comment(s): . Past Psychological History: Anxiety, Depression Smoking Status: Current every day smoker Past Alcohol Use History: None Reported Past Drug Use History: Marijuana - Past Family History Mother Family Medical History: Cancer Sister(s) Family Medical History: Cancer Mother Sister(s) Family Medical History: Cancer General Exam Limitations: no limitations Course Vital Signs 09/12/18 09:34 Temperature 98.9 F Pulse Rate 105 H Respiratory 18 Rate Blood Pressure 126/81 O2 Sat by Pulse 95 Oximetry Medical Decision Making - Medical Decision Making Dictation was produced using [employer] dictation software. please excuse any grammatical, word or spelling errors. Chief Complaint: 53-year-old male past medical history of COPD, hypertension, pneumonia presents with sore throat and neck pain. History of Present Illness: 53-year-old male presents with chief complaint of sore throat and neck pain. Patient states he has difficulty swallowing. He feels that his voice is raspy. States she's been having dental pain for approximately 4 days. Patient was told to come here to the emergency department by family member. Patient does report having several symptoms of chills. However does not feel febrile. Patient denies any other pain anywhere else on his body. He feels as though the pain started in his throat and is moving down into his chest. The ROS documented in this emergency department record has been reviewed and confirmed by me. Those systems with pertinent positive or negative responses have been documented in the HPI. All other systems are other negative and/or noncontributory. PHYSICAL EXAM: General Impression: Alert and oriented x3, noisy breathing, no stridor, no drooling HEENT: Normocephalic atraumatic, extra-ocular movements intact, pupils equal and reactive to light bilaterally, dry mucous membranes, tenderness to the anterior neck worse on the left, melena body score of 4 Cardiovascular: Heart regular rate and rhythm, S1&S2 audible, no murmurs, rubs or gallops Chest: Bilateral lung rhonchi Abdomen: Bowel sounds present, abdomen soft, non-tender, non-distended, no organomegaly Musculoskeletal: Pulses present and equal in all extremities, no peripheral edema Motor: no focal deficits noted Neurological: CN II-XII grossly intact, no focal motor or sensory deficits noted Skin: Intact with no visualized rashes ED course: 53-year-old male presents with sore throat and neck pain. Physical examination shows a widened neck. There is some concern of upper airway optimized. Patient moves resuscitation bay vital signs upon arrival shows heart rate of 105. There is some concern that this may represent infectious etiology. Alonzo's angina and prevertebral abscess are other differential. ENT was called right away. Bladder next x-ray shows pain airway without any enlarged epiglottis.Leukocytosis of 19.2, metabolic panel is unremarkable. Influenza and rapid strep tests are unremarkable. Soft tissue neck CT shows left parapharyngeal space abscess measuring 3 x 2 x 3 cm at the level of the left piriform sinus. There is mass effect upon the airway from [id number] with narrowing of the airway at this level of 7.5 mm. Soft tissue neck x-ray which was performed shows thickening of the epiglottis currently for epiglottitis. Patient was evaluated by ENT recommend patient be admitted to intensive care unit with Decadron and ceftriaxone. Discussed patient case with Dr. David who is aware of patient and is agreeable with disposition. She reevaluated found to be in stable medical condition. Patient' s airway has not acutely worsened. This point I don't believe intubation is indicated however he will be placed in the intensive care unit setting. EKG Interpretation: A 12 lead EKG was obtained. It was interpreted by myself and attending physician. There is a P wave before every QRS complex. Rate is 101. Rhythm is sinus tachycardia, AL interval 146, QRS 82, QTc 435 T is not prolonged. No ST segment depression or elevation. Overall, this EKG is unremarkable - Lab Data Result diagrams: 09/12/18 09:54 09/12/18 09:54 Lab Results 09/12/18 09/12/18 09/12/18 Range/Units 09:54 09:54 09:54 WBC 19.2 H (3.8-10.6) k/uL RBC 4.73 (4.30-5.90) m/uL Hgb 15.2 (13.0-17.5) gm/dL Hct 44.8 (39.0-53.0) % MCV 94.7 (80.0-100.0) fL MCH 32.2 (25.0-35.0) pg MCHC 34.0 (31.0-37.0) g/dL RDW 13.3 (11.5-15.5) % Plt Count 231 (150-450) k/uL Neutrophils % 81 % Lymphocytes % 9 % Monocytes % 7 % Eosinophils % 1 % Basophils % 0 % Neutrophils # 15.6 H (1.3-7.7) k/uL Lymphocytes # 1.8 (1.0-4.8) k/uL Monocytes # 1.3 H (0-1.0) k/uL Eosinophils # 0.2 (0-0.7) k/uL Basophils # 0.0 (0-0.2) k/uL Sodium 138 (137-145) mmol/L Potassium 5.0 (3.5-5.1) mmol/L Chloride 105 (98-107) mmol/L Carbon Dioxide 23 (22-30) mmol/L Anion Gap 10 mmol/L BUN 14 (9-20) mg/dL Creatinine 0.77 (0.66-1.25) mg/dL Est GFR (CKD-EPI)AfAm >90 (>60 ml/min/1.73 sqM) Est GFR (CKD-EPI)NonAf >90 (>60 ml/min/1.73 sqM) Glucose 108 H (74-99) mg/dL Calcium 9.2 (8.4-10.2) mg/dL Influenza Type A RNA (Not Detectd) Influenza Type B (PCR) (Not Detectd) Group A Strep Rapid Negative (Negative) 09/12/18 Range/Units 10:40 WBC (3.8-10.6) k/uL RBC (4.30-5.90) m/uL Hgb (13.0-17.5) gm/dL Hct (39.0-53.0) % MCV (80.0-100.0) fL MCH (25.0-35.0) pg MCHC (31.0-37.0) g/dL RDW (11.5-15.5) % Plt Count (150-450) k/uL Neutrophils % % Lymphocytes % % Monocytes % % Eosinophils % % Basophils % % Neutrophils # (1.3-7.7) k/uL Lymphocytes # (1.0-4.8) k/uL Monocytes # (0-1.0) k/uL Eosinophils # (0-0.7) k/uL Basophils # (0-0.2) k/uL Sodium (137-145) mmol/L Potassium (3.5-5.1) mmol/L Chloride (98-107) mmol/L Carbon Dioxide (22-30) mmol/L Anion Gap mmol/L BUN (9-20) mg/dL Creatinine (0.66-1.25) mg/dL Est GFR (CKD-EPI)AfAm (>60 ml/min/1.73 sqM) Est GFR (CKD-EPI)NonAf (>60 ml/min/1.73 sqM) Glucose (74-99) mg/dL Calcium (8.4-10.2) mg/dL Influenza Type A RNA Not Detected (Not Detectd) Influenza Type B (PCR) Not Detected (Not Detectd) Group A Strep Rapid (Negative) Disposition Clinical Impression: Supraglottic abscess Disposition: ADMITTED IP TO THIS [facility] Condition: Critical Referrals: Shivam Vyas MD [Primary Care Provider] - 1-2 days Decision Time: 12:24
--- NOTE | 2018-09-12 10:21 | XR ---
EXAMINATION TYPE: XR soft tissue neck DATE OF EXAM: 09/12/2018 COMPARISON: NONE HISTORY: sore throat TECHNIQUE: 2 views of the soft tissues of the neck are submitted. FINDINGS: The airway is patent. There is thickening of the epiglottis. Correlate for epiglottitis. Re tropharyngeal soft tissues are within normal limits. No evidence for radiopaque foreign body. IMPRESSION: There is thickening of the epiglottis. Correlate for epiglottitis.
[2018-09-12 10:31] LABS: Basophils % (A) 0 %; Eosinophils # (A) 0.2 k/uL (0-0.7); Eosinophils % (A) 1 %; HCT 44.8 % (39.0-53.0); HGB 15.2 gm/dL (13.0-17.5); Lymphocytes # (A) 1.8 k/uL (1.0-4.8); Lymphocytes % (A) 9 %; MCH 32.2 pg (25.0-35.0); MCV 94.7 fL (80.0-100.0); Monocytes # (A) 1.3 k/uL (0-1.0); Monocytes % (A) 7 %; Neutrophils # (A) 15.6 k/uL (1.3-7.7); Neutrophils % (A) 81 %; Platelet Count 231 k/uL (150-450); RBC 4.73 m/uL (4.30-5.90); RDW 13.3 % (11.5-15.5); WBC 19.2 k/uL (3.8-10.6)
[2018-09-12 10:39] LABS: Anion Gap 10 mmol/L; Blood Urea Nitrogen 14 mg/dL (9-20); Calcium 9.2 mg/dL (8.4-10.2); Carbon Dioxide 23 mmol/L (22-30); Chloride 105 mmol/L (98-107); Glucose 108 mg/dL (74-99); Sodium 138 mmol/L (137-145)
[2018-09-12] MEDS ORDERED: CEFUROXIME 1,500 MG in SODIUM CHLORIDE 0.9% 100 ML IVPB STA (10:53)
--- NOTE | 2018-09-12 11:33 | CT ---
EXAMINATION TYPE: CT soft tissue neck w con DATE OF EXAM: 09/12/2018 COMPARISON: None HISTORY: Throat swelling CT DLP: 319.8 mGycm CONTRAST: CT scan of the neck is performed with IV Contrast, patient injected with 100 mL of Isovue 300. Contrast enhanced CT of the neck was performed from the skull base through the lung apices. AIRWAY: Left parapharyngeal space abscess measuring 3.3 x 2.6 x 3.3 cm at the level of the left pirif orm sinus. There is mass effect upon the airway from left to right with narrowing of the airway at th is level of 7.5 mm. There is distention of the right piriform sinus. Thickening of the epiglottis is noted felt to be reactive in nature. SALIVARY GLANDS: The submandibular and parotid glands are free of mass or inflammatory process. THYROID GLAND: No nodules or masses seen. LYMPH NODES: No adenopathy seen greater than 1cm. LUNG APICES: No nodule or mass is seen. OTHER: Vascular structures are patent. No significant degenerative change of the cervical spine. N o abscess seen. IMPRESSION: Left parapharyngeal space abscess measuring 3.3 x 2.6 x 3.3 cm at the level of the left piriform sinu s. There is mass effect upon the airway from left to right with narrowing of the airway at this level of 7.5 mm.
[2018-09-12] MEDS ORDERED: NALOXONE 0.4 MG/ML 1 ML VIAL IV PRN (12:17)
[2018-09-12] MEDS ORDERED: ACETAMINOPHEN TAB 325 MG TAB PO PRN (12:17)
[2018-09-12 13:38] LABS: Glucose,Whole Blood 155 mg/dL (75-99)
[2018-09-12] MEDS: SODIUM CHLORIDE 0.9% 1,000 ML IV SCH ×2 (13:44→23:00)
[2018-09-12 14:10] VITALS: BMI 34.8
[2018-09-12] MEDS ORDERED: DEXAMETHASONE SOD PHOSPHATE 4 MG/ML 1 ML VIAL IV PRN (14:32)
--- NOTE | 2018-09-12 14:39 | CONS ---
CONSULTATION REASON FOR CONSULTATION: Sore throat, check airway. HISTORY: This is a 53-year-old white male who presented to the ER with a 4-day history of sore throat and left neck pain. This has been progressively worsening with difficulty with swallowing also. He has had no fever or chills at home. He thought he might have been having some reaction to a medication, therefore, tried some Motrin and Benadryl over the last 2 days, but this did not help with his symptoms. He has had dysphagia and a little bit of hoarseness, but no stridor or respiratory difficulty overall otherwise. He did have a soft tissue neck x-ray which was read as having some thickening of the epiglottis. He has not had symptoms like this in the past. PAST MEDICAL HISTORY: Positive for diverticulitis with colon perforation from colonoscopy, heart murmur and asthma as a child. Back pain. Sleep apnea. MRSA. PAST SURGERY: Bowel surgery, colostomy, wrist surgery. MEDICATIONS: Current medications are albuterol, Symbicort, lisinopril, Ranitidine, Wellbutrin, Xanax, [place], Synthroid, Claritin, Prilosec and Flonase, ibuprofen. ALLERGIES: BEE POLLEN, TIOTROPIUM, HYDROMORPHONE. SOCIAL HISTORY: He does smoke and drink alcohol. FAMILY HISTORY: Positive for cancer. REVIEW OF SYSTEMS: Noncontributory other than as above. PHYSICAL EXAM: VITAL SIGNS: Temperature 98.9, pulse 105, respiratory rate 18, blood pressure 126/81, oxygen saturation 95% on room air. GENERAL: Well-developed adult white male in no acute distress. He has slight hoarseness. No stridor. Does tolerate his own secretions, although on occasion he will spit some saliva into a basin. HEENT: HEAD normocephalic, atraumatic. Ears bilaterally canals are clear. Tympanic membranes unremarkable and mobile. Nose shows minimal yellow drainage in both nasal cavities with mild nasal congestion bilaterally. Oral cavity shows some teeth missing. No tenderness over the teeth at all or erythema of the gingiva noted focally. No trismus. Oropharynx is unremarkable with no erythema or edema. Hypopharynx and larynx exam with flexible laryngoscopy shows diffuse moderate edema and slight erythema of the epiglottis. There is slight edema of the left aryepiglottic fold. The vocal cords are well visualized and mobile with no abnormal masses noted. NECK: Supple. The left mid jugular chain nodes pressure 1.5-2 cm, which is soft and mobile but there is tenderness noted. No fluctuance noted. Again, no stridor is noted. X-RAY: Report as noted above. LABORATORY DATA: Labs white blood cell count [id number], otherwise with left shift. Rapid strep screen is negative. ASSESSMENT: Acute supraglottitis. PLAN: The patient will be admitted to the hospitalist's service including admission in the ICU for airway observation. He did have a dose of Unasyn already and will be placed on ceftriaxone which was ordered as well as had a dose of Decadron already, but will need to continue this also, which is another dose ordered. These medications need to be continued on a regular basis. The patient will be admitted in the hospitalist service with extensive healthcare or medical also monitoring. We will need to monitor closely for airway. If airway becomes worse, may need to be intubated for possible new tracheostomy. There is possibility that this could also be allergic reaction including to the lisinopril, although less likely but would hold this for now. CT scan of the neck has also been ordered for further evaluation including for the left neck which is likely lymphadenopathy. The patient will need to be monitored closely and be continued on the aggressive IV medications as noted above and prognosis currently is guarded. If you have any questions or concerns, please contact me. PROCEDURE NOTE: DIAGNOSIS: Sore throat and left neck pain. POSTOP DIAGNOSIS: Supraglottitis. PROCEDURE PERFORMED: Flexible laryngoscopy. PROCEDURE DESCRIPTION: Patient was in the hospital bed in the ER. Flexible laryngoscopy was performed through the right nasal cavity with a systematic evaluation of the right nasal cavity, nasopharynx, oropharynx, hypopharynx and larynx with the findings noted in the clinic consultation note. The laryngoscope was then withdrawn. The patient tolerated the procedure well with no complications. MMODL / IJN: [id number] /
--- NOTE | 2018-09-12 14:39 | CONS ---
CONSULTATION ADDENDUM: The above-noted consultation was all reviewed with Dr. Clifton and he will be consulting with the hospitalist and intensive care unit to have the patient admitted under their service for continued care. MMODL / IJN: [id number] /
[2018-09-12] MEDS: HYDROcodone/APAP 7.5-325MG 1 EACH TAB PO SCH ×4 (14:47→21:12)
[2018-09-12] MEDS ORDERED: ALBUTEROL NEBULIZED 2.5 MG/3 ML INHALATION PRN (15:42)
[2018-09-12] MEDS: AMPICILLIN-SULBACTAM 3 GM in SODIUM CHLORIDE 0.9% 100 ML IVPB SCH (16:30)
[2018-09-12] MEDS: hydrALAZINE HCL 50 MG TAB PO SCH ×2 (16:31→21:12)
[2018-09-12] MEDS: HEPARIN SODIUM,PORCINE 5,000 UNIT/ML 1 ML VIAL SQ SCH (16:31)
[2018-09-12] MEDS: ALPRAZolam 0.25 MG TAB PO SCH ×2 (16:32→21:12)
--- NOTE | 2018-09-12 16:32 | HP ---
HISTORY AND PHYSICAL CHIEF COMPLAINT: Difficulty swallowing due to left-sided swelling on the throat. HISTORY OF PRESENT ILLNESS: This is another admission for this 53-year-old white male. Several days ago he started developing sore throat on the left side and started to have progressively more swelling. The morning of admission, he woke up and had a hard time swallowing. He came to emergency room where he was found to have a left-sided parapharyngeal mass which was thought to be an abscess. He was seen by ENT and he was admitted for IV antibiotics and possible drainage. REVIEW OF SYSTEMS: He has had no confusion, cough, chest pain, abdominal pain, vomiting, diarrhea, melena, jaundice, etc. He has not had any chills and he has had no confusion. In the emergency room he had normal temperature. [place] [id number]. The remainder of his labs were unremarkable. CT suggested possible abscess. PAST MEDICAL HISTORY: Reveals he has a history of COPD, hypertension, depression, hypothyroidism and anxiety. He is a current every day smoker. PHYSICAL EXAM: Temperature 98.9 with a pulse of 105, respirations of 18 and blood pressure of 126/81 with a pulse ox 95. GENERAL: He appeared to be slightly overweight and in no acute distress. Skin color is normal. Skin is warm, dry. Lymph nodes not enlarged. Head, ears, eyes, nose, mouth, and throat were normal. Neck veins not distended. Thyroid not enlarged. Chest is clear. Cardiac exam is normal. Abdomen is soft, nontender. Extremities normal. Neurologically he is intact. He had some swelling and tenderness in the left side of the neck and oral exam was not done. IMPRESSION: 1. Left paraesophageal abscess or cellulitis. 2. Hypertension. 3. Chronic obstructive pulmonary disease. PLAN: 1. Bed rest. 2. IV fluids. 3. IV antibiotics. 4. IV steroids. 5. Consult with ENT and possibly interventional radiology. MMODL / IJN: [id number] /
[2018-09-12 18:37] LABS: Glucose,Whole Blood 185 mg/dL (75-99)
[2018-09-12] MEDS: SYMBICORT 160-4.5 MCG INHALER INHALATION SCH (20:54)
[2018-09-12] MEDS: DEXAMETHASONE SOD PHOSPHATE 4 MG/ML 1 ML VIAL IV SCH (21:47)
[2018-09-12] MEDS ORDERED: MIDAZOLAM 1 MG/ML 5 ML VIAL ONE (22:07)
[2018-09-12] MEDS ORDERED: PROPOFOL 10 MG/ML 20 ML VIAL IV ONE (22:07)
[2018-09-12] MEDS ORDERED: SUCCINYLCHOLINE CHLORIDE VIAL 200 MG/10 ML VIAL IV ONE (22:07)
--- NOTE | 2018-09-12 22:12 | PN ---
PROGRESS NOTE DATE OF SERVICE: 09/12/2018. HISTORY: The patient had a CT scan this afternoon which was read as having an approximately 3 cm abscess in the left parapharyngeal space with no particular etiology. I reviewed the report with the radiologist on-call, Dr. Rowan, although he was not the initial reading radiologist. He felt this would be amenable to external approach as it was more a lateral abscess than medial and not near the mucosal surface, although there is some mass effect with this and felt to be secondary mucosal edema. The patient has continued to be stable with no stridor and just slight coarseness. He is having no respiratory difficulty. His vital signs have been stable. He has been maintained on Unasyn which be appropriate given the present diagnosis as well as continues to be on steroids. I discussed this further with Dr. Rowan and he felt CT-guided needle aspiration with guidewire and drain placement would be appropriate, however, this was not available this evening. It was felt they could do this in the department tomorrow. Therefore, I have discussed this with the patient and we decided to proceed with attempted needle aspiration at bedside. The patient was agreeable to this. I did review the indications, alternatives, risks and benefits of the procedure with the patient with risks including, but not inclusive of the risks of local anesthesia, bleeding, infection, worsening swelling, airway compromise, perforation of viscus. The patient understands these risks and agreed to proceed. PROCEDURE: The patient was prepped and draped in usual aseptic fashion. Next, 1% lidocaine with 1:100,000 epinephrine was infused subcutaneously, anterior lateral neck inferior to the submandibular gland at the level of the hyoid bone and anterior to sternocleidomastoid muscle. Needle aspiration utilizing a 23-gauge needle was then performed. There was some serosanguineous drainage recovered, although no luis antonio purulence. This was cultured. A secondary pass was also performed with no further aspirate. The amount of drainage recovered was approximately 1 mL. The patient tolerated this well with no complication. Excellent hemostasis and no swelling. Sterile bandage was placed. We will proceed with ordering a CT-guided fine-needle aspiration with drain placement for tomorrow morning as well as oral surgery consultation to rule out a odontogenic source for the infection. The patient does understand this. He still will be maintained in the ICU for airway observation, although again is quite stable at this point. If the above-noted procedures are not successful, then may still need open procedure, however, this would itself carry risk also, therefore will attempt to drain this more conservatively with image guidance. MMODL / IJN: [id number] /
--- NOTE | 2018-09-12 22:33 | XR ---
EXAMINATION TYPE: XR chest 1V portable DATE OF EXAM: 09/12/2018 COMPARISON: 11/19/2017 HISTORY: Check tube placement TECHNIQUE: Single frontal view of the chest is obtained. FINDINGS: Endotracheal tube is 3.5 cm from the ana. Nasogastric tube is in good position. There i s no heart failure. There are mild pulmonary interstitial densities. There are chest leads. IMPRESSION: Tubing appears in good position. No heart failure.
[2018-09-12] MEDS: PROPOFOL 1,000 MG in EMPTY BAG 1 BAG IV SCH (23:30)
[2018-09-12 23:41] LABS: ABG Base Excess -2.6 mmol/L; ABG HCO3 24 mmol/L (21-25); ABG PCO2 50 mmHg (35-45); ABG PH 7.29 (7.35-7.45); ABG PO2 331 mmHg (83-108); ABG TCO2 26 mmol/L (19-24)
[2018-09-12 23:52] LABS: Glucose,Whole Blood 149 mg/dL (75-99)
[2018-09-12] MEDS: IPRATROPIUM-ALBUTEROL 3 ML NEB INHALATION SCH (23:56)
[2018-09-13] MEDS ORDERED: fentaNYL (PF) 2,500 MCG in SODIUM CHLORIDE 0.9% 200 ML IV SCH ×2
--- NOTE | 2018-09-13 00:48 | PN ---
PROGRESS NOTE HISTORY: The nursing staff had notified me that the patient had felt as though his breathing had become worse and therefore I had her summon the anesthesiologist and post acute care nurse practitioner to proceed with intubation as there was known airway edema even on admission and it may be that the abscess was progressing. The patient did not have any immediate difficulties after the needle aspiration. He was able to be intubated with the glide scope by the anesthesiologist. Visualization of the epiglottis showed a little bit less edema than in the ER, however, the false vocal cord area had more edema than previous. He was able to be intubated without difficulty and was placed on the ventilator. His neck exam was mildly firmer on the left than earlier this evening, but only minimally. There is no fluctuance or erythema. No ecchymosis. The patient is stable on the ventilator. There would be consideration of repeat CT tonight, although due to the fact that he is going to undergo drainage in the morning and there would be risk of transportation to the CT department and back as well as manipulation in the CT department with risk of extubation, it was elected to hold off on any further CTs tonight as this will be drained tomorrow morning by Interventional Radiology. I did attempt to notify his also and left a message as to his updated status. We will continue the IV antibiotics and steroids at this point also. MMODL / IJN: [id number] /
[2018-09-13] MEDS: AMPICILLIN-SULBACTAM 3 GM in SODIUM CHLORIDE 0.9% 100 ML IVPB SCH ×2 (00:53→10:31)
[2018-09-13] MEDS: CHLORHEXIDINE GLUCONATE 15 ML CUP MUCOUS MEM SCH ×2 (00:53→10:32)
[2018-09-13] MEDS: HEPARIN SODIUM,PORCINE 5,000 UNIT/ML 1 ML VIAL SQ SCH ×2 (00:54→10:32)
[2018-09-13] MEDS: INSULIN ASPART 100 UNIT/ML 1 ML 10 ML VIAL SQ SCH ×2 (00:55→06:44)
[2018-09-13] MEDS: DEXAMETHASONE SOD PHOSPHATE 4 MG/ML 1 ML VIAL IV SCH ×3 (01:04→11:31)
[2018-09-13 01:39] LABS: Appearance,Urine Cloudy (Clear); Bacteria,Urine Rare /hpf; Bilirubin,Urine Negative (Negative); Blood,Urine Negative (Negative); Color,Urine Yellow; Glucose,Urine (UA) Negative (Negative); Hyaline Casts,Urine 33 /lpf (0-2); Ketones,Urine Negative (Negative); Leukocyte Esterase,Urine Negative (Negative); Mucus,Urine Rare /hpf; Nitrite,Urine Negative (Negative); Protein,Urine Trace (Negative); Urobilinogen,Urine <2.0 mg/dL (<2.0)
[2018-09-13] MEDS: IPRATROPIUM-ALBUTEROL 3 ML NEB INHALATION SCH ×3 (03:32→11:17)
[2018-09-13 04:45] LABS: ABG Base Excess -0.7 mmol/L; ABG HCO3 25 mmol/L (21-25); ABG PCO2 42 mmHg (35-45); ABG PH 7.38 (7.35-7.45); ABG PO2 88 mmHg (83-108); ABG TCO2 26 mmol/L (19-24)
[2018-09-13 05:01] LABS: Basophils % (A) 0 %; Eosinophils % (A) 0 %; HCT 42.6 % (39.0-53.0); HGB 13.5 gm/dL (13.0-17.5); Lymphocytes # (A) 1.1 k/uL (1.0-4.8); Lymphocytes % (A) 7 %; MCH 30.6 pg (25.0-35.0); MCHC 31.6 g/dL (31.0-37.0); MCV 96.9 fL (80.0-100.0); Mean Platelet Volume 7.7; Monocytes # (A) 0.5 k/uL (0-1.0); Monocytes % (A) 3 %; Neutrophils # (A) 14.9 k/uL (1.3-7.7); Neutrophils % (A) 89 %; Platelet Count 238 k/uL (150-450); RDW 13.1 % (11.5-15.5); WBC 16.7 k/uL (3.8-10.6)
[2018-09-13 05:28] LABS: Anion Gap 9 mmol/L; Blood Urea Nitrogen 20 mg/dL (9-20); Calcium 8.7 mg/dL (8.4-10.2); Carbon Dioxide 22 mmol/L (22-30); Chloride 107 mmol/L (98-107); Glucose 145 mg/dL (74-99); Magnesium 2.5 mg/dL (1.6-2.3); Potassium 4.6 mmol/L (3.5-5.1); Sodium 138 mmol/L (137-145)
[2018-09-13 06:09] LABS: Glucose,Whole Blood 160 mg/dL (75-99)
[2018-09-13] MEDS ORDERED: LEVOTHYROXINE 50 MCG TAB PO SCH (06:30)
[2018-09-13] MEDS: PROPOFOL 1,000 MG in EMPTY BAG 1 BAG IV SCH ×2 (06:44→10:40)
[2018-09-13] MEDS: SYMBICORT 160-4.5 MCG INHALER INHALATION SCH (07:18)
--- NOTE | 2018-09-13 07:39 | XR ---
EXAMINATION TYPE: XR chest 1V portable DATE OF EXAM: 09/13/2018 COMPARISON: 09/12/2018 HISTORY: Ventilatory dependent respiratory failure. TECHNIQUE: Single frontal view of the chest is obtained. FINDINGS: There is interstitial prominence throughout. Peripheral subsegmental atelectasis is noted. Cardiomediastinal silhouette is slightly enlarged. Endotracheal tube and enteric tube are unchanged in position. No sizable pneumothorax or pleural effusion. IMPRESSION: Similar diffuse interstitial prominence favored to relate to mild pulmonary edema althou gh atypical pneumonia is possible.
[2018-09-13] MEDS ORDERED: IPRATROPIUM 0.5 MG/2.5 ML NEBU INHALATION SCH (08:00)
[2018-09-13] MEDS ORDERED: PANTOPRAZOLE 40 MG/10 ML VIAL IV SCH (09:00)
[2018-09-13] MEDS ORDERED: LISINOPRIL 20 MG TAB PO SCH (09:00)
[2018-09-13] MEDS ORDERED: buPROPion XL 150 MG TAB.ER.24H PO SCH (09:00)
[2018-09-13] MEDS ORDERED: VANCOMYCIN IV PER PHARMACY 1 EACH MISC MISCELLANE PRN (09:35)
[2018-09-13] MEDS ORDERED: VANCOMYCIN 1,750 MG in SODIUM CHLORIDE 0.9% 500 ML 500 ML IVPB SCH (10:00)
[2018-09-13] MEDS: SODIUM CHLORIDE 0.9% 1,000 ML IV SCH (10:33)
[2018-09-13] MEDS: ALPRAZolam 0.25 MG TAB PO SCH (10:33)
[2018-09-13] MEDS: hydrALAZINE HCL 50 MG TAB PO SCH (10:34)
[2018-09-13] MEDS: HYDROcodone/APAP 7.5-325MG 1 EACH TAB PO SCH (10:34)
--- NOTE | 2018-09-13 11:06 | US ---
EXAMINATION TYPE: US thyroid st tissue head/neck DATE OF EXAM: 09/13/2018 COMPARISON: CT 09/13/2018 CLINICAL HISTORY: MASS. Cystic area visualized left neck measuring 3.0 x 1.9 x 2.6 cm. Nurse stated [facility] was [facility] to have this area drained via CT IMPRESSION: 1. 2.6 x 3.0 x 1.9 cm hypoechoic area left neck. Findings can be compatible with abscess or hemorrhag e.
[2018-09-13 11:37] VITALS: PULSE 79
--- NOTE | 2018-09-13 11:38 | P.CNPUL ---
History of Present Illness Consult date: 09/13/18 Requesting physician: Shivam Vyas Reason for consult: other (Left parapharyngeal abscess and respiratory failure) Chief complaint: Throat swelling History of present illness: This is a 53-year-old white male with history of multiple medical problems including previous colonic rupture requiring colostomy, history of diverticulitis, history of multiple abdominal surgeries. COPD, hypertension, hypothyroidism, degenerative joint disease, patient presented to the ER yesterday with 4 day history of sore throat and left neck pain. Patient has also been complaining of difficulty swallowing. He was initially admitted with the impression of possible epiglottitis. However CT of the soft tissue of the neck showed a fairly good sized left parapharyngeal abscess. Patient was seen by ENT, attempts were made to drain the abscess however no success. Apparently overnight, the patient's clinical status deteriorated, and he required to be intubated. When I came in to see the patient this morning, according to the nurse that was some difficulty getting interventional radiology to do it at bedside with ultrasound guidance, and Dr. Garvey was notified, hence he felt it would be best to transfer the patient. I called the transplant team at [facility], and arranged for dressing the patient down to [facility]. Patient is already on antibiotics in the form of Unasyn and vancomycin, he is on mechanical ventilation, his ventilator settings were noted , and he is presently on 50% FiO2. Assist control rate of 20 tidal volume of 500 PEEP of 5. ABG showed a pO2 of 88 pCO2 of 42 pH of 7.38. His CBC showed leukocytosis with WBC count of 16.7 hemoglobin of 13.5. Basic metabolic profile and renal profile were normal. Chest x-ray showed pulmonary vasculature prominence, otherwise no significant abnormality noted. Ultrasound of the neck showed 2.63.01.9 cm hypoechoic area left neck compatible with abscess or hemorrhage. Patient is presently on mechanical ventilation, he is also on propofol, and on fentanyl drip. Hemodynamically stable, and in no distress. Review of Systems ROS unobtainable: due to endotracheal tube Past Medical History Past Medical History: Asthma, COPD, GERD/Reflux, Hypertension, Pneumonia, Skin Disorder, Sleep Apnea/CPAP/BIPAP, Thyroid Disorder Additional Past Medical History / Comment(s): HX OF DIVERTICULITIS, PERFORATED COLON DURING COLONOSCOPY (2010) - HAS COLOSTOMY., SKIN BREAKDOWN AROUND STOMA., INCISIONAL AND STOMA HERNIA., HX OF HEART MURMUR & ASTHMA A CHILD. , SOB WITH STAIRS., BACK PAIN , UNABLE TO STAND FOR LONG PERIODS., USES SLEEP APNEA MACHINE. History of Any Multi-Drug Resistant Organisms: MRSA Date of last positivie culture/infection: 2010 MDRO Source:: abdominal incision Past Surgical History: Bowel Resection Additional Past Surgical History / Comment(s): colostomy for ruptured diverticulitis in 2011, colonsocopy, WRIST SURGERY. Past Anesthesia/Blood Transfusion Reactions: No Reported Reaction Additional Past Anesthesia/Blood Transfusion Reaction / Comment(s): . Past Psychological History: Anxiety, Depression Smoking Status: Current every day smoker Past Alcohol Use History: None Reported Additional Past Alcohol Use History / Comment(s): SMOKES 1 PPD OR LESS. STARTED SMOKING AGE 8. Past Drug Use History: Marijuana Additional Drug Use History / Comment(s): occassional marijuana use - Past Family History Mother Family Medical History: Cancer Sister(s) Family Medical History: Cancer Mother Sister(s) Family Medical History: Cancer Medications and Allergies Home Medications Medication Instructions Recorded Confirmed Type Albuterol Inhaler [Ventolin Hfa 1 - 2 puff INHALATION RT-QID PRN 10/04/14 History Inhaler] Albuterol Nebulized [Ventolin 2.5 mg INHALATION RT-QID PRN 10/04/14 09/12/18 History Nebulized] Budesonide-Formot 160-4.5 Mcg 2 puff INHALATION RT-BID 10/04/14 09/12/18 History [Symbicort 160-4.5 Mcg Inhaler] Lisinopril 40 mg PO QAM 10/04/14 09/12/18 History buPROPion XL [Wellbutrin XL] 150 mg PO QAM 10/04/14 09/12/18 History HYDROcodone/APAP 7.5-325MG [[place] 1 tab PO TID 07/14/17 09/12/18 History 7.5-325] Levothyroxine Sodium [Synthroid] 50 mcg PO QAM 07/14/17 09/12/18 History hydrALAZINE HCL [Apresoline] 50 mg PO TID #90 tab 11/25/17 09/12/18 Rx ALPRAZolam [Xanax] 0.5 - 1 mg PO DAILY PRN 09/12/18 09/12/18 History Tiotropium [place] [Spiriva 1 spray INHALATION RT-DAILY 09/12/18 09/12/18 History Respimat] Allergies Allergy/AdvReac Type Severity Reaction Status Date / Time bee pollen Allergy Severe Swelling Verified 09/12/18 10:17 tiotropium Allergy Unknown States Verified 09/12/18 10:17 [From Spiriva with Breathing HandiHaler] worse. hydromorphone [From Dilaudid] AdvReac VERY MEAN Verified 09/12/18 10:17 COLOPLAST BRAND COLOSCOPY BAG AdvReac Rash/Hives Uncoded 09/12/18 09:37 Physical Exam Vitals: Vital Signs Temp Pulse Pulse Resp BP BP Pulse Ox 09/13/18 11:17 80 09/13/18 07:30 80 09/13/18 07:20 85 09/13/18 07:00 87 24 122/70 93 L 09/13/18 06:00 88 29 H 122/66 93 L 09/13/18 05:00 89 28 H 115/72 93 L 09/13/18 04:00 87 30 H 122/93 93 L 09/13/18 03:42 90 09/13/18 03:33 89 09/13/18 03:00 84 28 H 114/66 94 L 09/13/18 02:00 86 30 H 110/65 94 L 09/13/18 01:00 89 35 H 123/63 94 L 09/13/18 00:10 95 09/13/18 00:00 97.5 F L 99 34 H 129/89 96 09/12/18 23:58 100 09/12/18 23:30 99 29 H 119/67 97 09/12/18 23:00 105 H 26 H 154/86 97 09/12/18 22:30 112 H 22 161/125 94 L 09/12/18 22:00 99 17 129/78 93 L 09/12/18 21:00 96 28 H 134/79 95 09/12/18 20:00 96 25 H 137/84 92 L 09/12/18 19:30 99 18 137/84 93 L 09/12/18 19:00 96 30 H 141/62 89 L 09/12/18 18:30 96 14 141/62 92 L 09/12/18 18:00 101 H 12 138/73 92 L 09/12/18 17:30 96 9 L 138/73 92 L 09/12/18 17:00 91 18 143/85 91 L 09/12/18 16:30 90 15 143/85 93 L 09/12/18 16:00 98.5 F 93 12 139/78 92 L 09/12/18 15:30 96 12 139/78 93 L 09/12/18 15:00 100 14 115/83 90 L 09/12/18 14:42 98.1 F 96 13 115/83 91 L 09/12/18 13:30 156/86 09/12/18 13:04 98.1 F 92 18 115/83 93 L 09/12/18 13:00 97 18 146/86 95 09/12/18 12:30 98.2 F 110 H 18 140/76 97 09/12/18 12:00 110 H 21 143/86 96 09/12/18 11:30 101 H 16 141/73 96 Intake and Output 09/12/18 09/13/18 09/13/18 22:59 06:59 14:59 Intake Total 950 1000 166.572 Output Total 350 475 300 Balance 600 525 -133.428 Intake: IV 800 900 100 Ampicillin-Sulbactam 3 gm 100 In Sodium Chloride 0.9% 100 ml @ 200 mls/hr IVPB ONCE [facility] Rx#:[id number] Normal Saline 800 800 100 Intake, IV Titration 100 66.572 Amount Propofol 1,000 mg In 100 66.572 Empty Bag 1 bag @ Titrate IV .Q0M [facility] Rx#: [id number] Oral 150 Output: Gastric Drainage 250 Urine 350 475 50 Other: Voiding Method Urinal Indwelling Catheter # Voids 1 Weight 97.9 kg 98.6 kg Physical Exam: Revealed a 53-year-old white male on mechanical ventilation, sedated, in no distress. Head: Atraumatic, normocephalic. HEENT:[Neck is supple.] [Endotracheal tube is intact. There is left sided swelling noted, and tenderness on the left side just below the left mandibular angle. Chest: [Clear throughout, no crackles, no rhonchi, no wheezes.] Cardiac Exam: [Normal S1 and S2, no S3 gallop, no murmur.] Abdomen: [Multiple surgical scars are noted, colostomy is intact, large abdominal wall hernia noted in the left lower quadrant. Soft, nontender, no megaly, no rebound, no guarding, normal bowel sounds.] Extremities: [No clubbing, no edema, no cyanosis.] Neurological Exam: Cannot be assessed, patient is fully sedated on propofol drip. Extremities: No clubbing edema or cyanosis. Psychiatric: Could not be assessed. Results - Laboratory Findings CBC and BMP: 09/13/18 04:17 09/13/18 04:17 ABG ABG pH 7.38 (7.35-7.45) 09/13/18 04:30 ABG pCO2 42 mmHg (35-45) 09/13/18 04:30 ABG pO2 88 mmHg (83-108) 09/13/18 04:30 ABG O2 Saturation 97.0 % (94-97) 09/13/18 04:30 Abnormal lab findings: Abnormal Labs 09/12/18 09/12/18 09/12/18 09:54 09:54 13:35 WBC 19.2 H Neutrophils # 15.6 H Monocytes # 1.3 H ABG pH ABG pCO2 ABG pO2 ABG Total CO2 ABG O2 Saturation Glucose 108 H POC Glucose (mg/dL) 155 H Magnesium Urine Protein Urine Bacteria Hyaline Casts Urine Mucus 09/12/18 09/12/18 09/12/18 18:35 23:35 23:49 WBC Neutrophils # Monocytes # ABG pH 7.29 L ABG pCO2 50 H ABG pO2 331 H ABG Total CO2 26 H ABG O2 Saturation 100.0 H Glucose POC Glucose (mg/dL) 185 H 149 H Magnesium Urine Protein Urine Bacteria Hyaline Casts Urine Mucus 09/13/18 09/13/18 09/13/18 01:15 04:17 04:17 WBC 16.7 H Neutrophils # 14.9 H Monocytes # ABG pH ABG pCO2 ABG pO2 ABG Total CO2 ABG O2 Saturation Glucose 145 H POC Glucose (mg/dL) Magnesium 2.5 H Urine Protein Trace H Urine Bacteria Rare H Hyaline Casts 33 H Urine Mucus Rare H 09/13/18 09/13/18 04:30 06:08 WBC Neutrophils # Monocytes # ABG pH ABG pCO2 ABG pO2 ABG Total CO2 26 H ABG O2 Saturation Glucose POC Glucose (mg/dL) 160 H Magnesium Urine Protein Urine Bacteria Hyaline Casts Urine Mucus - Diagnostic Findings Chest x-ray: image reviewed (As noted in HPI) Additional studies: CT of the neck, ultrasound of the neck were all reviewed and results noted in my HPI. Assessment and Plan Assessment: Impression: 1 acute hypoxic respiratory failure secondary to left parapharyngeal abscess compromising the airway and displacement of the airway. Leading to impending respiratory failure, required intubation and mechanical ventilation. 2 acute left parapharyngeal abscess will definitely need surgical drainage. Dr. Garvey attempted to drain the abscess, he was unsuccessful, and he felt strongly that it would be best to transfer the patient to [facility]. 3 possible sepsis from parapharyngeal abscess. 4 history of COPD presently under control. Patient is on bronchodilators. 5 benign essential hypertension 6 previous bowel rupture requiring colostomy 7 left lower quadrant abdominal wall hernia 8 history of hypothyroidism 9 tobacco dependence syndrome. Recommendation: Adjusted the ventilator settings based on the ABG, broad- spectrum antibiotics were initiated including Unasyn and vancomycin, reviewed and discussed all the findings with the family at bedside, discussed the patient 's condition with the interventional radiologist, I also discussed his condition with the transfer team at [facility], and the ENT follow outpatient receptionist at [facility], we will definitely arrange for the patient be transferred to [facility] for surgical drainage of left parapharyngeal abscess and further treatment. Patient is critically ill, and we'll try to transfer him as soon as possible. Prognosis is guarded. Critical care time 55 minutes. Time with Patient: Greater than 30
[2018-09-13 11:40] VITALS: BP 108/64; RESP 23; TEMP 97.9
--- NOTE | 2018-09-13 12:28 | PN ---
PROGRESS NOTE Patient remains intubated on ventilator. We attempted to facilitate CT guided drain placement this morning but only the Interventional Radiologist was available but no community support specialist for this otherwise. Discussed the possibility of ultrasound-guided needle aspiration, but this would not facilitate drain placement which is likely necessary and the CT procedure would not be available until at least Thursday. With all these factors involved and discussing this further with Dr. Horowitz, it was elected to have the patient transferred to a tertiary care institution that could facilitate these, the drainage of this abscess in a more expedited fashion in order to have the patient more definitively be treated more quickly to decrease the length of intubation time. The intensive care unit has notified the patient's of this. I talked to her also at length this morning and reviewed all this with her today and she understands and is in agreement. She does have my cell phone number and will contact me if she has any questions further that I can answer for her. MMMIRNA / CULLENN: [id number] /
--- NOTE | 2018-09-14 17:44 | DS ---
DISCHARGE SUMMARY CHIEF COMPLAINT: Pain and swelling in the left side of the throat. HISTORY OF PRESENT ILLNESS AND PHYSICAL EXAM: Details of this man's history and physical can be found in the initial workup. LABORATORY STUDIES: While he was in the hospital he had laboratory studies, details of which can be found in the laboratory section of his chart. COURSE IN HOSPITAL: After admission he was placed on bedrest, started on intravenous fluids and he was kept in the Intensive Care unit. He was seen by intensive medicine and ear, nose and throat. During the night he started to have more and more swelling and his airway became compromised after which he was intubated. It was was the consensus opinion that he should be treated and transferred to a tertiary hospital and this was arranged on the . FINAL DIAGNOSES: 1. Parapharyngeal abscess. 2. Chronic obstructive pulmonary disease. 3. Colostomy. OPERATIONS: None. CONSULTATIONS: Intensive Medicine and ear, nose, and throat. He is improved. MMMIRNA / JUAN: [id number] /
== END 2018-09-13 12:53 | disposition short-term general hospital (02) | DRG 152 ==
LOC: EC 09:28 → 2SICU 12:18 → UNDODISIN 09-13 11:43
PROVIDERS: ADMIT Family Medicine; ATTEND Family Medicine
DX: J39.0 Retropharyngeal and parapharyngeal abscess (principal); J96.01 Acute respiratory failure with hypoxia; E03.9 Hypothyroidism, unspecified; F17.200 Nicotine dependence, unspecified, uncomplicated; G47.30 Sleep apnea, unspecified; I10 Essential (primary) hypertension; J44.9 Chronic obstructive pulmonary disease, unspecified; K08.89 Other specified disorders of teeth and supporting structures; K21.9 Gastro-esophageal reflux disease without esophagitis; M19.90 Unspecified osteoarthritis, unspecified site; F32.9 Major depressive disorder, single episode, unspecified; F41.9 Anxiety disorder, unspecified; K57.90 Diverticulosis of intestine, part unspecified, without perforation or abscess without bleeding; Z79.51 Long term (current) use of inhaled steroids; Z79.890 Hormone replacement therapy; Z79.899 Other long term (current) drug therapy; Z88.5 Allergy status to narcotic agent; Z91.030 Bee allergy status; Z93.3 Colostomy status; Z87.01 Personal history of pneumonia (recurrent); Z87.09 Personal history of other diseases of the respiratory system; Z86.14 Personal history of Methicillin resistant Staphylococcus aureus infection; Z90.49 Acquired absence of other specified parts of digestive tract; Z80.9 Family history of malignant neoplasm, unspecified
CPT/HCPCS: 36415; 36600; 70360; 70491; 71045; 76536; 80048; 81001; 82805; 83735; 84100; 85025; 87070; 87081; 87205; 87430; 87502; 93005; 94002; 94003; 94640; 96365; 96367; 96375; 99285

== ENCOUNTER 2018-11-29 20:10 | Inpatient (IN) | payer MEDICARE, OTHER ==
[2018-11-29] MEDS ORDERED: HYDROmorphone 0.5 MG/0.5 ML SYRINGE IVP STA (21:18)
--- NOTE | 2018-11-29 21:31 | ED ---
Abdominal Pain HPI - General Chief Complaint: Abdominal Pain Stated Complaint: Hernia Time Seen by Provider: 11/29/18 20:54 Source: patient Mode of arrival: ambulatory Limitations: no limitations - History of Present Illness Initial Comments: This patient is a 53-year-old man who is here complaining of left lower quadrant and generalized abdominal pain. The patient has a history of colostomy and approximate 2010 due to diverticulitis. He did have lysis of adhesions in November,. He states that for about the past 2 months he has been having more abdominal pain and was now seeing Dr. michael regarding the hernia that he has been adjacent to the ostomy. He states that over the course of the past few hours the pain has markedly increased. He does note that he has an appointment next week to see Dr. michael and they're considering a revision. MD Complaint: abdominal pain -: week(s) Location: diffuse, LLQ Radiation: none Severity: severe Quality: aching, fullness Consistency: constant Improves With: nothing Worsens With: nothing Associated Symptoms: nausea - Related Data Home Medications Medication Instructions Recorded Confirmed Albuterol Inhaler [Ventolin Hfa 1 - 2 puff INHALATION RT-QID PRN 10/04/14 11/29/18 Inhaler] Albuterol Nebulized [Ventolin 2.5 mg INHALATION RT-QID PRN 10/04/14 11/29/18 Nebulized] Budesonide-Formot 160-4.5 Mcg 2 puff INHALATION RT-BID 10/04/14 11/29/18 [Symbicort 160-4.5 Mcg Inhaler] Lisinopril 40 mg PO QAM 10/04/14 11/29/18 buPROPion XL [Wellbutrin XL] 150 mg PO QAM 10/04/14 11/29/18 HYDROcodone/APAP 7.5-325MG [[place] 1 tab PO TID 07/14/17 11/29/18 7.5-325] Levothyroxine Sodium [Synthroid] 50 mcg PO QAM 07/14/17 11/29/18 ALPRAZolam [Xanax] 0.5 - 1 mg PO DAILY PRN 09/12/18 11/29/18 Tiotropium [place] [Spiriva 1 spray INHALATION RT-DAILY 09/12/18 11/29/18 Respimat] Fluticasone Nasal [place] [Flonase 1 spray EA NOSTRIL DAILY 11/29/18 11/29/18 Nasal [place]] Loratadine [Claritin] 10 mg PO DAILY 11/29/18 11/29/18 Previous Rx's Medication Instructions Recorded hydrALAZINE HCL [Apresoline] 50 mg PO TID #90 tab 11/25/17 Allergies Allergy/AdvReac Type Severity Reaction Status Date / Time bee pollen Allergy Severe Swelling Verified 11/29/18 21:17 gabapentin [From Neurontin] Allergy Unknown Verified 11/29/18 21:17 hydromorphone [From Dilaudid] AdvReac VERY MEAN Verified 11/29/18 21:17 COLOPLAST BRAND COLOSCOPY BAG AdvReac Rash/Hives Uncoded 09/12/18 09:37 Review of Systems ROS Statement: Those systems with pertinent positive or pertinent negative responses have been documented in the HPI. ROS Other: All systems not noted in ROS Statement are negative. Constitutional: Denies: fever, chills Respiratory: Denies: cough, dyspnea Cardiovascular: Reports: edema (Chronic). Denies: chest pain, palpitations, syncope Gastrointestinal: Reports: as per HPI, abdominal pain, nausea. Denies: vomiting, diarrhea, constipation, melena, hematochezia Genitourinary: Denies: dysuria, hematuria Musculoskeletal: Denies: back pain Skin: Denies: rash Neurological: Denies: headache, weakness, numbness Past Medical History Past Medical History: Asthma, COPD, GERD/Reflux, Hypertension, Pneumonia, Skin Disorder, Sleep Apnea/CPAP/BIPAP, Thyroid Disorder Additional Past Medical History / Comment(s): HX OF DIVERTICULITIS, PERFORATED COLON DURING COLONOSCOPY (2010) - HAS COLOSTOMY., SKIN BREAKDOWN AROUND STOMA., INCISIONAL AND STOMA HERNIA., HX OF HEART MURMUR & ASTHMA A CHILD. , SOB WITH STAIRS., BACK PAIN , UNABLE TO STAND FOR LONG PERIODS., USES SLEEP APNEA SUZANNE E. History of Any Multi-Drug Resistant Organisms: MRSA Date of last positivie culture/infection: 2010 MDRO Source:: abdominal incision Past Surgical History: Bowel Resection Additional Past Surgical History / Comment(s): colostomy for ruptured diverticulitis in 2011, colonsocopy, WRIST SURGERY. Past Anesthesia/Blood Transfusion Reactions: No Reported Reaction Additional Past Anesthesia/Blood Transfusion Reaction / Comment(s): . Past Psychological History: Anxiety, Depression Smoking Status: Current every day smoker Past Alcohol Use History: None Reported Past Drug Use History: Marijuana - Past Family History Mother Family Medical History: Cancer Sister(s) Family Medical History: Cancer Mother Sister(s) Family Medical History: Cancer General Exam Limitations: no limitations General appearance: alert, in no apparent distress Head exam: Present: atraumatic, normocephalic Eye exam: Present: normal appearance. Absent: scleral icterus, conjunctival injection ENT exam: Present: normal oropharynx Respiratory exam: Present: normal lung sounds bilaterally. Absent: respiratory distress, wheezes, rales, rhonchi, stridor Cardiovascular Exam: Present: regular rate, normal rhythm, normal heart sounds. Absent: systolic murmur, diastolic murmur, rubs, gallop GI/Abdominal exam: Present: soft, distended, tenderness (Left lower quadrant), hyperactive bowel sounds, hernia, other (Patient has a hernia in the left lower quadrant adjacent to the ostomy. The ostomy bag is empty however the patient states she changed that just prior to coming to the hospital. There is only a small amount of gas but he states he has had stool and gas in the ostomy this evening. He had not noted any bloody material). Absent: guarding, rebound, rigid, mass, pulsatile mass Extremities exam: Present: normal inspection, normal capillary refill, pedal edema (Trace ankle edema bilaterally). Absent: calf tenderness Back exam: Present: normal inspection. Absent: CVA tenderness (R), CVA tenderness (L) Neurological exam: Present: alert Skin exam: Present: warm, dry, intact, normal color. Absent: rash Course Vital Signs 11/29/18 20:30 Temperature 98.5 F Pulse Rate 86 Respiratory 18 Rate Blood Pressure 164/94 O2 Sat by Pulse 98 Oximetry Medical Decision Making - Lab Data Result diagrams: 11/29/18 22:00 11/29/18 22:00 Lab Results 11/29/18 11/29/18 11/29/18 Range/Units 22:00 22:00 22:00 WBC 12.6 H (3.8-10.6) k/uL RBC 4.99 (4.30-5.90) m/uL Hgb 15.6 (13.0-17.5) gm/dL Hct 46.4 (39.0-53.0) % MCV 93.1 (80.0-100.0) fL MCH 31.2 (25.0-35.0) pg MCHC 33.5 (31.0-37.0) g/dL RDW 14.1 (11.5-15.5) % Plt Count 216 (150-450) k/uL Neutrophils % 75 % Lymphocytes % 14 % Monocytes % 6 % Eosinophils % 3 % Basophils % 0 % Neutrophils # 9.5 H (1.3-7.7) k/uL Lymphocytes # 1.7 (1.0-4.8) k/uL Monocytes # 0.7 (0-1.0) k/uL Eosinophils # 0.4 (0-0.7) k/uL Basophils # 0.1 (0-0.2) k/uL Sodium 142 (137-145) mmol/L Potassium 4.5 (3.5-5.1) mmol/L Chloride 104 (98-107) mmol/L Carbon Dioxide 30 (22-30) mmol/L Anion Gap 8 mmol/L BUN 12 (9-20) mg/dL Creatinine 0.80 (0.66-1.25) mg/dL Est GFR (CKD-EPI)AfAm >90 (>60 ml/min/1.73 sqM) Est GFR (CKD-EPI)NonAf >90 (>60 ml/min/1.73 sqM) Glucose 101 H (74-99) mg/dL Plasma Lactic Acid [place] 1.9 (0.7-2.0) mmol/L Calcium 10.0 (8.4-10.2) mg/dL Total Bilirubin 0.6 (0.2-1.3) mg/dL AST 29 (17-59) U/L ALT 50 (21-72) U/L Alkaline Phosphatase 94 (38-126) U/L Total Protein 6.8 (6.3-8.2) g/dL Albumin 4.4 (3.5-5.0) g/dL Amylase 50 (30-110) U/L Lipase 104 (23-300) U/L Disposition Clinical Impression: Incarcerated hernia Dis[facility] Condition: Serious Referrals: Shivam Vyas MD [Primary Care Provider] - 1-2 days
--- NOTE | 2018-11-29 21:56 | CT ---
EXAMINATION TYPE: CT abdomen pelvis wo con DATE OF EXAM: 11/29/2018 COMPARISON: 06/04/2018 HISTORY: ABDOMINAL PAIN, COLOSTOMY CT DLP: 975 mGycm Automated exposure control for dose reduction was used. TECHNIQUE: Helical acquisition of images was performed from the lung bases through the pelvis. FINDINGS: There is mild subsegmental atelectasis at the lung bases. There is no pleural effusion. Heart size is normal. There is no pericardial effusion. Stomach appears fairly normal. Liver spleen pancreas gallb ladder appear normal. Bile ducts are not dilated. There is no adrenal mass. Kidneys show normal size and contour. There is no hydronephrosis. Ureters a re not dilated. There is left upper quadrant colostomy noted. There is incarcerated left side abdominal wall hernia with multiple loops of small bowel. There is di stended fluid-filled loops of small bowel throughout the abdomen. The opening measures 5.5 cm. There is a midline anterior abdominal wall incarcerated ventral hernia that measures between 4 cm. This als o contains fluid-filled small bowel. The distal ileum is not dilated. Large bowel is not dilated. The re are diverticula of the transverse colon and splenic flexure. There is apparent resection of the si gmoid colon and descending colon. There is a rectal stump. Bladder distends smoothly. There is no ing uinal hernia. There is no free fluid in the pelvis. There is no ascites. There is no sign of free air . Lumbar spine appears intact. There is narrowing of L5-S1 disc space with spur formation. IMPRESSION: THERE IS A COLOSTOMY. THERE ARE 2 INCARCERATED ANTERIOR ABDOMINAL WALL VENTRAL HERNIAS CONTAINING SMA LL BOWEL. THERE IS EVIDENCE FOR MECHANICAL SMALL BOWEL OBSTRUCTION. THE MIDLINE VENTRAL HERNIA APPEAR S NEW COMPARED TO OLD EXAM. LEFT SIDE VENTRAL HERNIA APPEARS SLIGHTLY INCREASED IN SIZE COMPARED TO O LD EXAM.
[2018-11-29 22:14] LABS: Basophils # (A) 0.1 k/uL (0-0.2); Basophils % (A) 0 %; Eosinophils # (A) 0.4 k/uL (0-0.7); Eosinophils % (A) 3 %; HCT 46.4 % (39.0-53.0); HGB 15.6 gm/dL (13.0-17.5); Lymphocytes # (A) 1.7 k/uL (1.0-4.8); Lymphocytes % (A) 14 %; MCH 31.2 pg (25.0-35.0); MCHC 33.5 g/dL (31.0-37.0); MCV 93.1 fL (80.0-100.0); Mean Platelet Volume 8.5; Monocytes # (A) 0.7 k/uL (0-1.0); Monocytes % (A) 6 %; Neutrophils # (A) 9.5 k/uL (1.3-7.7); Neutrophils % (A) 75 %; Platelet Count 216 k/uL (150-450); RBC 4.99 m/uL (4.30-5.90); RDW 14.1 % (11.5-15.5); WBC 12.6 k/uL (3.8-10.6)
[2018-11-29 22:27] LABS: ALT 50 U/L (21-72); AST 29 U/L (17-59); Albumin 4.4 g/dL (3.5-5.0); Alkaline Phosphatase 94 U/L (38-126); Amylase 50 U/L (30-110); Anion Gap 8 mmol/L; Blood Urea Nitrogen 12 mg/dL (9-20); Carbon Dioxide 30 mmol/L (22-30); Chloride 104 mmol/L (98-107); Glucose 101 mg/dL (74-99); Lipase 104 U/L (23-300); Potassium 4.5 mmol/L (3.5-5.1); Sodium 142 mmol/L (137-145); Total Bilirubin 0.6 mg/dL (0.2-1.3); Total Protein 6.8 g/dL (6.3-8.2)
[2018-11-29] MEDS ORDERED: HYDROmorphone 1 MG/ML 1 ML SYRINGE IVP STA (22:27)
[2018-11-30] MEDS ORDERED: NALOXONE 0.4 MG/ML 1 ML VIAL IV PRN (00:32)
[2018-11-30] MEDS: SODIUM CHLORIDE 0.9% 1,000 ML IV SCH ×2 (00:47→07:42)
[2018-11-30] MEDS: HYDROmorphone 1 MG/ML 1 ML SYRINGE IVP PRN ×2 (01:39→04:50)
[2018-11-30] MEDS: ONDANSETRON 4 MG/2 ML VIAL IVP PRN ×2 (01:45→12:38)
[2018-11-30 02:03] VITALS: BMI 39.1
[2018-11-30] MEDS: MORPHINE SULFATE 4 MG/ML SYRINGE IV PRN ×2 (07:00→11:17)
[2018-11-30 07:21] LABS: Appearance,Urine Clear (Clear); Bilirubin,Urine Negative (Negative); Blood,Urine Negative (Negative); Color,Urine Yellow; Glucose,Urine (UA) Negative (Negative); Ketones,Urine Negative (Negative); Leukocyte Esterase,Urine Negative (Negative); Nitrite,Urine Negative (Negative); Protein,Urine Negative (Negative); Specific Gravity,Urine 1.025 (1.001-1.035); Urobilinogen,Urine <2.0 mg/dL (<2.0)
[2018-11-30 07:53] VITALS: BP 159/96; PULSE 99; RESP 20; TEMP 98
[2018-11-30] MEDS ORDERED: ALBUTEROL NEBULIZED 2.5 MG/3 ML INHALATION PRN (10:56)
--- NOTE | 2018-11-30 13:31 | P.EN ---
Delayed Note: Spoke to patient and at 0900 this morning. Patient presented to the hospital with abdominal pain. Found to have incarcerated hernia. The patient was admitted to the hospital under the care of Dr. Perez. The patient has had previous surgeries by Dr. Perez. However, the patient is now refusing to see Dr. Perez and wants a different surgeon. Patient states he had an appointment scheduled with Dr. mann next week for evaluation. Nursing unit called Dr. Mann to see if he would see the patient in the hospital, but he declined. Due to patient refusing care by Dr. Perez, Dr. Perez recommends immediate transfer to [facility] due to complexity of patient's condition along with no other surgeon available to care for the patient. Patient and agreeable. Case management and nursing aware and will set up transfer.
--- NOTE | 2018-11-30 14:25 | HP ---
HISTORY AND PHYSICAL CHIEF COMPLAINT: Acute abdominal pain and incarcerated abdominal wall hernia. HISTORY OF PRESENT ILLNESS: This is another admission for this 53-year-old white male. He started to have severe abdominal pain with protrusion of his large left ventral hernia with firmness. He has not been vomiting, but he came to the emergency room and was admitted. This was operated on in the last year with incomplete resolution of the hernia. REVIEW OF SYSTEMS: She has had no neurologic problems, chest pain, shortness of breath, cough, hemoptysis, hematemesis, melena, hematochezia, jaundice, renal failure, etc. past medical history, family history and personal and social histories: Demonstrates that he has been treated for hypertension, anxiety. He also has COPD due to smoking and he has been trying to quit. He is alert. He is not. ALLERGIES: He is on levothyroxine 0.05 mg once a day, omeprazole 20 mg once a day, Xanax 0.5 t.i.d. p.r.n., Symbicort 160/4.5 two puffs twice a day, and hydralazine 50 mg t.i.d., vitamin D, [place] 7.5 t.i.d. p.r.n., Wellbutrin 150 b.i.d., Ventolin HFA, Ventolin HFA, lisinopril 40 once a day, and Zantac. The remainder of his history is unremarkable. PHYSICAL EXAM: Blood pressure 118/78, pulse is a pulse of 94, respirations of 35. He is afebrile. In general, he appeared to be overweight and very uncomfortable. Head, ears, eyes, nose, mouth, and throat were normal. Neck veins are not distended. Thyroid not enlarged. Chest is clear. Breath sounds are diminished. Cardiac exam is normal sinus tachycardia. The abdomen is protuberant and he has a large left-sided ventral abdominal hernia with a with a colostomy. Extremities are normal. Neurologic is intact. IMPRESSION: 1. Incarcerated ventral hernia. 2. Colostomy. 3. Chronic obstructive pulmonary disease. 4. Hypertension. PLAN: 1. Bed rest. 2. IV fluids. 3. N.p.o. 4. Analgesics. 5. Surgical evaluation. MMODL / IJN: [id number] /
[2018-11-30] MEDS ORDERED: hydrALAZINE HCL 50 MG TAB PO SCH (16:00)
[2018-11-30] MEDS ORDERED: SYMBICORT 160-4.5 MCG INHALER INHALATION SCH (20:00)
[2018-12-01] MEDS ORDERED: LEVOTHYROXINE 50 MCG TAB PO SCH (06:30)
[2018-12-01] MEDS ORDERED: LISINOPRIL 20 MG TAB PO SCH (09:00)
[2018-12-01] MEDS ORDERED: buPROPion XL 150 MG TAB.ER.24H PO SCH (09:00)
[2018-12-01] MEDS ORDERED: IPRATROPIUM 0.5 MG/2.5 ML NEBU INHALATION SCH (12:00)
== END 2018-11-30 13:03 | disposition short-term general hospital (02) | DRG 395 ==
LOC: EC 20:10 → 4SSUR 11-30 00:35
PROVIDERS: ADMIT Surgery; ATTEND Surgery
DX: K43.6 Other and unspecified ventral hernia with obstruction, without gangrene (principal); F17.200 Nicotine dependence, unspecified, uncomplicated; E66.3 Overweight; F32.9 Major depressive disorder, single episode, unspecified; G47.30 Sleep apnea, unspecified; F41.9 Anxiety disorder, unspecified; I10 Essential (primary) hypertension; J44.9 Chronic obstructive pulmonary disease, unspecified; K21.9 Gastro-esophageal reflux disease without esophagitis; Z79.51 Long term (current) use of inhaled steroids; Z99.89 Dependence on other enabling machines and devices; Z79.890 Hormone replacement therapy; Z87.09 Personal history of other diseases of the respiratory system; Z93.3 Colostomy status; Z88.5 Allergy status to narcotic agent; Z88.8 Allergy status to other drugs, medicaments and biological substances; Z91.030 Bee allergy status; Z68.39 Body mass index [BMI] 39.0-39.9, adult
CPT/HCPCS: 36415; 74176; 80053; 81003; 82150; 83605; 83690; 85025; 94760; 96374; 96376; 99285

== ENCOUNTER → 2018-12-16 | Outpatient (CLI) | payer MEDICARE, OTHER ==
--- NOTE | 2018-12-16 14:13 | US ---
EXAMINATION TYPE: US venous doppler duplex LE BI DATE OF EXAM: 12/16/2018 1:56 PM COMPARISON: NONE CLINICAL HISTORY: R79.1 Abnormal coagulation profile. Pt states recent hernia surgery, having elevate d D-Dimer, bilateral swelling of feet SIDE PERFORMED: Bilateral TECHNIQUE: The lower extremity deep venous system is examined utilizing real time linear array sonog juan with graded compression, doppler sonography and color-flow sonography. VESSELS IMAGED: External Iliac Vein (EIV) Common Femoral Vein Deep Femoral Vein Greater Saphenous Vein * Femoral Vein Popliteal Vein Small Saphenous Vein * Proximal Calf Veins (* superficial vessels) Right Leg: Negative for DVT Left Leg: Negative for DVT Grayscale, color doppler, spectral doppler imaging performed of the deep veins of the bilateral lower extremities. There is normal flow, compressibility, vascular waveforms. IMPRESSION: No ultrasound evidence for acute DVT in either lower extremity.
== END ==
LOC: RADUSWWP 13:34
PROVIDERS: ATTEND Family Medicine
DX: R79.1 Abnormal coagulation profile (principal); R22.42 Localized swelling, mass and lump, left lower limb; R22.41 Localized swelling, mass and lump, right lower limb
CPT/HCPCS: 93970

== ENCOUNTER → 2019-06-30 | Outpatient (CLI) | payer MEDICARE, OTHER ==
--- NOTE | 2019-06-30 14:21 | CT ---
EXAMINATION TYPE: CT soft tissue neck wo con DATE OF EXAM: 06/30/2019 COMPARISON: 09/12/2018 HISTORY: Left neck mass, R 22.1 CT DLP: 609.1 mGycm CONTRAST: Patient injected with 0 mL of Isovue 300. TECHNIQUE: Axial images at 3 mm thick sections. Reconstructed images in the coronal plane and sagitt al plane are reviewed. FINDINGS: Limited CT sections are obtained the lung apices. Emphysematous changes are within the upp er lung aguilera. CT neck: The torus tubarius and fossa of [place]er are normal. Sueding Machine Tender spaces are normal. Para nasal sinuses and mastoid air cells are clear. Parotid glands appear normal and symmetrical. Submandibular glands, are normal. Parapharyngeal spac es are normal. No suspicious adenopathy is evident. The hypopharynx appears within normal limits. Vocal cord level as visualized appears symmetrical. Just superior to the vocal cords there are scatte red punctate areas of hypodensity which may be tiny air collections within the soft tissues. Center r ecurrent infection. This could be air within debris. A suspicious air fluid levels not evident. Thyroid as visualized is normal. Osseous structures are normal. IMPRESSIONS: 1. Scattered punctate areas of air within soft tissues just above the level of the vocal cords. Consi rosalie recurrent infection at this level. This could be air trapped within the debris through the hypoph arynx. Underlying abscess is not identified based on the noncontrast CT. Follow-up as clinically derrek cated.
== END | disposition home or self-care (01) ==
LOC: RADCTMAIN 12:03
PROVIDERS: ATTEND Family Medicine
DX: L08.9 Local infection of the skin and subcutaneous tissue, unspecified (principal); R22.1 Localized swelling, mass and lump, neck
CPT/HCPCS: 70490

== ENCOUNTER 2021-10-09 11:31 | Inpatient (IN) | payer MEDICARE, OTHER ==
[2021-10-09] MEDS ORDERED: HYDROmorphone 0.5 MG/0.5 ML SYRINGE IVP STA (11:59)
[2021-10-09] MEDS ORDERED: SODIUM CHLORIDE 0.9% 500 ML 500 ML IV STA (11:59)
--- NOTE | 2021-10-09 12:04 | ED ---
General Adult HPI - General Chief complaint: Abdominal Pain Stated complaint: abd/side pain Time Seen by Provider: 10/09/21 11:55 Source: patient Mode of arrival: ambulatory Limitations: no limitations - History of Present Illness Initial comments: Well-appearing 48-year-old male presents to the emergency room with complaints of 1 week of right-sided abdominal pain with loose stool from his colostomy. He does have a history of diverticulitis that was found on endoscopy which resulted in a perforation and a colostomy. He did see his doctor who told him to come to the emergency room today for evaluation. He states that the pain is sharp in nature on the right side and started last Thursday, not getting better. He denies any fevers. He is a pack and a half a day smoker. -: week(s) (1) Location: abdomen (Right sided) Severity scale (1-10): 8 Quality: sharp Consistency: constant Improves with: none Worsens with: other (palpation) Associated Symptoms: other (loose stool) Treatments Prior to Arrival: none - Related Data Home Medications Medication Instructions Recorded Confirmed Budesonide-Formot 160-4.5 Mcg 2 puff INHALATION RT-DAILY 10/04/14 10/09/21 [Symbicort 160-4.5 Mcg Inhaler] buPROPion XL [Wellbutrin XL] 150 mg PO DAILY 10/04/14 10/09/21 lisinopriL 40 mg PO DAILY 10/04/14 10/09/21 HYDROcodone/APAP 7.5-325MG [[place] 1 tab PO Q12H PRN 07/14/17 10/09/21 7.5-325] Levothyroxine Sodium [Synthroid] 50 mcg PO DAILY 07/14/17 10/09/21 Tiotropium [place] [Spiriva 2 spray INHALATION RT-HS 09/12/18 10/09/21 Respimat] Fluticasone Nasal [place] [Flonase 1 spray EA NOSTRIL DAILY 11/29/18 10/09/21 Nasal [place]] Loratadine [Claritin] 10 mg PO DAILY 11/29/18 10/09/21 ALPRAZolam [Xanax] 2 mg PO Q12H PRN 10/09/21 10/09/21 Albuterol Sulfate [Ventolin HFA] 2 puff INHALATION RT-Q6H PRN 10/09/21 10/09/21 Ergocalciferol [Vitamin D2 (1250 1,250 mcg PO Q30D 10/09/21 10/09/21 Mcg = [id number] Iu)] Famotidine [Pepcid] 20 mg PO DAILY 10/09/21 10/09/21 hydrALAZINE HCL [Apresoline] 50 mg PO DAILY 10/09/21 10/09/21 rOPINIRole HCL [Requip] 0.25 mg PO HS 10/09/21 10/09/21 Allergies Allergy/AdvReac Type Severity Reaction Status Date / Time bee pollen Allergy Severe Swelling Verified 10/09/21 12:36 gabapentin [From Neurontin] Allergy Unknown Verified 10/09/21 12:36 COLOPLAST BRAND COLOSCOPY BAG AdvReac Rash/Hives Uncoded 09/12/18 09:37 Review of Systems ROS Statement: Those systems with pertinent positive or pertinent negative responses have been documented in the HPI. ROS Other: All systems not noted in ROS Statement are negative. Past Medical History Past Medical History: Asthma, COPD, GERD/Reflux, Hypertension, Pneumonia, Skin Disorder, Sleep Apnea/CPAP/BIPAP, Thyroid Disorder Additional Past Medical History / Comment(s): HX OF DIVERTICULITIS, PERFORATED COLON DURING COLONOSCOPY (2010) - HAS COLOSTOMY., SKIN BREAKDOWN AROUND STOMA., INCISIONAL AND STOMA HERNIA., HX OF HEART MURMUR & ASTHMA A CHILD. , SOB WITH STAIRS., BACK PAIN , UNABLE TO STAND FOR LONG PERIODS., USES SLEEP APNEA MACHINE. History of Any Multi-Drug Resistant Organisms: MRSA Date of last positivie culture/infection: 2010 MDRO Source:: abdominal incision Past Surgical History: Bowel Resection Additional Past Surgical History / Comment(s): colostomy for ruptured diverticulitis in 2010, colonsocopy, WRIST SURGERY. Past Anesthesia/Blood Transfusion Reactions: No Reported Reaction Additional Past Anesthesia/Blood Transfusion Reaction / Comment(s): . Past Psychological History: Anxiety, Depression Smoking Status: Current every day smoker Past Alcohol Use History: None Reported Past Drug Use History: Marijuana - Past Family History Mother Family Medical History: Cancer Sister(s) Family Medical History: Cancer Mother Sister(s) Family Medical History: Cancer General Exam Limitations: no limitations General appearance: alert, in no apparent distress Eye exam: Present: normal appearance ENT exam: Present: normal exam, normal oropharynx, mucous membranes moist Neck exam: Present: normal inspection, full ROM. Absent: tenderness, meningismus, lymphadenopathy Respiratory exam: Present: normal lung sounds bilaterally. Absent: respiratory distress, wheezes, rales, rhonchi, stridor, chest wall tenderness, accessory muscle use Cardiovascular Exam: Present: regular rate, normal rhythm, normal heart sounds. Absent: systolic murmur, diastolic murmur, rubs, gallop, clicks, JVD GI/Abdominal exam: Present: soft, distended, tenderness, other (Colostomy). Absent: guarding (Right sided), rebound Back exam: Present: normal inspection, full ROM. Absent: tenderness, CVA tenderness (R), CVA tenderness (L), rash noted Neurological exam: Present: alert, normal gait. Absent: oriented X3 Psychiatric exam: Present: normal affect, normal mood Skin exam: Present: warm, dry, intact, normal color. Absent: rash, cyanosis, diaphoretic Course Vital Signs 10/09/21 10/09/21 11:44 14:21 Temperature 98 F 97.1 F L Pulse Rate 78 72 Respiratory 18 20 Rate Blood Pressure 177/96 153/93 O2 Sat by Pulse 96 95 Oximetry Medical Decision Making - Medical Decision Making 48-year-old male presents with complaints of 1 week of right-sided abdominal pain with loose stool from his colostomy. He does have a history of diverticulitis, history of perforation and has a colostomy. Pain is sharp in nature on the right side since last Thursday. Denies any fevers. X-ray shows a nonspecific bowel gas pattern. There is a developing recurrent small bowel obstruction suspected similar to prior CT. CBC and electrolytes are unremarkable. Lactic acid is negative. Patient's abdomen is soft, reports his pain has improved after medication. He is not having any vomiting. He was placed on a clear liquid diet. Case was discussed with Dr. Gibbs. He will be admitted with developing small bowel obstruction with surgical consult. Patient is agreeable to this plan of care. - Lab Data Result diagrams: 10/09/21 12:00 10/09/21 12:00 Lab Results 10/09/21 10/09/21 10/09/21 Range/Units 12:00 12:00 12:00 WBC 8.0 (3.8-10.6) k/uL RBC 5.02 (4.30-5.90) m/uL Hgb 16.6 (13.0-17.5) gm/dL Hct 49.3 (39.0-53.0) % MCV 98.1 (80.0-100.0) fL MCH 33.1 (25.0-35.0) pg MCHC 33.7 (31.0-37.0) g/dL RDW 13.5 (11.5-15.5) % Plt Count 161 (150-450) k/uL MPV 8.5 Neutrophils % 68 % Lymphocytes % 21 % Monocytes % 5 % Eosinophils % 2 % Basophils % 0 % Neutrophils # 5.5 (1.3-7.7) k/uL Lymphocytes # 1.7 (1.0-4.8) k/uL Monocytes # 0.4 (0-1.0) k/uL Eosinophils # 0.2 (0-0.7) k/uL Basophils # 0.0 (0-0.2) k/uL Sodium 140 (137-145) mmol/L Potassium 4.0 (3.5-5.1) mmol/L Chloride 105 (98-107) mmol/L Carbon Dioxide 24 (22-30) mmol/L Anion Gap 11 mmol/L BUN 12 (9-20) mg/dL Creatinine 0.74 (0.66-1.25) mg/dL Est GFR (CKD-EPI)AfAm >90 (>60 ml/min/1.73 sqM) Est GFR (CKD-EPI)NonAf >90 (>60 ml/min/1.73 sqM) Glucose 100 H (74-99) mg/dL Plasma Lactic Acid [place] 1.6 (0.7-2.0) mmol/L Calcium 9.6 (8.4-10.2) mg/dL Total Bilirubin 0.8 (0.2-1.3) mg/dL AST 31 (17-59) U/L ALT 31 (4-49) U/L Alkaline Phosphatase 109 (38-126) U/L Total Protein 7.3 (6.3-8.2) g/dL Albumin 4.6 (3.5-5.0) g/dL Amylase 54 (30-110) U/L Lipase 66 (23-300) U/L Disposition Clinical Impression: Small bowel obstruction Disposition: ADMITTED IP TO THIS HOSP Decision Date: 10/09/21 Decision Time: 13:45
[2021-10-09 12:50] LABS: ALT 31 U/L (4-49); AST 31 U/L (17-59); African American GFR (CKD) >90 (>60 ml/min/1.73 sqM); Albumin 4.6 g/dL (3.5-5.0); Alkaline Phosphatase 109 U/L (38-126); Amylase 54 U/L (30-110); Anion Gap 11 mmol/L; Blood Urea Nitrogen 12 mg/dL (9-20); Calcium 9.6 mg/dL (8.4-10.2); Carbon Dioxide 24 mmol/L (22-30); Chloride 105 mmol/L (98-107); Glucose 100 mg/dL (74-99); Lipase 66 U/L (23-300); Non-African American GFR(CKD) >90 (>60 ml/min/1.73 sqM); Sodium 140 mmol/L (137-145); Total Bilirubin 0.8 mg/dL (0.2-1.3); Total Protein 7.3 g/dL (6.3-8.2)
--- NOTE | 2021-10-09 12:52 | XR ---
EXAMINATION TYPE: XR KUB DATE OF EXAM: 10/09/2021 12:39 PM CLINICAL HISTORY: Right upper quadrant pain TECHNIQUE: Two Upright KUB images of the abdomen are obtained. COMPARISON: CT abdomen and pelvis November 29, 2018. FINDINGS: Gas is seen in nondistended stomach. Gas is seen and slightly prominent small bowel loops i n the central abdomen with air-fluid levels. Gas is seen in nondistended colon along the periphery. T here is left lower quadrant ostomy redemonstrated. No free air is seen. Mild hepatomegaly and promine nt right hepatic lobe demonstrated. Visualized osseous structures are intact. IMPRESSION: Overall nonspecific bowel gas pattern. Developing recurrent small bowel obstruction is suspected stuart lar to prior CT.
[2021-10-09 12:53] LABS: Basophils % (A) 0 %; Eosinophils # (A) 0.2 k/uL (0-0.7); Eosinophils % (A) 2 %; HCT 49.3 % (39.0-53.0); HGB 16.6 gm/dL (13.0-17.5); Lymphocytes # (A) 1.7 k/uL (1.0-4.8); Lymphocytes % (A) 21 %; MCH 33.1 pg (25.0-35.0); MCHC 33.7 g/dL (31.0-37.0); MCV 98.1 fL (80.0-100.0); Mean Platelet Volume 8.5; Monocytes # (A) 0.4 k/uL (0-1.0); Monocytes % (A) 5 %; Neutrophils # (A) 5.5 k/uL (1.3-7.7); Neutrophils % (A) 68 %; Platelet Count 161 k/uL (150-450); RBC 5.02 m/uL (4.30-5.90); RDW 13.5 % (11.5-15.5)
[2021-10-09] MEDS ORDERED: NALOXONE 0.4 MG/ML 1 ML VIAL IV PRN (13:52)
[2021-10-09] MEDS ORDERED: ACETAMINOPHEN TAB 325 MG TAB PO PRN (13:52)
[2021-10-09] MEDS ORDERED: ALBUTEROL HFA INHALER INHALATION PRN (13:55)
[2021-10-09] MEDS: HYDROmorphone 0.5 MG/0.5 ML SYRINGE IVP PRN ×2 (16:31→20:22)
[2021-10-09] MEDS: SODIUM CHLORIDE 0.9% 1,000 ML IV SCH (17:55)
[2021-10-09] MEDS: ALPRAZolam 1 MG TAB PO PRN (18:19)
[2021-10-09] MEDS: TIOTROPIUM 2.5 MCG INHALER INHALATION SCH (23:54)
[2021-10-10] MEDS: HYDROmorphone 0.5 MG/0.5 ML SYRINGE IVP PRN ×6 (00:58→21:06)
[2021-10-10] MEDS: LEVOTHYROXINE 50 MCG TAB PO SCH (05:21)
[2021-10-10] MEDS: SODIUM CHLORIDE 0.9% 1,000 ML IV SCH ×2 (05:21→12:26)
[2021-10-10] MEDS: hydrALAZINE HCL 50 MG TAB PO SCH (07:10)
[2021-10-10] MEDS: buPROPion XL 150 MG TAB.ER.24H PO SCH (07:10)
[2021-10-10] MEDS: FLUTICASONE 50MCG/SPRAY NASAL 16GM EA NOSTRIL SCH (07:11)
[2021-10-10] MEDS: lisinopriL 20 MG TAB PO SCH (07:11)
[2021-10-10] MEDS: LORATADINE 10 MG TAB PO SCH (07:11)
[2021-10-10] MEDS: FAMOTIDINE 20 MG TAB PO SCH (07:11)
[2021-10-10] MEDS: IOPAMIDOL CONTRAST (ORAL USE) VIAL PO PRN ×2 (11:30→12:26)
[2021-10-10] MEDS ORDERED: ONDANSETRON 4 MG/2 ML VIAL IVP PRN (12:25)
[2021-10-10] MEDS: ALPRAZolam 1 MG TAB PO PRN (12:34)
--- NOTE | 2021-10-10 13:04 | P.GSCN ---
History of Present Illness Consult date: 10/10/21 Reason for Consult: Small bowel obstruction Requesting physician: Shivam Vyas History of present illness: CHIEF COMPLAINT: Right flank pain HISTORY OF PRESENT ILLNESS: This a 56-year-old male who presented to the emergency department yesterday with complaints of right abdominal/flank pain. He has history of perforated colon status post bowel resection with colostomy creation in approximately 2010. In 2016 the patient underwent a colonoscopy by Dr. Padilla showing diverticulosis. I according to the patient's chart he had lysis of adhesions, repair of incisional hernia incisional parastomal repair, partial colectomy and omentectomy in November [address] Perez. 2018 he returned to the hospital with abdominal pain and was transferred to [facility] for further evaluation and management. The patient states he did undergo surgery at that time, he states he has not had any follow-up with that surgeon. He had a abdominal x-ray on admission with overall nonspecific bowel gas pattern. Developing recurrent small bowel obstruction is suspected similar to prior CT. Surgery was consulted for further evaluation. He states the pain began last Thursday and has progressively gotten worse. States the last couple days he's had a decreased appetite. He states he's had loose, however, no output today but he states he hasn't eaten in 1-2 days. He has had some nausea, no vomiting. His been afebrile. PAST MEDICAL HISTORY: See list. PAST SURGICAL HISTORY: See list. MEDICATIONS: See list. ALLERGIES: See list. SOCIAL HISTORY: No illicit drug use. REVIEW OF SYSTEMS: CONSTITUTIONAL: Denies fever or chills. HEENT: Denies blurred vision, vision changes, or eye pain. Denies hemoptysis ENDOCRINE: Denies heat or cold intolerance. CARDIOVASCULAR: Denies chest pain or pressure. RESPIRATORY: No shortness of breath. GASTROINTESTINAL: Right flank pain. Nausea but no vomiting. Loose stool from colostomy. Decreased output today. NEURO: Denies history of seizures. PSYCH: No depression or suicidal ideation HEMATOLOGIC: Denies bleeding disorders. LYMPHATIC: The patient denies any lumps and bumps around the neck. GENITOURINARY: Denies any blood in urine or increased urinary frequency. MUSCULOSKELETAL: Denies myalgias. Denies joint swelling. Denies decreased range of motion beyond patients baseline. SKIN: Denies pruitis. Denies rash. PHYSICAL EXAM: VITAL SIGNS: Reviewed GENERAL: Well-developed in no acute distress. HEENT: No sclera icterus. Extraocular movements grossly intact. Moist buccal mucosa. Head is atraumatic, normocephalic. Hears conversational speech. No nasal drainage. NECK: Supple without lymphadenopathy. CHEST: Non-labored respirations and equal bilateral excursions. CARDIOVASCULAR: Palpable 2+ radial pulses. ABDOMEN: Soft. Obese. Nondistended. Colostomy left side of the abdomen. Right flank tenderness MUSCULOSKELETAL: No clubbing or cyanosis. NEUROLOGIC: No focal or lateralizing signs. Cranial nerves II through XII grossly intact. PSYCH: Appropriate affect. Alert and oriented to person, place and time. SKIN: Well perfused. Good skin turgor. LABORATORY DATA: WBC 8.0 hemoglobin 16.6 platelet count 161,000 Sodium 140 potassium 4.0 BUN 12 creatinine 0.74 total bilirubin 0.8 AST 31 ALT 31 alkaline phosphatase 109 Total protein 7.3 albumin 4.6 amylase 54 lipase 66 IMAGING: KUB overall nonspecific bowel gas pattern. Developing recurrent small bowel obstruction is suspected similar to prior CT. ASSESSMENT: 1. Right flank pain, need to consider a possible kidney stone 2. Overall nonspecific bowel gas pattern. Development of small bowel obstruction seen on abdominal x-ray 3. Morbid obesity PLAN: 1. CT abdomen and pelvis with contrast ordered 2. Keep clear liquid diet for now 3. Patient without any signs or symptoms of acute abdomen, no indication for surgical intervention at this time 4. Further recommendations forthcoming based on clinical course The impression and plan of care has been dictated as directed. Dr. Chavez I performed a history and examination of this patient, discussed the same with the dictator. I agree with the dictator's note ,documented as a scribe. Any additional findings or plans will be noted. Past Medical History Past Medical History: Asthma, COPD, GERD/Reflux, Hypertension, Pneumonia, Skin Disorder, Sleep Apnea/CPAP/BIPAP, Thyroid Disorder Additional Past Medical History / Comment(s): HX OF DIVERTICULITIS, PERFORATED COLON DURING COLONOSCOPY (2010) - HAS COLOSTOMY., SKIN BREAKDOWN AROUND STOMA., INCISIONAL AND STOMA HERNIA., HX OF HEART MURMUR & ASTHMA A CHILD. , SOB WITH STAIRS., BACK PAIN , UNABLE TO STAND FOR LONG PERIODS., USES SLEEP APNEA MAC LAILA. History of Any Multi-Drug Resistant Organisms: MRSA Year Discovered:: 2010 MDRO Source:: abdominal incision Past Surgical History: Bowel Resection Additional Past Surgical History / Comment(s): colostomy for ruptured diverticulitis in 2011, colonsocopy, WRIST SURGERY. Past Anesthesia/Blood Transfusion Reactions: No Reported Reaction Additional Past Anesthesia/Blood Transfusion Reaction / Comm: . Past Psychological History: Anxiety, Depression Smoking Status: Current every day smoker Past Alcohol Use History: None Reported Additional Past Alcohol Use History / Comment(s): SMOKES 1.5 PPD. STARTED SMOKING AGE 8. Past Drug Use History: Marijuana Additional Drug Use History / Comment(s): occassional marijuana use - Past Family History Mother Family Medical History: Cancer Sister(s) Family Medical History: Cancer Mother Sister(s) Family Medical History: Cancer Medications and Allergies Home Medications Medication Instructions Recorded Confirmed Type Budesonide-Formot 160-4.5 Mcg 2 puff INHALATION RT-DAILY 10/04/14 10/09/21 History [Symbicort 160-4.5 Mcg Inhaler] buPROPion XL [Wellbutrin XL] 150 mg PO DAILY 10/04/14 10/09/21 History lisinopriL 40 mg PO DAILY 10/04/14 10/09/21 History HYDROcodone/APAP 7.5-325MG [[place] 1 tab PO Q12H PRN 07/14/17 10/09/21 History 7.5-325] Levothyroxine Sodium [Synthroid] 50 mcg PO DAILY 07/14/17 10/09/21 History Tiotropium [place] [Spiriva 2 spray INHALATION RT-HS 09/12/18 10/09/21 History Respimat] Fluticasone Nasal [place] [Flonase 1 spray EA NOSTRIL DAILY 11/29/18 10/09/21 History Nasal [place]] Loratadine [Claritin] 10 mg PO DAILY 11/29/18 10/09/21 History ALPRAZolam [Xanax] 2 mg PO Q12H PRN 10/09/21 10/09/21 History Albuterol Sulfate [Ventolin HFA] 2 puff INHALATION RT-Q6H PRN 10/09/21 10/09/21 History Ergocalciferol [Vitamin D2 (1250 1,250 mcg PO Q30D 10/09/21 10/09/21 History Mcg = 65887 Iu)] Famotidine [Pepcid] 20 mg PO DAILY 10/09/21 10/09/21 History hydrALAZINE HCL [Apresoline] 50 mg PO DAILY 10/09/21 10/09/21 History rOPINIRole HCL [Requip] 0.25 mg PO HS 10/09/21 10/09/21 History Allergies Allergy/AdvReac Type Severity Reaction Status Date / Time bee pollen Allergy Severe Swelling Verified 10/09/21 12:36 gabapentin [From Neurontin] Allergy Unknown Verified 10/09/21 12:36 COLOPLAST BRAND COLOSCOPY BAG AdvReac Rash/Hives Uncoded 09/12/18 09:37 Surgical - Exam Vital Signs Temp Pulse Resp BP Pulse Ox 98 F 78 18 177/96 96 10/09/21 11:44 10/09/21 11:44 10/09/21 11:44 10/09/21 11:44 10/09/21 11:44 Results - Labs 10/09/21 12:00 10/09/21 12:00 Abnormal Lab Results - Last 24 Hours (Table) 10/09/21 Range/Units 12:00 Glucose 100 H (74-99) mg/dL Diabetes panel 10/09/21 Range/Units 12:00 Sodium 140 (137-145) mmol/L Potassium 4.0 (3.5-5.1) mmol/L Chloride 105 (98-107) mmol/L Carbon Dioxide 24 (22-30) mmol/L BUN 12 (9-20) mg/dL Creatinine 0.74 (0.66-1.25) mg/dL Glucose 100 H (74-99) mg/dL Calcium 9.6 (8.4-10.2) mg/dL AST 31 (17-59) U/L ALT 31 (4-49) U/L Alkaline Phosphatase 109 (38-126) U/L Total Protein 7.3 (6.3-8.2) g/dL Albumin 4.6 (3.5-5.0) g/dL Calcium panel 10/09/21 Range/Units 12:00 Calcium 9.6 (8.4-10.2) mg/dL Albumin 4.6 (3.5-5.0) g/dL Pituitary panel 10/09/21 Range/Units 12:00 Sodium 140 (137-145) mmol/L Potassium 4.0 (3.5-5.1) mmol/L Chloride 105 (98-107) mmol/L Carbon Dioxide 24 (22-30) mmol/L BUN 12 (9-20) mg/dL Creatinine 0.74 (0.66-1.25) mg/dL Glucose 100 H (74-99) mg/dL Calcium 9.6 (8.4-10.2) mg/dL Adrenal panel 10/09/21 Range/Units 12:00 Sodium 140 (137-145) mmol/L Potassium 4.0 (3.5-5.1) mmol/L Chloride 105 (98-107) mmol/L Carbon Dioxide 24 (22-30) mmol/L BUN 12 (9-20) mg/dL Creatinine 0.74 (0.66-1.25) mg/dL Glucose 100 H (74-99) mg/dL Calcium 9.6 (8.4-10.2) mg/dL Total Bilirubin 0.8 (0.2-1.3) mg/dL AST 31 (17-59) U/L ALT 31 (4-49) U/L Alkaline Phosphatase 109 (38-126) U/L Total Protein 7.3 (6.3-8.2) g/dL Albumin 4.6 (3.5-5.0) g/dL
[2021-10-10] MEDS: SYMBICORT 160-4.5 MCG INHALER INHALATION SCH (13:17)
--- NOTE | 2021-10-10 14:02 | CT ---
EXAMINATION TYPE: CT abdomen pelvis w con DATE OF EXAM: 10/10/2021 COMPARISON: 11/29/2018 HISTORY: 56-year-old male Bowel obstruction TECHNIQUE: Contiguous axial scanning of the abdomen and pelvis following administration of 100 ml Iso cindy 300 IV contrast. Delayed images through the kidneys and coronal/sagittal reconstructions perform ed. CT DLP: 1716.2 mGycm Automated exposure control for dose reduction was used. FINDINGS: Heart upper limits of normal in size without pericardial effusion. Prominent epicardial fat pad noted . There is some chronic patchy posterior basilar opacities in the lungs, unchanged from 2019. No pleu ral effusion. The liver is enlarged at 20.3 cm. No focal liver lesion seen. Portal venous system is patent. No bili bruce ductal dilatation. Gallbladder, adrenal glands, kidneys, and pancreas are within normal limits. Spleen borderline in size at 13.1 cm on coronal series. Prominent lorie hepatic lymph node measuring 1.1 cm. Prominent pericaval lymph node measuring 1.1 cm. Both of these are unchanged from 2019 compatible with a chronic postinflammatory etiology. No mesent inez or retroperitoneal lymphadenopathy identified. No dilated small bowel, free fluid, or free air. Moderate atherosclerotic calcifications infrarenal abdominal aorta and common iliac arteries. Surgical material at the inferior cecum suggesting prior appendectomy. There is scattered mild stool burden. Left-sided colonic diverticulosis. Post surgical change of left mid abdominal descending colostomy. Interval correction of the previous midline ventral abdominal wall hernia and also the left lower rocio drant abdominal wall hernia. Some scar tissue is present in these regions. Bladder partially distended. Prostate gland measures 3.7 cm wide. No abnormal fluid collection in the pelvis or pelvic lymphadenopathy. A few pelvic phlebolith are noted. Bones: Mild degenerative change of both SI joints. Moderate to advanced degenerative disc disease L5- S1. Hypertrophic facet arthropathy. Changes may contribute to moderate to severe bilateral neuroforam inal stenosis. IMPRESSION: 1. LEFT MID ABDOMINAL DESCENDING COLOSTOMY REDEMONSTRATED. LEFT-SIDED COLONIC DIVERTICULOSIS WITHOUT ACUTE DIVERTICULITIS. 2. INTERVAL SURGICAL REPAIR OF THE PREVIOUSLY SEEN UMBILICAL AND LEFT LOWER QUADRANT VENTRAL ABDOMINA L WALL HERNIAS. SOME SCAR TISSUE IS PRESENT IN THESE REGIONS. NO RECURRENT HERNIA. 3. HEPATOMEGALY AT 20.3 CM.
--- NOTE | 2021-10-10 19:33 | HP ---
HISTORY AND PHYSICAL CHIEF COMPLAINT: Abdominal pain. HISTORY OF PRESENT ILLNESS: This gentleman developed left lower abdominal pain which had been present for 2 to 3 days and he came to emergency room, where it looked as though he had a small bowel obstruction. He has an ileostomy and a huge ventral hernia. He has been doing fairly well with this over the years, and he has not been able to undergo herniorrhaphy because of his COPD and the massive size of the hernia with significant distention. He has not been vomiting. He has had no fever or chills. There has been no liquid stool or blood in the ileostomy bag. REVIEW OF SYSTEMS: He has had no other complaints. He has had no headaches, chest pain, shortness of breath, cough, hemoptysis, urinary complaints, etc. Past medical history, family history, and personal and social histories are all otherwise unremarkable and noncontributory. He is on Ventolin HFA, Vicodin p.r.n., Symbicort, Pepcid, lisinopril, levothyroxine, Flonase, baclofen, Spiriva, hydralazine, ibuprofen, Xanax and omeprazole. The remainder of his history is unremarkable. He still smokes. He does not drink. PHYSICAL EXAMINATION: Blood pressure 130/76 with a pulse of 103, respirations of 35. He is afebrile. In general he appeared to be slightly uncomfortable. Hydration was good. Head, ears, eyes, nose, mouth and throat were normal. Chest was clear but breath sounds were diminished. Cardiac exam was normal sinus rhythm with slight tachycardia. The abdomen was very protuberant, which is normal for him. He has a large mid abdominal ventral hernia. There is an ileostomy in the right lower quadrant. Extremities were normal. Neurologically he is intact. He is admitted to the hospital with the diagnoses: 1. Abdominal pain. 2. Possible bowel obstruction. PLAN: 1. Bedrest. 2. IV fluids. 3. Monitor abdominal pain and GI findings. 4. General surgery consult. MMODL / IJN: [id number] /
--- NOTE | 2021-10-10 19:39 | PN ---
PROGRESS NOTE DATE OF SERVICE: 10/10/2021 CHIEF COMPLAINT: Small bowel obstruction. HISTORY OF PRESENT ILLNESS: This gentleman is still having quite a bit of left-sided abdominal pain. There is some gas in his ileostomy bag. PHYSICAL EXAMINATION: He is afebrile. Chest is clear. Cardiac exam is normal. He is still fairly tender in the left lower quadrant. There are no masses and there is no rebound. IMPRESSION: 1. Small bowel obstruction? 2. Ileostomy. PLAN: Continue to follow his abdominal symptoms. He will be evaluated by General Surgery. MMODL / IJN: [id number] /
[2021-10-10] MEDS: TIOTROPIUM 2.5 MCG INHALER INHALATION SCH (19:42)
[2021-10-10 22:02] VITALS: RESP 17
[2021-10-11] MEDS: HYDROmorphone 0.5 MG/0.5 ML SYRINGE IVP PRN ×5 (00:21→14:00)
[2021-10-11] MEDS: ALPRAZolam 1 MG TAB PO PRN ×2 (00:21→12:51)
[2021-10-11] MEDS: LEVOTHYROXINE 50 MCG TAB PO SCH (05:42)
[2021-10-11] MEDS: SODIUM CHLORIDE 0.9% 1,000 ML IV SCH (07:06)
[2021-10-11] MEDS: hydrALAZINE HCL 50 MG TAB PO SCH (08:16)
[2021-10-11] MEDS: lisinopriL 20 MG TAB PO SCH (08:16)
[2021-10-11] MEDS: LORATADINE 10 MG TAB PO SCH (08:16)
[2021-10-11] MEDS: buPROPion XL 150 MG TAB.ER.24H PO SCH (08:17)
[2021-10-11] MEDS: FAMOTIDINE 20 MG TAB PO SCH (08:17)
[2021-10-11] MEDS: FLUTICASONE 50MCG/SPRAY NASAL 16GM EA NOSTRIL SCH (08:17)
[2021-10-11] MEDS: SYMBICORT 160-4.5 MCG INHALER INHALATION SCH (08:47)
--- NOTE | 2021-10-11 12:45 | P.PN ---
Subjective Progress Note Date: 10/11/21 CHIEF COMPLAINT: Abdominal pain HISTORY OF PRESENT ILLNESS: This a 56-year-old male who presented to the emergency department yesterday with complaints of right abdominal/flank pain. He had lysis of adhesions, repair of incisional hernia incisional parastomal repair, partial colectomy and omentectomy in November [address] Perez. In 2018 patient had presented for abdominal pain. Was transferred to [facility] where he underwent surgery. Today he was seen and evaluated as follow- up. States his right-sided flank/abdominal pain has improved some. He's been on a clear liquid diet which he has been tolerating. He does have output from his colostomy which is soft, light brown. He's been afebrile. Yesterday he underwent a CT of the abdomen and pelvis with contrast that showed left mid abdominal descending colostomy redemonstrated. Left-sided colonic diverticulos is without acute diverticulitis. Interval surgical repair of previously seen umbilical and left lower quadrant ventral abdominal wall hernias. Some scar tissue is present in these regions. No recurrent hernia. Hepatomegaly. No dilated small bowel, free fluid or free air. PHYSICAL EXAM: VITAL SIGNS: Reviewed GENERAL: Well-developed in no acute distress. HEENT: No sclera icterus. Extraocular movements grossly intact. Moist buccal mucosa. Head is atraumatic, normocephalic. Hears conversational speech. No nasal drainage. NECK: Supple without lymphadenopathy. CHEST: Non-labored respirations and equal bilateral excursions. CARDIOVASCULAR: Palpable 2+ radial pulses. ABDOMEN: Soft. Nondistended. Mild tenderness to the right flank/abdomen. Ostomy bag intact with loose, light brown output.. MUSCULOSKELETAL: No clubbing or cyanosis. NEUROLOGIC: No focal or lateralizing signs. Cranial nerves II through XII grossly intact. PSYCH: Appropriate affect. Alert and oriented to person, place and time. SKIN: Well perfused. Good skin turgor. ASSESSMENT: 1. Right flank pain 2. Overall nonspecific bowel gas pattern. Development of small bowel obstruction seen on abdominal x-ray, however no small bowel obstruction seen on CT abdomen and pelvis 3. Morbid obesity PLAN: 1. Advance to regular diet 2. Encourage ambulation 3. Recommend outpatient follow-up with previous [facility] surgeon 4. Further recommendations forthcoming based on clinical course Thank you for this consultation. The impression and plan of care has been dictated as directed. Dr. Chavez I performed a history and examination of this patient, discussed the same with the dictator. I agree with the dictator's note ,documented as a scribe. Any additional findings or plans will be noted. Objective - Vital Signs Vital signs: Vital Signs Temp 97.6 F 10/11/21 08:00 Pulse 71 10/11/21 08:00 Resp 17 10/11/21 08:00 BP 130/80 10/11/21 08:00 Pulse Ox 92 L 10/11/21 08:00 Intake & Output 10/10/21 10/11/21 10/11/21 18:59 06:59 18:59 Intake Total 300 200 Output Total 300 Balance 300 -100 Intake: Oral 300 200 Output: Urine 300 Other: # Voids 2 2 - Labs CBC & Chem 7: 10/09/21 12:00 10/09/21 12:00 Labs: Microbiology - Last 24 Hours (Table) 10/09/21 12:00 Blood Culture - Preliminary Blood No Growth after 24 hours 10/09/21 12:00 Blood Culture - Preliminary Blood No Growth after 24 hours
[2021-10-11 14:49] VITALS: BP 145/83; PULSE 83; TEMP 97.9
--- NOTE | 2021-10-14 16:31 | DS ---
DISCHARGE SUMMARY DATE OF DISCHARGE: 10/11/2021 CHIEF COMPLAINT: Left-sided abdominal pain and possible ileus or small-bowel obstruction. HISTORY OF PRESENT ILLNESS AND PHYSICAL EXAMINATION: Details of this man's history and physical can be found in the initial workup. LABORATORY STUDIES: While he was in the hospital he had laboratory studies, details of which can be found in the laboratory section of his chart. COURSE IN THE HOSPITAL: After admission he was placed on bedrest, started on intravenous fluids, and he was kept on clear liquids. He was seen by Surgery. He continued to pass gas in his colostomy and it was determined that he did not have a bowel obstruction or ileus and that he could be discharged. He will go home on his usual activity, diet, medication, and he will be followed up as an outpatient. FINAL DIAGNOSIS: 1. Small bowel obstruction. 2. Ventral hernia. 3. Colostomy. 4. Chronic obstructive pulmonary disease. 5. Hypertension. OPERATIONS: None. CONSULTATION: Surgery. He is improved. MMMIRNA / CULLENN: [id number] /
[2021-11-11] MEDS ORDERED: ERGOCALCIFEROL 1,250 MCG (50,000 IU) CAPSULE PO SCH (09:00)
== END 2021-10-11 16:38 | disposition home or self-care (01) | DRG 389 ==
LOC: EC 11:31 → 4SSUR 13:04
PROVIDERS: ADMIT Family Medicine; ATTEND Family Medicine
DX: K56.609 Unspecified intestinal obstruction, unspecified as to partial versus complete obstruction (principal); Z68.41 Body mass index [BMI] 40.0-44.9, adult; R16.0 Hepatomegaly, not elsewhere classified; E66.01 Morbid (severe) obesity due to excess calories; J44.9 Chronic obstructive pulmonary disease, unspecified; Z93.3 Colostomy status; Z20.822 Contact with and (suspected) exposure to COVID-19; E07.9 Disorder of thyroid, unspecified; K21.9 Gastro-esophageal reflux disease without esophagitis; I10 Essential (primary) hypertension; K57.30 Diverticulosis of large intestine without perforation or abscess without bleeding; M54.9 Dorsalgia, unspecified; G47.30 Sleep apnea, unspecified; F32.A Depression, unspecified; F41.9 Anxiety disorder, unspecified; K43.9 Ventral hernia without obstruction or gangrene; F17.210 Nicotine dependence, cigarettes, uncomplicated; Z79.51 Long term (current) use of inhaled steroids; Z79.890 Hormone replacement therapy; Z79.899 Other long term (current) drug therapy; Z87.01 Personal history of pneumonia (recurrent); Z86.14 Personal history of Methicillin resistant Staphylococcus aureus infection; Z90.49 Acquired absence of other specified parts of digestive tract; Z87.19 Personal history of other diseases of the digestive system; Z98.890 Other specified postprocedural states; Z88.8 Allergy status to other drugs, medicaments and biological substances; Z91.030 Bee allergy status; Z80.9 Family history of malignant neoplasm, unspecified
CPT/HCPCS: 36415; 74018; 74177; 80053; 82150; 83605; 83690; 85025; 87040; 87635; 94640; 96361; 96374; 99285

== ENCOUNTER → 2023-09-11 | Outpatient (CLI) | payer MEDICARE ==
--- NOTE | 2023-09-11 12:45 | CTL ---
EXAMINATION TYPE: CT Low Dose Lung DATE OF EXAM ORDERED: 09/11/2023 HISTORY:. Lung cancer screening CT DLP: 113.[address] CTDI: 3.6 mGy Automated exposure control for dose reduction was used. SCREENING VISIT: First COMPARISON: None TECHNIQUE: Low dose computed tomography scan was performed through the chest at 1 mm thick sections a nd reconstructed images in multiple planes at 1 mm and [address] DIAGNOSTIC QUALITY: Satisfactory FINDINGS: There is a 10.5 mm nodule in the lingula. There are 277.3 mm nodules in the right middle lobe. There are moderate to marked emphysematous changes. There is no airspace/consolidative density or abnormal interstitial density. There is no pleural effusion pleural thickening or pneumothorax. The great vessels chest are normal is no mediastinal, hilar or axillary adenopathy. No focal osseous lesions are seen. Limited scanning the upper abdomen feels no gross abnormality. IMPRESSION: 1. Lung RADS category 4A, 5-15% chance of malignancy for the nodule in the lingula. 3 month follow-up CT or PET scan is indicated for further evaluation. 2. Moderate to marked emphysematous change. 3. No acute cardiopulmonary disease.
== END | disposition home or self-care (01) ==
LOC: RADCTMAIN 09:25
PROVIDERS: ATTEND Family Medicine
DX: Z12.2 Encounter for screening for malignant neoplasm of respiratory organs (principal); J43.9 Emphysema, unspecified; F17.210 Nicotine dependence, cigarettes, uncomplicated
CPT/HCPCS: 71271

== ENCOUNTER → 2023-11-13 | Outpatient (CLI) | payer MEDICARE | END | disposition home or self-care (01) | LOC: LABWHC1 12:25 | PROVIDERS: ATTEND Psychiatry & Neurology Vascular Neurology | DX: Z53.9 Procedure and treatment not carried out, unspecified reason (principal) ==

== ENCOUNTER → 2023-12-08 | Outpatient (CLI) | payer MEDICARE ==
--- NOTE | 2023-12-08 12:18 | FL ---
EXAMINATION TYPE: FL barium swallow DATE OF EXAM: 12/08/2023 COMPARISON: None HISTORY: Feeling of food getting stuck, post dilatation TECHNIQUE: Single contrast water soluble technique was utilized which appear unremarkable. Single con trast barium was then utilized. FINDINGS: Esophagus has a normal contour to the gastroesophageal junction. Some mild narrowing through the prox imal intrathoracic region may be present. No hesitancy passing through this region is evident. Distal esophagus has normal motility. There is complete straightening of the esophageal bolus in the horizo ntal drinking position. During the examination appears be a few mild tertiary contractions within the distal esophagus compatible some mild presbyesophagus. No free air is noted during this examination. IMPRESSION: 1. No extravasation of contrast. No focal persistent stenosis evident. 2. Minimal distal esophageal presbyesophagus
== END | disposition home or self-care (01) ==
LOC: RADUSWWP 09:22
PROVIDERS: ATTEND Otolaryngology
DX: K22.89 Other specified disease of esophagus (principal)
CPT/HCPCS: 74220; Q9967

== ENCOUNTER → 2023-12-24 | Outpatient (CLI) | payer MEDICARE ==
--- NOTE | 2023-12-24 11:35 | CT ---
EXAMINATION TYPE: CT chest w con DATE OF EXAM: 12/24/2023 COMPARISON: 09/11/2023 HISTORY: Hx lung nodule, COPD CT DLP: 370 mGycm Automated exposure control for dose reduction was used. TECHNIQUE: CT scan of the chest is performed with IV Contrast, patient injected with 100 mL of Isovue 300. MIP Images are created on CT scanner and reviewed. 3D reconstructed images are created on an independent workstation and reviewed. FINDINGS: There are stable marked emphysematous changes. The lingular nodule measuring approximately 10 to 11 mm is stable.. There is a stable 7 to 8 mm nodule in the right middle lobe. There is a second stable adjacent 7 mm n odule in the right middle lobe. There is no abnormal air space consolidation or interstitial density. There is no pleural effusion, pleural thickening or pneumothorax. The great vessels chest is no mediastinal or axillary adenopathy. There is a mildly prominent 12.6 mm right hilar lymph node. Limited scanning through the upper and reveals no gross abnormality. No osseous lesions are seen. IMPRESSION: 1. BI-RADS Category 3 probably benign. lingular nodule and right middle lobe nodules are stable comp ared to previous.. Follow-up CT thorax in 6 months is recommended to confirm stability. 2. Mildly prominent right hilar lymph node. 3. No definite acute cardiopulmonary disease. 4. stable marked emphysematous changes. Follow-up recommendations for incidental pulmonary nodules are per [employer] [place] [employer]ion or [employer].
== END | disposition home or self-care (01) ==
LOC: RADCTMAIN 10:36
PROVIDERS: ATTEND Internal Medicine Critical Care Medicine
DX: R91.1 Solitary pulmonary nodule (principal); R59.0 Localized enlarged lymph nodes
CPT/HCPCS: 71260; Q9967

== ENCOUNTER → 2024-07-20 | Outpatient (CLI) | payer MEDICARE ==
--- NOTE | 2024-07-20 13:45 | CT ---
EXAMINATION TYPE: CT chest w con CT DLP: 508.7 mGycm, Automated exposure control for dose reduction was used. DATE OF EXAM: 07/20/2024 1:35 PM COMPARISON: CT chest 12/24/2023, CT low-dose lung 09/11/2023 CLINICAL INDICATION:Male, 59 years old with history of R91.1 Solitary pulmonary nodule; PHH, lung nod ule f/u TECHNIQUE: Multiple axial images were obtained through the chest following the administration of 100 cc of Isovue 300. . Coronal and sagittal reformats reviewed. FINDINGS: LUNGS/ PLEURA: No pleural effusion, pneumothorax, or focal consolidation. Bilateral lower lobe subseg mental atelectasis. Moderate centrilobular and paraseptal emphysematous changes. Stable right middle lobe 5.6 mm pulmonary nodule (series 4, image 42). Stable right middle lobe 5.7 mm pulmonary nodule (series 4, image 41). Stable lingular 9 mm pulmonary nodule (series 4, image 38). No new or enlarging pulmonary nodules. AIRWAY: Patent and unremarkable.. HEART: Size within normal limits. No pericardial effusion.. Coronary artery calcifications. MEDIASTINUM: No enlarged lymph nodes greater than 1 cm short axis. VASCULATURE: No aortic aneurysm. MUSCULOSKELETAL: Mild disc degeneration changes are present throughout the thoracolumbar spine. SOFT TISSUES/LYMPH NODES: Mild bilateral gynecomastia. LOWER NECK: No significant findings. UPPER ABDOMEN: No significant findings. IMPRESSION: Few stable pulmonary nodules within the right middle lobe and lingula. No new or enlarging pulmonary nodules. Follow-up CT chest in one year is recommended. [facility], , 07/20/2024 1:43 PM
== END | disposition home or self-care (01) ==
LOC: RADCTMAIN 13:06
PROVIDERS: ATTEND Internal Medicine Critical Care Medicine
DX: R91.1 Solitary pulmonary nodule (principal); R91.8 Other nonspecific abnormal finding of lung field; N62 Hypertrophy of breast
CPT/HCPCS: 71260; Q9967